=== PATIENT | female | born 1970 | race American Indian/Alaskan Native ===

== ENCOUNTER 2019-02-08 14:02 | Emergency (ER) | payer OTHER, MEDICARE ==
[2019-02-08 15:01] VITALS: BP 150/93
[2019-02-08] MEDS ORDERED: traMADol 50 MG TAB PO ONE (16:17)
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
== END 2019-02-08 18:23 | disposition home or self-care (01) ==
LOC: ED 14:02
DX: S16.1XXA Strain of muscle, fascia and tendon at neck level, initial encounter (principal); S39.012A Strain of muscle, fascia and tendon of lower back, initial encounter; F31.9 Bipolar disorder, unspecified; J45.909 Unspecified asthma, uncomplicated; F17.200 Nicotine dependence, unspecified, uncomplicated; F12.10 Cannabis abuse, uncomplicated; Z88.6 Allergy status to analgesic agent; V49.59XA Passenger injured in collision with other motor vehicles in traffic accident, initial encounter; Y93.89 Activity, other specified; Y92.410 Unspecified street and highway as the place of occurrence of the external cause; Y99.8 Other external cause status
CPT/HCPCS: 72040; 72100

== ENCOUNTER 2019-03-14 08:45 | Emergency (ER) | payer OTHER, MEDICARE ==
[2019-03-14 08:49] VITALS: BP 137/97
== END 2019-03-14 09:00 | disposition left against medical advice (07) ==
LOC: ED 08:45
DX: M54.2 Cervicalgia (principal); Z53.21 Procedure and treatment not carried out due to patient leaving prior to being seen by health care provider

== ENCOUNTER 2020-01-09 13:13 | Emergency (ER) | payer MEDICARE ==
[2020-01-09 13:32] VITALS: BP 154/103
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
== END 2020-01-09 14:16 | disposition home or self-care (01) ==
LOC: ED 13:13
DX: H10.31 Unspecified acute conjunctivitis, right eye (principal); A49.9 Bacterial infection, unspecified; F31.9 Bipolar disorder, unspecified; J45.909 Unspecified asthma, uncomplicated; Z79.899 Other long term (current) drug therapy; Z79.2 Long term (current) use of antibiotics; Z98.890 Other specified postprocedural states; Z88.6 Allergy status to analgesic agent
CPT/HCPCS: 99282

== ENCOUNTER 2020-08-31 19:03 | Emergency (ER) | payer MEDICARE ==
[2020-08-31] MEDS ORDERED: HYDROcodone/ACETAMINOPHEN 5-325 MG TAB PO ONE (19:40)
[2020-08-31 20:29] VITALS: BP 129/90
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
== END 2020-08-31 21:27 | disposition home or self-care (01) ==
LOC: ED 19:03
DX: S62.615A Displaced fracture of proximal phalanx of left ring finger, initial encounter for closed fracture (principal); S39.012A Strain of muscle, fascia and tendon of lower back, initial encounter; S29.012A Strain of muscle and tendon of back wall of thorax, initial encounter; S63.615A Unspecified sprain of left ring finger, initial encounter; I10 Essential (primary) hypertension; F31.9 Bipolar disorder, unspecified; J45.909 Unspecified asthma, uncomplicated; F17.200 Nicotine dependence, unspecified, uncomplicated; Z98.890 Other specified postprocedural states; Z79.899 Other long term (current) drug therapy; Z88.8 Allergy status to other drugs, medicaments and biological substances; V49.59XA Passenger injured in collision with other motor vehicles in traffic accident, initial encounter; Y92.410 Unspecified street and highway as the place of occurrence of the external cause; Y93.89 Activity, other specified; Y99.8 Other external cause status
CPT/HCPCS: 72070; 72100

== ENCOUNTER 2020-09-30 18:59 | Inpatient (IN) | payer MEDICARE ==
[2020-09-30] MEDS ORDERED: HEPARIN 10,000 UNITS/10 ML VIAL ONE ×2 (19:18→19:44)
[2020-09-30] MEDS ORDERED: ASPIRIN 325 MG TAB ONE (19:19)
[2020-09-30] MEDS ORDERED: CLOPIDOGREL 300 MG TAB ONE (19:20)
[2020-09-30] MEDS ORDERED: AMIODARONE 150 MG/3 ML INJ IV ONE ×2 (19:20→20:14)
[2020-09-30] MEDS ORDERED: CLOPIDOGREL 300 MG TAB PO ONE (19:21)
[2020-09-30] MEDS ORDERED: HEPARIN/ 0.45% NACL DRIP 25,000 UNIT/500 ML BAG ONE (19:21)
--- NOTE | 2020-09-30 19:30 | Emergency Department Report ---
ED Chest Pain HPI - General Stated Complaint: ARM PAIN Time Seen by Provider: 09/30/20 19:22 - History of Present Illness Initial Comments: 50-year-old female presents to ED with complaint of right arm pain and chest pain. Patient states symptoms began approximately 1 hour ago after coming home from [employer] practice. Patient reports associated diaphoresis and nausea. EMS presents with EKG concerning for STEMI. They also report pt had a run of [employer] while waiting for room assignment. MD Complaint: other -: hour(s) (1) Onset: during rest Pain Location: substernal, other (right arm) Quality: aching Consistency: constant Improves With: nothing Worsens With: nothing re: nausea, diaphoresis. denies: dyspnea - Related Data Previous Rx's Medication Instructions Recorded Last Taken Type Aspirin [Adult Aspirin] 81 mg PO DAILY #30 tablet. 04/16/20 Unknown Rx AtorvaSTATin [Lipitor] 40 mg PO QHS #30 tab 04/16/20 Unknown Rx Pantoprazole [Protonix TAB] 40 mg PO QDAC #30 tablet 04/16/20 Unknown Rx Spironolactone [Aldactone] 25 mg PO QDAY #30 tablet 04/16/20 Unknown Rx carvediloL [Coreg] 6.25 mg PO BID #60 tablet 04/16/20 Unknown Rx lisinopriL [Zestril TAB] 5 mg PO QDAY #30 tablet 04/16/20 Unknown Rx Cyclobenzaprine [Flexeril] 10 mg PO TID PRN #20 tablet 08/31/20 Unknown Rx HYDROcodone/APAP 5-325 [[place] 1 each PO Q6HR PRN #10 tablet 08/31/20 Unknown Rx 5/325] Ibuprofen [Motrin 400 MG tab] 400 mg PO TID 5 Days #15 tablet 08/31/20 Unknown Rx Allergies Allergy/AdvReac Type Severity Reaction Status Date / Time aspirin Allergy Swelling Verified 04/12/20 14:57 Heart Score - HEART Score History: Highly suspicious EKG: Non-specific Age: 45-65 Risk factors: 1-2 risk factors Troponin: > 3x normal limit HEART Score: 7 - EKG Read Time Time EKG Completed: 19:08 EKG Read Time: 19:09 ED Review of Systems ROS: Stated complaint: POSS STROKE Other details as noted in HPI Comment: All other systems reviewed and negative Constitutional: denies: fever Respiratory: denies: shortness of breath Cardiovascular: chest pain Musculoskeletal: other (reports right arm pain) ED Past Medical Hx - Past Medical History Hx Hypertension: Yes Hx Psychiatric Treatment: Yes (bipolar) Hx Asthma: Yes - Surgical History Additional Surgical History: - Social History Smoking Status: Current Every Day Smoker Substance Use Type: None - Medications Home Medications: Home Medications Medication Instructions Recorded Confirmed Last Taken Type Aspirin [Adult Aspirin] 81 mg PO DAILY #30 tablet.dr 04/16/20 Unknown Rx AtorvaSTATin [Lipitor] 40 mg PO QHS #30 tab 04/16/20 Unknown Rx Pantoprazole [Protonix TAB] 40 mg PO QDAC #30 tablet 04/16/20 Unknown Rx Spironolactone [Aldactone] 25 mg PO QDAY #30 tablet 04/16/20 Unknown Rx carvediloL [Coreg] 6.25 mg PO BID #60 tablet 04/16/20 Unknown Rx lisinopriL [Zestril TAB] 5 mg PO QDAY #30 tablet 04/16/20 Unknown Rx Cyclobenzaprine [Flexeril] 10 mg PO TID PRN #20 tablet 08/31/20 Unknown Rx HYDROcodone/APAP 5-325 [[place] 1 each PO Q6HR PRN #10 tablet 08/31/20 Unknown Rx 5/325] Ibuprofen [Motrin 400 MG tab] 400 mg PO TID 5 Days #15 tablet 08/31/20 Unknown Rx ED Physical Exam - General General appearance: alert, other (Appears uncomfortable) - Head Head exam: Present: atraumatic, normocephalic - Eye Eye exam: Present: normal appearance, EOMI - ENT ENT exam: Present: mucous membranes moist - Neck Neck exam: Present: normal inspection - Respiratory Respiratory exam: Present: normal lung sounds bilaterally. Absent: respiratory distress - Cardiovascular Cardiovascular Exam: Present: regular rate, normal rhythm - GI/Abdominal GI/Abdominal exam: Present: soft. Absent: distended, tenderness - Extremities Exam Extremities exam: Present: normal inspection - Neurological Exam Neurological exam: Present: alert, oriented X3, CN II-XII intact. Absent: motor sensory deficit - Psychiatric Psychiatric exam: Present: normal affect, normal mood - Skin Skin exam: Present: warm, dry, intact, normal color ED Course Vital Signs 09/30/20 09/30/20 09/30/20 19:02 19:25 19:32 Temperature 98 F Pulse Rate 100 H 100 H 96 H Pulse Rate [ Bilateral Throughout] Respiratory 20 20 Rate Respiratory Rate [Bilateral Throughout] Blood Pressure 134/102 Blood Pressure 138/103 [Left] O2 Sat by Pulse 100 100 Oximetry 09/30/20 09/30/20 09/30/20 20:54 21:15 21:20 Temperature 98.2 F 98.4 F Pulse Rate Pulse Rate [ Bilateral Throughout] Respiratory Rate Respiratory Rate [Bilateral Throughout] Blood Pressure 104/82 Blood Pressure [Left] O2 Sat by Pulse Oximetry 09/30/20 09/30/20 09/30/20 21:31 21:41 21:51 Temperature Pulse Rate 102 H 101 H 98 H Pulse Rate [ Bilateral Throughout] Respiratory 13 28 H 31 H Rate Respiratory Rate [Bilateral Throughout] Blood Pressure 105/79 105/79 115/92 Blood Pressure [Left] O2 Sat by Pulse 100 Oximetry 09/30/20 09/30/20 09/30/20 21:52 22:00 22:11 Temperature Pulse Rate 98 H 100 H Pulse Rate [ 101 H Bilateral Throughout] Respiratory 31 H 26 H Rate Respiratory 19 Rate [Bilateral Throughout] Blood Pressure 121/82 104/82 Blood Pressure [Left] O2 Sat by Pulse 100 100 Oximetry 09/30/20 22:21 Temperature Pulse Rate 101 H Pulse Rate [ Bilateral Throughout] Respiratory 27 H Rate Respiratory Rate [Bilateral Throughout] Blood Pressure 119/92 Blood Pressure [Left] O2 Sat by Pulse 98 Oximetry - Consultations Consultation #1: 09/30/20 19:[address] Patiño for review. Informed of pt's complaint of right arm pain and chest pain. Previous records reviewed w/ Dr Patiño. Previous EKG sent for review also. STEMI alert called. ED Medical Decision Making - Lab Data Result diagrams: 09/30/20 19:30 09/30/20 19:30 - EKG Data -: EKG Interpreted by Me EKG shows normal: sinus rhythm, axis, intervals, QRS complexes Rate: normal - EKG Data Interpretation: LVH, other (ST elevations present in lateral leads) - Medical Decision Making 50-year-old female presents to ED with right arm pain, chest pain, diaphoresis, and nausea. EKG concerning for STEMI. It was sent to accountancy professor and reviewed. STEMI alert was called. Patient reports allergy to aspirin, so aspirin was held. Patient was given Plavix and heparin. Patient had a run of V. tach also, so a bolus of amiodarone was administered. Patient taken to [facility] Department Chair by Dr. Patiño. Patient will be admitted to hospitalist, Dr. Powers. - Differential Diagnosis STEMI, PE, pneumonia Critical Care Time: Yes Critical care time in (mins) excluding proc time.: 35 Critical care attestation.: If time is entered above; I have spent that time in minutes in the direct care of this critically ill patient, excluding procedure time. Critical Care Time: 35 min ED Disposition Clinical Impression: STEMI (ST elevation myocardial infarction) Disposition: [id number] OP ADMIT IP TO THIS HOSP Is pt being admited?: Yes Condition: Stable
[2020-09-30] MEDS: HEPARIN 10,000 UNITS/10 ML VIAL IV ONE (19:34)
[2020-09-30] MEDS: AMIODARONE 150 MG in DEXTROSE 5% IN WATER 97 ML IV ONE ×2 (19:36→20:00)
[2020-09-30] MEDS ORDERED: VERAPAMIL 5 MG/2 ML INJ ONE (19:44)
[2020-09-30] MEDS ORDERED: HEPARIN/NS 5000 UNIT/500ML 1,000 ML IR ONE (19:44)
[2020-09-30] MEDS ORDERED: LIDOCAINE (2%) 20 MG/1 ML VIAL 20 ML MDV INFILTRATI ONE (19:45)
[2020-09-30] MEDS ORDERED: fentaNYL 100 MCG/2 ML INJ ONE (19:45)
[2020-09-30] MEDS ORDERED: MIDAZOLAM 5 MG/5 ML INJ MDV IV ONE (19:45)
[2020-09-30] MEDS ORDERED: NITROGLYCERIN SYRINGE 3 ML ONE (19:45)
[2020-09-30 19:46] LABS: Hematocrit 28.2 % (30.3-42.9); Hemoglobin 8.9 gm/dl (10.1-14.3); Mean Corpuscular HGB Conc 32 % (30-34); Mean Corpuscular Volume 72 fl (79-97); Platelet Count 356 K/mm3 (140-440); Red Blood Count 3.93 M/mm3 (3.65-5.03)
[2020-09-30 19:47] LABS: Red Cell Distribution Width 21.3 % (13.2-15.2)
[2020-09-30 19:51] LABS: INR 1.05 (0.87-1.13)
[2020-09-30] MEDS ORDERED: SODIUM CHLORIDE 0.9% 1000 ML 1,000 ML ONE (19:53)
[2020-09-30 19:55] LABS: Partial Thromboplastin Time 105.1 Sec. (24.2-36.6)
[2020-09-30 19:56] LABS: Creatine Kinase MB 12.8 ng/mL (0.0-4.0)
[2020-09-30 19:57] LABS: BUN/Creatinine Ratio 15; Blood Urea Nitrogen 15 mg/dL (7-17); Calcium 9.1 mg/dL (8.4-10.2); Hemolysis Index 49
[2020-09-30] MEDS: AMIODARONE 900 MG in DEXTROSE 5% IN WATER 482 ML IV SCH (20:00)
[2020-09-30 20:15] LABS: Chol/HDL Ratio 2.42 %; HDL Cholesterol 73 mg/dL (40-59); LDL Cholesterol,Direct 89 mg/dL (50-130)
[2020-09-30 20:20] LABS: Anisocytosis 1+; Hypochromasia 1+; Macrocytosis 1+; Schistocytes Rare; Total Cells Counted 100
[2020-09-30 20:21] LABS: Ovalocytes Few; Platelet Estimate Consistent w Auto; Tear Drop Cells Rare
[2020-09-30] MEDS ORDERED: ACETAMINOPHEN 325 MG TAB PO PRN (20:43)
--- NOTE | 2020-09-30 20:43 | History and Physical Report ---
History of Present Illness Chief complaint: My chest is hurting History of present illness: 50 YO Female with Asthma, Nicotine Dependence, ETOH Dependence, Bipolar Disorder presents to ED for evaluation. Patient reports "my chest is hurting". Patient states that she has experienced a sudden onset of chest pain that began over the past 4 hours. Patient states that pain is 6/10, constant, radiates to the right arm, associated with diaphoresis, associated with shortness of breath. EMS was notified and upon arrival the patient was found to be in distress. An EKG revealed EKG changes. A code stroke was called and the patient was subsequently transported to [facility] for further care and evaluation of the aforementioned symptoms. The patient was seen and evaluated in the emergency department. All lab and imaging studies reviewed. Patient found to have ST elevation AL. Patient taken urgently to the cardiac [facility]. Cardiology team consulted. Patient denies fever, chills, palpitation, productive cough, skin rash, recent ill contacts, or known exposure to COVID-19. Prior admission on 04/12/2020 reviewed. All medication listed at time of admission has been reconciled. Past History Past Medical History: other (See HPI) Past Surgical History: Social history: single, smoking Family history: diabetes, hypertension Medications and Allergies Allergies Allergy/AdvReac Type Severity Reaction Status Date / Time aspirin Allergy Swelling Verified 04/12/20 14:57 Home Medications Medication Instructions Recorded Confirmed Last Taken Type Aspirin [Adult Aspirin] 81 mg PO DAILY #30 tablet. 04/16/20 Unknown Rx AtorvaSTATin [Lipitor] 40 mg PO QHS #30 tab 04/16/20 Unknown Rx Pantoprazole [Protonix TAB] 40 mg PO QDAC #30 tablet 04/16/20 Unknown Rx Spironolactone [Aldactone] 25 mg PO QDAY #30 tablet 04/16/20 Unknown Rx carvediloL [Coreg] 6.25 mg PO BID #60 tablet 04/16/20 Unknown Rx lisinopriL [Zestril TAB] 5 mg PO QDAY #30 tablet 04/16/20 Unknown Rx Cyclobenzaprine [Flexeril] 10 mg PO TID PRN #20 tablet 08/31/20 Unknown Rx HYDROcodone/APAP 5-325 [[place] 1 each PO Q6HR PRN #10 tablet 08/31/20 Unknown Rx 5/325] Ibuprofen [Motrin 400 MG tab] 400 mg PO TID 5 Days #15 tablet 08/31/20 Unknown Rx Active Meds: Active Medications Heparin Sodium/Sodium Chloride (Heparin/ 0.45% Nacl-25,000 Unit/500 Ml) 25,000 unit in 500 mls @ 15 mls/hr IV TITRATE GANESH; Protocol Review of Systems Constitutional: no weight loss, no weight gain, no fever, no chills Ears, nose, mouth and throat: no ear pain, no ear discharge, no tinnitis, no decreased hearing, no nose pain, no nasal congestion Breasts: no change in shape, no swelling, no mass Cardiovascular: chest pain, shortness of breath, no orthopnea, no palpitations Respiratory: no cough, no excessive sputum Gastrointestinal: no abdominal pain, no nausea, no vomiting, no diarrhea Genitourinary Female: no pelvic pain, no flank pain, no dysuria, no urinary frequency, no urgency Rectal: no pain, no incontinence, no bleeding Musculoskeletal: no neck stiffness, no neck pain, no arm numbness/tingling, no low back pain Integumentary: no rash, no redness, no sores Neurological: no head injury, no paralysis, no weakness, no parathesias, no seizures, no syncope, no tremors Psychiatric: no anxiety, no change in sleep habits, no insomnia, no hypersomnia, no change in libido, no suicidal ideation, no disorientation Endocrine: no cold intolerance, no polyphagia, no excessive thirst, no polydipsia, no flushing Hematologic/Lymphatic: no easy bruising, no easy bleeding, no lymphadenopathy Allergic/Immunologic: no urticaria, no wheezing, no persistent infections, no anaphylaxis Exam - Constitutional Vitals: Temp Pulse Resp BP Pulse Ox 98 F 96 H 20 138/103 100 09/30/20 19:25 09/30/20 19:32 09/30/20 19:32 09/30/20 19:32 09/30/20 19:32 General appearance: Present: mild distress - EENT Eyes: Present: PERRL ENT: hearing intact, clear oral mucosa - Neck Neck: Present: supple, normal ROM - Respiratory Respiratory effort: normal Respiratory: bilateral: CTA - Cardiovascular Heart Sounds: Present: S1 & S2. Absent: rub, click - Extremities Extremities: pulses symmetrical, No edema Peripheral Pulses: within normal limits - Abdominal General gastrointestinal: Present: soft, non-tender, non-distended, normal bowel sounds Female genitourinary: Present: normal - Integumentary Integumentary: Present: clear, warm, dry - Musculoskeletal Musculoskeletal: gait normal, strength equal bilaterally - Psychiatric Psychiatric: appropriate mood/affect, intact judgment & insight - Neurologic Neurologic: CNII-XII intact, moves all extremities HEART Score - HEART Score Troponin: Troponin T 0.110 ng/mL (0.00-0.029) H* 09/30/20 19:30 Results - Labs CBC & Chem 7: 09/30/20 19:30 09/30/20 19:30 Labs: Abnormal lab results 09/30/20 09/30/20 09/30/20 Range/Units 19:30 19:30 19:30 Hgb 8.9 L (10.1-14.3) gm/dl Hct 28.2 L (30.3-42.9) % MCV 72 L (79-97) fl MCH 23 L (28-32) pg RDW 21.3 H (13.2-15.2) % Seg Neuts % (Manual) 73.0 H (40.0-70.0) % APTT 105.1 H* (24.2-36.6) Sec. Glucose 123 H (65-100) mg/dL Total Creatine Kinase 200 H (30-135) units/L CK-MB (CK-2) 12.8 H (0.0-4.0) ng/mL CK-MB (CK-2) Rel Index 6.4 H (0-4) Troponin T 0.110 H* (0.00-0.029) ng/mL Triglycerides 151 H (2-149) mg/dL HDL Cholesterol 73 H (40-59) mg/dL Assessment and Plan - Patient Problems (1) STEMI (ST elevation myocardial infarction) Current Visit: Yes Status: Acute Plan to address problem: EKG conducted and found to have EKG changes consistent with ST elevation AL. Cardiology team consulted. Patient taken urgently to [facility]. Patient admitted to IMCU postoperatively. Heparin drip, amiodarone drip. Further care as per cardiology team (2) Diastolic CHF Current Visit: Yes Status: Acute Qualifiers: Heart failure chronicity: acute Qualified Code(s): I50.31 - Acute diastolic (congestive) heart failure Plan to address problem: Strict I's and O, monitor urine output every shift, daily weight, afterload reduction, cardiology team consulted. (3) Nicotine dependence Current Visit: Yes Status: Acute Plan to address problem: Supportive care, smoking cessation counseling, behavior change counseling, +15 minutes. (4) Alcohol dependence Current Visit: Yes Status: Acute Plan to address problem: CIWA protocol: Thiamine, folic acid, multivitamin daily, supportive care. (5) Bipolar disorder Current Visit: Yes Status: Acute Plan to address problem: Mental health team consulted, (6) DVT prophylaxis Current Visit: No Status: Acute Plan to address problem: SCDs bilateral lower extremities while in bed, continue therapeutic anticoagulation
[2020-09-30] MEDS ORDERED: CYCLOBENZAPRINE 10 MG TAB PO PRN (20:45)
[2020-09-30] MEDS ORDERED: LORazepam 2 MG/ML VIAL IV PRN (20:54)
[2020-09-30] MEDS ORDERED: HEPARIN 10,000 UNITS/10 ML VIAL IV PRN (20:55)
[2020-09-30] MEDS: ALBUTEROL 2.5 MG/3 ML NEBU IH PRN (21:50)
[2020-09-30] MEDS ORDERED: THIAMINE 100 MG, FOLIC ACID 1 MG, MULTIPLE VITAMIN INJ, ADULT 10 ML in SODIUM CHLORIDE ... IV ONE (21:54)
[2020-09-30] MEDS ORDERED: MULTIVITAMINS ,THERAPEUTIC TAB PO ONE (21:55)
[2020-09-30] MEDS ORDERED: THIAMINE 100 MG TAB PO ONE (21:55)
[2020-09-30] MEDS: carvediloL 6.25 MG TAB PO SCH (23:20)
[2020-09-30] MEDS: oxyCODONE /ACETAMINOPHEN 5-325MG TAB PO PRN (23:21)
[2020-10-01 00:33] LABS: Hematocrit 30.4 % (30.3-42.9)
--- NOTE | 2020-10-01 00:36 | Cardiac Catherization Report ---
DATE OF PROCEDURE: 09/30/2020 CARDIAC CATHETERIZATION INDICATIONS FOR PROCEDURE: The patient is a 50-year-old -English female with a history of severe nonischemic dilated cardiomyopathy, polysubstance abuse, who presents with 1 hour of chest pain and anterior ST elevation. STEMI protocol was initiated. The patient was loaded with aspirin, Plavix, heparin. DESCRIPTION OF PROCEDURE: The patient was brought to cathode ray tube salvage processor in an urgent fashion, prepped and draped in sterile fashion. Apparently, there was a radial procedure performed in March. She has no active radial pulse at this point and thus we used a groin approach. A 6-Emirati sheath was placed in the right common femoral artery via modified Seldinger technique. Heparin given. Abnormal ACT confirmed. She has a horizontal aorta and we used a JL5 catheter to engage the left main without difficulty. Cineangiography performed in all projections. Next JR4 catheter used to engage the right coronary. Cineangiography performed in all projections. I avoided the left ventricle due to recent runs of ventricular tachycardia. She was given IV amiodarone in the emergency room. We will check an echocardiogram. She has a known severe dilated cardiomyopathy. Aortic pressure is 120/80. Her rhythm is sinus tachycardia, heart rate of 110. Angiographically normal right coronary. Her left main is without significant disease, bifurcates into left anterior descending and left circumflex. Left circumflex, moderate sized vessel, courses AV groove. No significant disease. LAD is a moderate sized vessel, courses anterior intergroove, wraps around the apex. There is a periapical cap thrombus. This is the culprit lesion with ROSEANNE 0 flow. We turned our attention to PCI. Abnormal ACT confirmed. EBU 4 guide used to engage the left main without difficulty. We used a [place] wire to cross the lesion without difficulty. We used a 2.0 balloon. This is a small distal LAD. Multiple balloon angioplasties were performed with some improved flow. [place] thrombectomy catheter was also used with some success, some improved flow. Final flow was ROSEANNE 1 to ROSEANNE 2 flow. The patient is now chest pain free. Her rhythm is now normal. We will continue amiodarone drip for now. I feel the artery is too small for a stent. We will continue IV heparin. We will need to watch her hemoglobin closely. The patient is clinically stable. I directly supervised administration of moderate sedation with fentanyl and Versed from 7:00 p.m. to 8:10 p.m. No immediate complications. CONCLUSIONS: 1. Acute atherothrombotic occlusion of the distal periapical LAD, successful POBA angioplasty and manual thrombectomy with final ROSEANNE 2 flow. 2. No other significant disease noted. 3. No left ventriculography performed due to recent ventricular tachycardia. PLAN: We will continue IV heparin, aspirin, Plavix, obviously need to watch hemoglobin. Obviously, the patient needs to hold off on polysubstance abuse. Results of procedure explained to the patient at length. Standard groin care, post sheath once ACT less than 170. The patient has been seen by ____ in March. We will turn the patient over to his practice in a.m. The patient is clinically stable at this point. TID: [id number] RECEIPT: [id number] REJI/SHARON/MAGALY
[2020-10-01 00:43] LABS: INR 1.14 (0.87-1.13)
[2020-10-01 00:56] LABS: Creatine Kinase MB 162.7 ng/mL (0.0-4.0)
[2020-10-01 02:45] LABS: Hematocrit 28.2 % (30.3-42.9); Hemoglobin 8.6 gm/dl (10.1-14.3); Mean Corpuscular HGB Conc 30 % (30-34); Mean Corpuscular Volume 71 fl (79-97); Platelet Count 311 K/mm3 (140-440); Red Blood Count 3.97 M/mm3 (3.65-5.03); Red Cell Distribution Width 20.5 % (13.2-15.2)
[2020-10-01 03:04] LABS: Alanine Aminotransferase 29 units/L (7-56); Albumin 3.6 g/dL (3.9-5); BUN/Creatinine Ratio 21; Blood Urea Nitrogen 17 mg/dL (7-17); Calcium 8.3 mg/dL (8.4-10.2); Hemolysis Index 0
--- NOTE | 2020-10-01 03:19 | XRay Report ---
CHEST 1 VIEW 10/01/2020 2:02 AM INDICATION / CLINICAL INFORMATION: post pci. COMPARISON: 04/12/20 FINDINGS: SUPPORT DEVICES: None. HEART / MEDIASTINUM: No significant abnormality. LUNGS / PLEURA: Mild bilateral interstitial prominence. No acute airspace disease. No pneumothorax. ADDITIONAL FINDINGS: No significant additional findings. IMPRESSION: 1. Mild prominence of interstitial lung markings. Signer Name: Alondra Arriaga MD Signed: 10/01/2020 3:14 AM Workstation Name: [id number]
[2020-10-01 03:23] LABS: Creatine Kinase MB 190.6 ng/mL (0.0-4.0)
[2020-10-01 03:37] LABS: Anisocytosis 1+; Total Cells Counted 100
[2020-10-01 03:38] LABS: Hypochromasia 2+; Ovalocytes Few; Platelet Estimate Consistent w Auto; Poikilocytosis 1+; Schistocytes Rare; Tear Drop Cells Rare
[2020-10-01] MEDS: oxyCODONE /ACETAMINOPHEN 5-325MG TAB PO PRN ×2 (06:02→12:41)
--- NOTE | 2020-10-01 06:39 | Consultation ---
DATE OF CONSULTATION: 09/30/2020 CARDIAC CONSULTATION REFERRING PHYSICIAN: Dr. Ervin in the ER. REASON FOR CONSULTATION: Advice and opinion regarding the patient with chest pain and ST elevation. HISTORY OF PRESENT ILLNESS: The patient is a 50-year-old -Dutch female with a history of a severe nonischemic dilated cardiomyopathy, polysubstance abuse including alcohol, tobacco, and cocaine. She also has known chronic anemia and has had a GI workup and has required transfusion. She presents with chest pain and right arm pain, anterior ST elevation, seen in the emergency room, had an episode of VT, required IV amiodarone and ACLS protocol. A 30 minutes of critical care time is spent here. STEMI protocol was initiated. The patient was given aspirin, Plavix, and heparin. The patient with 10/10 chest pain, diaphoretic and in some distress. No fevers, chills, nausea, or vomiting. Denies any COVID contact, needs to be ruled out for COVID. PAST MEDICAL HISTORY: As aforementioned. PHYSICAL EXAMINATION: VITAL SIGNS: Tele reveals sinus rhythm, heart rate of 110. She had some nonsustained VT. Blood pressure is 120/70. She is afebrile. O2 sats 99% on room air. GENERAL: This is a middle-aged -Dutch female in some moderate distress. HEENT: Sclerae are anicteric. PERRL. NECK: Supple. No masses. No JVD. CHEST: Clear to auscultation bilaterally. Good air movement CARDIOVASCULAR: Regular S1, S2. ABDOMEN: Soft, nontender, nondistended. Normoactive bowel sounds in upper quadrants. No mass or bruits. EXTREMITIES: No cyanosis, clubbing, or edema. Good peripheral pulses. SKIN: Intact. No rashes. LABORATORY DATA: WBC is 7.8, hemoglobin 8.9, hematocrit 28, platelets 356. Sodium 143, potassium 4.2, creatinine is 1.0, glucose 123. First troponin is 1.1. Total CK is 200. LDL is 89, HDL is 73. UDS is not complete. EKG reveals anterior ST elevation with reciprocal changes laterally. ASSESSMENT AND PLAN: In summary, the patient is a 50-year-old -Dutch female with a history of severe nonischemic dilated cardiomyopathy, polysubstance abuse, who presents with 1 hour of chest pain, anterior ST elevation in the presence of recent polysubstance abuse. STEMI protocol was initiated. Aspirin, Plavix, and heparin given. Further plans contingent on cardiac catheterization results. TID: [id number] RECEIPT: [id number] SBM/[id number]
[2020-10-01] MEDS: HEPARIN/ 0.45% NACL DRIP 25,000 UNIT/500 ML BAG IV SCH (07:33)
[2020-10-01] MEDS: LISINOPRIL 5 MG TAB PO SCH (09:41)
[2020-10-01] MEDS: carvediloL 6.25 MG TAB PO SCH (09:45)
[2020-10-01] MEDS: PANTOPRAZOLE 40 MG TAB PO SCH (09:45)
[2020-10-01] MEDS: SPIRONOLACTONE 25 MG TAB PO SCH (09:46)
[2020-10-01] MEDS: FOLIC ACID 1 MG TAB PO SCH (09:46)
[2020-10-01] MEDS ORDERED: ASPIRIN EC 325 MG TAB PO SCH (10:00)
[2020-10-01] MEDS ORDERED: CLOPIDOGREL 75 MG TAB PO SCH (10:00)
--- NOTE | 2020-10-01 10:27 | Consultation ---
History of Present Illness - Reason for Consult Consult date: 10/01/20 Reason for consult: hx of bipolar - History of Present Psychiatric Illness Per ED Note: 50-year-old female presents to ED with complaint of right arm pain and chest pain. Patient states symptoms began approximately 1 hour ago after coming home from [facility]. Patient reports associated diaphoresis and nausea. EMS presents with EKG concerning for STEMI. They also report pt had a run of vtach while waiting for room assignment. Randall Briones is a 50y/o male patient who was seen today. The patient is a/o x 3. She says she has a history of bipolar and hasn't been on any meds in about two years. She denies SI/HI or any hallucinations of any kind. Although she says she has attempted suicide in the past. She says she has been having a lot of mood swings due to her bipolar. The patient says she was on risperidone, trazodone and klonopin. She says they kept her stable. She could not recall why she stopped taking them. She denies any illicit drug use. Diagnoses: Bipolar Suicide attempts or Self-harm behavior: Yes Prior psychiatric hospitalizations: Yes Substance Abuse history: Denies Previous psychiatric medications tried: off for about two years Outpatient treatment: Denies PAST MEDICAL HISTORY: None reported Family Psychiatric History: None reported or documented SOCIAL HISTORY Marital Status: Single Living Arrangements: Employment Status: Employed Access to guns/weapons: Denies Education: high school History of Abuse: none reported Legal History: none reported REVIEW OF SYSTEMS Constitutional: Negative for weight loss ENT: Negative for stridor Respiratory: Negative for cough or hemoptysis All other systems reviewed and are negative MENTAL STATUS EXAMINATION General Appearance and Behavior: Age appropriate, good hygiene, wearing appropriate clothes, calm, cooperative, good eye contact Cooperation: Participating, guarded Psychomotor Behavior: normal Mood: okay Affect and affective range: congruent with stated mood Thought Process: goal oriented Thought Content: None Speech: Normal volume, Regular rate and rhythm, Suicidal Ideation: Denies Homicidal Ideation: Denies Hallucinations: Denies Delusions: None elicited Impulse Control: Normal Insight and Judgment: Normal insight and judgment Memory: Normal Attention: Limited Orientation: Alert, oriented Assessment and Plan (1) Hx of Bipolar Treatment Plan Will restart previous meds the patient states worked for her. She is to reestablish outpatient psychiatry upon discharge Risperidone 0.25mg po BID Trazodone 50mg po qhs Medical: Per primary Sitter: Defer to primary Disposition: Do not recommend acute psychiatric inpatient treatment. The city assessor to give the patient all necessary resources Will sign off. Case staffed with Dr. Austin. Medications and Allergies Allergies Allergy/AdvReac Type Severity Reaction Status Date / Time aspirin Allergy Swelling Verified 04/12/20 14:57 Home Medications Medication Instructions Recorded Confirmed Last Taken Type Aspirin [Adult Aspirin] 81 mg PO DAILY #30 tablet.dr 04/16/20 Unknown Rx AtorvaSTATin [Lipitor] 40 mg PO QHS #30 tab 04/16/20 Unknown Rx Pantoprazole [Protonix TAB] 40 mg PO QDAC #30 tablet 04/16/20 Unknown Rx Spironolactone [Aldactone] 25 mg PO QDAY #30 tablet 04/16/20 Unknown Rx carvediloL [Coreg] 6.25 mg PO BID #60 tablet 04/16/20 Unknown Rx lisinopriL [Zestril TAB] 5 mg PO QDAY #30 tablet 04/16/20 Unknown Rx Cyclobenzaprine [Flexeril] 10 mg PO TID PRN #20 tablet 08/31/20 Unknown Rx HYDROcodone/APAP 5-325 [[place] 1 each PO Q6HR PRN #10 tablet 08/31/20 Unknown Rx 5/325] Ibuprofen [Motrin 400 MG tab] 400 mg PO TID 5 Days #15 tablet 08/31/20 Unknown Rx Active Meds: Active Medications Acetaminophen (Acetaminophen 325 Mg Tab) 650 mg PO Q6H PRN PRN Reason: Pain MILD(1-3)/Fever >100.5/[place] Albuterol (Albuterol 2.5 Mg/3 Ml Nebu) 2.5 mg IH Q3HRT PRN PRN Reason: Shortness Of Breath Last Admin: 09/30/20 21:50 Dose: 2.5 mg Documented by: Aspirin (Aspirin Ec 325 Mg Tab) 325 mg PO QDAY [facility] Last Admin: 10/01/20 09:50 Dose: Not Given Documented by: Atorvastatin Calcium (Atorvastatin 40 Mg Tab) 40 mg PO QHS [facility] Last Admin: 09/30/20 23:20 Dose: 40 mg Documented by: Carvedilol (Carvedilol 6.25 Mg Tab) 6.25 mg PO BID [facility] Last Admin: 10/01/20 09:45 Dose: 6.25 mg Documented by: Clopidogrel Bisulfate (Clopidogrel 75 Mg Tab) 75 mg PO QDAY [facility] Last Admin: 10/01/20 09:45 Dose: 75 mg Documented by: Cyclobenzaprine HCl (Cyclobenzaprine 10 Mg Tab) 10 mg PO TID PRN PRN Reason: Muscle Spasm Folic Acid (Folic Acid 1 Mg Tab) 1 mg PO QDAY [facility] Last Admin: 10/01/20 09:46 Dose: 1 mg Documented by: Heparin Sodium (Porcine) (Heparin 10,000 Units/10 Ml Vial) 2,100 unit 40 unit/kg (2100 unit) IV Q6H PRN PRN Reason: Anti-Xa Assay < 0.1 units/ml Hydromorphone HCl (Hydromorphone 1 Mg/1 Ml Inj) 0.5 mg IV Q12H PRN PRN Reason: Pain , Severe (7-10) Heparin Sodium/Sodium Chloride (Heparin/ 0.45% Nacl-25,000 Unit/500 Ml) 25,000 unit in 500 mls @ 15 mls/hr IV TITRATE GANESH; Protocol Last Titration: 10/01/20 07:36 Dose: 0 units/hr, 0 mls/hr Documented by: Amiodarone HCl 900 mg/ (Dextrose) 500 mls @ 33.333 mls/hr IV DIRECT GANESH; Protocol Last Admin: 09/30/20 20:00 Dose: 0 mls Documented by: Lisinopril (Lisinopril 5 Mg Tab) 5 mg PO QDAY [facility] Last Admin: 10/01/20 09:41 Dose: 5 mg Documented by: Lorazepam (Lorazepam 2 Mg/Ml Vial) 2 mg IV Q1HR PRN PRN Reason: CIWA-Ar 8-15 Oxycodone/Acetaminophen (Oxycodone /Acetaminophen 5-325mg Tab) 1 tab PO Q12H PRN PRN Reason: Pain, Moderate (4-6) Last Admin: 10/01/20 06:02 Dose: 1 tab Documented by: Pantoprazole Sodium (Pantoprazole 40 Mg Tab) 40 mg PO QDAC [facility] Last Admin: 10/01/20 09:45 Dose: 40 mg Documented by: Sodium Chloride (Sodium Chloride 0.9% 10 Ml Flush Syringe) 10 ml IV BID [facility] Last Admin: 10/01/20 09:47 Dose: 10 ml Documented by: Sodium Chloride (Sodium Chloride 0.9% 10 Ml Flush Syringe) 10 ml IV PRN PRN PRN Reason: LINE FLUSH Spironolactone (Spironolactone 25 Mg Tab) 25 mg PO QDAY [facility] Last Admin: 10/01/20 09:46 Dose: 25 mg Documented by: Mental Status Exam - Vital signs Last Vital Signs Temp 97.7 F 10/01/20 07:00 Pulse 77 10/01/20 10:00 Resp 25 H 10/01/20 10:00 BP 112/83 10/01/20 10:00 Pulse Ox 100 10/01/20 10:00 Results Result Diagrams: 10/01/20 02:15 10/01/20 02:15 Abnormal lab results 09/30/20 09/30/20 09/30/20 Range/Units 19:30 19:30 19:30 Hgb 8.9 L (10.1-14.3) gm/dl Hct 28.2 L (30.3-42.9) % MCV 72 L (79-97) fl MCH 23 L (28-32) pg RDW 21.3 H (13.2-15.2) % Seg Neuts % (Manual) 73.0 H (40.0-70.0) % Lymphocytes % (Manual) (13.4-35.0) % Lymphocytes # (Manual) (1.2-5.4) K/mm3 PT (12.2-14.9) Sec. INR (0.87-1.13) APTT 105.1 H* (24.2-36.6) Sec. Heparin Anti-Xa Level (0.3-0.7) U.I./ml Carbon Dioxide (22-30) mmol/L Glucose 123 H (65-100) mg/dL Calcium (8.4-10.2) mg/dL AST (5-40) units/L Total Creatine Kinase 200 H (30-135) units/L CK-MB (CK-2) 12.8 H (0.0-4.0) ng/mL CK-MB (CK-2) Rel Index 6.4 H (0-4) Troponin T 0.110 H* (0.00-0.029) ng/mL Albumin (3.9-5) g/dL Triglycerides 151 H (2-149) mg/dL HDL Cholesterol 73 H (40-59) mg/dL 10/01/20 10/01/20 10/01/20 Range/Units 00:12 00:12 00:12 Hgb 9.0 L (10.1-14.3) gm/dl Hct (30.3-42.9) % MCV (79-97) fl MCH (28-32) pg RDW (13.2-15.2) % Seg Neuts % (Manual) (40.0-70.0) % Lymphocytes % (Manual) (13.4-35.0) % Lymphocytes # (Manual) (1.2-5.4) K/mm3 PT 15.1 H (12.2-14.9) Sec. INR 1.14 H (0.87-1.13) APTT 189.0 H* (24.2-36.6) Sec. Heparin Anti-Xa Level (0.3-0.7) U.I./ml Carbon Dioxide (22-30) mmol/L Glucose (65-100) mg/dL Calcium (8.4-10.2) mg/dL AST (5-40) units/L Total Creatine Kinase 1351 H (30-135) units/L CK-MB (CK-2) 162.7 H (0.0-4.0) ng/mL CK-MB (CK-2) Rel Index 12.0 H (0-4) Troponin T 3.100 H* D (0.00-0.029) ng/mL Albumin (3.9-5) g/dL Triglycerides (2-149) mg/dL HDL Cholesterol (40-59) mg/dL 10/01/20 10/01/20 10/01/20 Range/Units 02:15 02:15 02:15 Hgb 8.6 L (10.1-14.3) gm/dl Hct 28.2 L (30.3-42.9) % MCV 71 L (79-97) fl MCH 22 L (28-32) pg RDW 20.5 H (13.2-15.2) % Seg Neuts % (Manual) 85.0 H (40.0-70.0) % Lymphocytes % (Manual) 12.0 L (13.4-35.0) % Lymphocytes # (Manual) 1.0 L (1.2-5.4) K/mm3 PT (12.2-14.9) Sec. INR (0.87-1.13) APTT (24.2-36.6) Sec. Heparin Anti-Xa Level (0.3-0.7) U.I./ml Carbon Dioxide 21 L (22-30) mmol/L Glucose 115 H (65-100) mg/dL Calcium 8.3 L (8.4-10.2) mg/dL AST 185 H (5-40) units/L Total Creatine Kinase 1510 H (30-135) units/L CK-MB (CK-2) 190.6 H (0.0-4.0) ng/mL CK-MB (CK-2) Rel Index 12.6 H (0-4) Troponin T 3.120 H* (0.00-0.029) ng/mL Albumin 3.6 L (3.9-5) g/dL Triglycerides (2-149) mg/dL HDL Cholesterol (40-59) mg/dL 10/01/20 Range/Units 02:15 Hgb (10.1-14.3) gm/dl Hct (30.3-42.9) % MCV (79-97) fl MCH (28-32) pg RDW (13.2-15.2) % Seg Neuts % (Manual) (40.0-70.0) % Lymphocytes % (Manual) (13.4-35.0) % Lymphocytes # (Manual) (1.2-5.4) K/mm3 PT (12.2-14.9) Sec. INR (0.87-1.13) APTT (24.2-36.6) Sec. Heparin Anti-Xa Level 1.35 H (0.3-0.7) U.I./ml Carbon Dioxide (22-30) mmol/L Glucose (65-100) mg/dL Calcium (8.4-10.2) mg/dL AST (5-40) units/L Total Creatine Kinase (30-135) units/L CK-MB (CK-2) (0.0-4.0) ng/mL CK-MB (CK-2) Rel Index (0-4) Troponin T (0.00-0.029) ng/mL Albumin (3.9-5) g/dL Triglycerides (2-149) mg/dL HDL Cholesterol (40-59) mg/dL All other labs normal.
--- NOTE | 2020-10-01 10:48 | Progress Note ---
Assessment and Plan Acute anterior NH s/p POBA and manual thrombectomy. ASA allergy Transient VT -on IV amiodarone Hx of NICMP 03/2020 LHC: normal coronaries, EF 25-30%. Chronic Anemia Poly-substance abuse Subjective Date of service: 10/01/20 Interval history: Patient denies chest pain. No hematoma of right groin cath site. Objective Vital Signs Temp Pulse Pulse Pulse Resp Resp BP 10/01/20 10:00 77 25 H 112/83 10/01/20 09:46 79 104/79 10/01/20 09:45 77 23 109/68 10/01/20 09:41 79 104/79 10/01/20 09:30 78 13 104/76 10/01/20 09:15 79 21 104/81 10/01/20 09:00 77 21 122/83 10/01/20 08:45 86 18 127/84 10/01/20 08:42 10/01/20 08:31 78 22 122/87 10/01/20 08:15 80 22 112/81 10/01/20 08:01 80 20 112/81 10/01/20 08:00 80 80 20 10/01/20 07:45 81 16 123/93 10/01/20 07:30 80 26 H 128/100 10/01/20 07:15 81 25 H 121/93 10/01/20 07:00 97.7 F 79 23 120/94 10/01/20 06:45 78 24 123/92 10/01/20 06:30 80 22 117/93 10/01/20 06:15 79 23 120/93 10/01/20 06:02 20 10/01/20 06:00 81 27 H 114/89 10/01/20 05:45 81 23 120/94 10/01/20 05:30 82 20 111/86 10/01/20 05:15 81 22 119/88 10/01/20 05:00 83 21 115/88 10/01/20 04:45 82 22 114/87 10/01/20 04:30 82 22 114/86 10/01/20 04:15 83 15 114/88 10/01/20 04:00 97.8 F 85 90 23 117/87 10/01/20 03:45 85 24 114/85 08/05/21 03:30 82 17 105/84 08/05/21 03:15 85 22 116/85 10/01/20 03:01 85 25 H 111/87 10/01/20 02:45 87 22 109/80 10/01/20 02:30 86 23 109/78 10/01/20 02:15 86 23 116/82 10/01/20 02:00 88 23 109/82 10/01/20 01:45 86 17 96/74 10/01/20 01:30 84 21 113/88 10/01/20 01:15 86 24 107/83 10/01/20 01:00 82 24 101/71 10/01/20 00:45 88 23 109/81 10/01/20 00:30 89 23 115/89 10/01/20 00:15 91 H 24 118/93 10/01/20 00:00 98.1 F 90 25 H 120/92 09/30/20 23:45 94 H 28 H 118/89 09/30/20 23:31 97 H 25 H 111/84 09/30/20 23:20 98 H 112/81 09/30/20 23:15 99 H 21 112/81 09/30/20 23:00 99 H 30 H 118/87 09/30/20 22:55 98 H 27 H 110/81 09/30/20 22:51 100 H 28 H 110/81 09/30/20 22:41 99 H 27 H 122/93 09/30/20 22:30 100 H 26 H 122/93 09/30/20 22:21 101 H 27 H 119/92 09/30/20 22:11 100 H 26 H 104/82 09/30/20 22:00 98 H 31 H 121/82 09/30/20 21:52 101 H 19 09/30/20 21:51 98 H 31 H 115/92 09/30/20 21:47 100 H 09/30/20 21:41 101 H 28 H 105/79 09/30/20 21:31 102 H 13 105/79 09/30/20 21:20 104/82 09/30/20 21:15 98.4 F 09/30/20 21:07 100 H 26 H 09/30/20 20:54 98.2 F 09/30/20 19:32 96 H 20 09/30/20 19:25 98 F 100 H 20 134/102 09/30/20 19:02 100 H BP Pulse Ox 10/01/20 10:00 100 10/01/20 09:46 10/01/20 09:45 10/01/20 09:41 10/01/20 09:30 100 10/01/20 09:15 100 10/01/20 09:00 100 10/01/20 08:45 100 10/01/20 08:42 98 10/01/20 08:31 100 10/01/20 08:15 10/01/20 08:01 94 10/01/20 08:00 94 10/01/20 07:45 100 10/01/20 07:30 98 10/01/20 07:15 98 10/01/20 07:00 97 10/01/20 06:45 94 10/01/20 06:30 94 10/01/20 06:15 99 10/01/20 06:02 10/01/20 06:00 100 10/01/20 05:45 98 10/01/20 05:30 98 10/01/20 05:15 99 10/01/20 05:00 10/01/20 04:45 99 10/01/20 04:30 99 10/01/20 04:15 93 10/01/20 04:00 94 10/01/20 03:45 95 10/01/20 03:30 100 10/01/20 03:15 99 10/01/20 03:01 99 10/01/20 02:45 100 10/01/20 02:30 100 10/01/20 02:15 10/01/20 02:00 99 10/01/20 01:45 100 10/01/20 01:30 99 10/01/20 01:15 98 10/01/20 01:00 97 10/01/20 00:45 96 10/01/20 00:30 100 10/01/20 00:15 97 10/01/20 00:00 92 09/30/20 23:45 90 09/30/20 23:31 09/30/20 23:20 09/30/20 23:15 98 09/30/20 23:00 99 09/30/20 22:55 99 09/30/20 22:51 98 09/30/20 22:41 98 09/30/20 22:30 99 09/30/20 22:21 98 09/30/20 22:11 100 09/30/20 22:00 100 09/30/20 21:52 09/30/20 21:51 100 09/30/20 21:47 09/30/20 21:41 09/30/20 21:31 09/30/20 21:20 09/30/20 21:15 09/30/20 21:07 100 09/30/20 20:54 09/30/20 19:32 138/103 100 09/30/20 19:25 100 09/30/20 19:02 - Physical Examination General: No Apparent Distress HEENT: Positive: PERRL Cardiac: Positive: Reg Rate and Rhythm Lungs: Positive: Decreased Breath Sounds Neuro: Positive: Grossly Intact Incision: Cardiac Cath Site (right groin) Extremities: Absent: edema - Labs and Meds Cardiac Enzymes 09/30/20 10/01/20 10/01/20 Range/Units 19:30 00:12 02:15 AST (5-40) units/L CK-MB (CK-2) 12.8 H 162.7 H 190.6 H (0.0-4.0) ng/mL 10/01/20 Range/Units 02:15 AST 185 H (5-40) units/L CK-MB (CK-2) (0.0-4.0) ng/mL Coagulation 09/30/20 10/01/20 Range/Units 19:30 00:12 PT 14.2 15.1 H (12.2-14.9) Sec. INR 1.05 1.14 H (0.87-1.13) APTT 105.1 H* 189.0 H* (24.2-36.6) Sec. Lipids 09/30/20 Range/Units 19:30 Triglycerides 151 H (2-149) mg/dL Cholesterol 177 (50-199) mg/dL HDL Cholesterol 73 H (40-59) mg/dL Cholesterol/HDL Ratio 2.42 % CBC 09/30/20 10/01/20 10/01/20 Range/Units 19:30 00:12 02:15 WBC 7.8 8.1 (4.5-11.0) K/mm3 RBC 3.93 3.97 (3.65-5.03) M/mm3 Hgb 8.9 L 9.0 L 8.6 L (10.1-14.3) gm/dl Hct 28.2 L 30.4 28.2 L (30.3-42.9) % Plt Count 356 311 (140-440) K/mm3 Comprehensive Metabolic Panel 09/30/20 10/01/20 Range/Units 19:30 02:15 Sodium 143 138 (137-145) mmol/L Potassium 4.2 4.1 (3.6-5.0) mmol/L Chloride 106.2 106.2 (98-107) mmol/L Carbon Dioxide 25 21 L (22-30) mmol/L BUN 15 17 (7-17) mg/dL Creatinine 1.0 0.8 (0.6-1.2) mg/dL Glucose 123 H 115 H (65-100) mg/dL Calcium 9.1 8.3 L (8.4-10.2) mg/dL AST 185 H (5-40) units/L ALT 29 (7-56) units/L Alkaline Phosphatase 98 (35-129) units/L Total Protein 6.4 (6.3-8.2) g/dL Albumin 3.6 L (3.9-5) g/dL
[2020-10-01] MEDS: AMIODARONE 900 MG in DEXTROSE 5% IN WATER 482 ML IV SCH (11:00)
--- NOTE | 2020-10-01 11:12 | Electrocardiograph Report ---
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
--- NOTE | 2020-10-01 11:13 | Electrocardiograph Report ---
[facility] Test Date: 2020-09-30 Test Time: 22:54:46 Pat Name: FELIPA STOUT Department: Room: A257 1 Gender: F Student Dean: : 1970 Requested By: LOREN KWOK Order Number: [id number] Reading MD: Hayley Palomo Measurements Intervals [place] Rate: 98 P: 46 NE: 130 QRS: -42 QRSD: 95 T: QT: 372 QTc: 477 Interpretive Statements Sinus rhythm Acute anterolateral wall ST elevation myocardial infarction in evolution Compared to ECG 09/30/2020 19:02:18 ST segment abnormalities are partially resolved Electronically Signed On 10-01-2020 11:13:09 EDT by Hayley Palomo
--- NOTE | 2020-10-01 11:17 | Electrocardiograph Report ---
[facility] Test Date: 2020-10-01 Test Time: 07:47:59 Pat Name: FELIPA STOUT Department: Room: A257 1 Gender: F Manager Progressive Care: SRAVAN : 1970 Requested By: LOREN KWOK Order Number: [id number] Reading MD: Hayley Palomo Measurements Intervals [place] Rate: 81 P: 97 NM: 130 QRS: -46 QRSD: 98 T: 59 QT: 476 QTc: 552 Interpretive Statements Sinus rhythm Anterolateral KS in evolution Compared to ECG 09/30/2020 22:54:46 No significant change Electronically Signed On 10-01-2020 11:17:49 EDT by Hayley Palomo
[2020-10-01] MEDS: risperiDONE 0.25 MG TAB PO SCH ×2 (12:41→21:27)
[2020-10-01] MEDS: METOPROLOL TARTRATE 50 MG TAB PO SCH ×2 (16:27→21:27)
[2020-10-01] MEDS: HYDROmorphone 1 MG/1 ML INJ IV PRN ×2 (16:30→21:25)
--- NOTE | 2020-10-01 17:46 | Event Note ---
Date: 10/01/20 Echocardiogram shows a severe dilated cardiomyopathy, ejection fraction 25%. Most significantly, there is a large mural thrombus in the distal septal wall and apex, with a broad base and mobile peduncle. The LV thrombus is the likely source of the patient's LAD thrombosis. We will continue full dose heparin, and begin warfarin therapy for long-term oral anticoagulation. When warfarin is therapeutic, we will discontinue Plavix and heparin. Patient has a recent history of anemia and suspected GI bleed 5 months ago, therefore warfarin therapy will have to be managed judiciously.
--- NOTE | 2020-10-01 18:02 | History and Physical Report ---
History of Present Illness Date of examination: 10/01/20 Date of admission: 09/30/20 20:43 History of present illness: 50 YO Female with Asthma, Nicotine Dependence, ETOH Dependence, Bipolar Disorder presents to ED for evaluation. Patient reports "my chest is hurting". Patient states that she has experienced a sudden onset of chest pain that began over the past 4 hours. Patient states that pain is 6/10, constant, radiates to the right arm, associated with diaphoresis, associated with shortness of breath. EMS was notified and upon arrival the patient was found to be in distress. An EKG revealed EKG changes. A code stroke was called and the patient was subsequently transported to [facility] for further care and evaluation of the aforementioned symptoms. The patient was seen and evaluated in the emergency department. All lab and imaging studies reviewed. Patient found to have ST elevation IN. Patient taken urgently to the cardiac [facility]. Cardiology team consulted. Patient denies fever, chills, palpitation, productive cough, skin rash, recent ill contacts, or known exposure to COVID-19. Prior admission on 04/12/2020 reviewed. All medication listed at time of admission has been reconciled. Past History Past Medical History: other (See HPI) Past Surgical History: Social history: single, smoking Family history: diabetes, hypertension Medications and Allergies Allergies Allergy/AdvReac Type Severity Reaction Status Date / Time aspirin Allergy Swelling Verified 04/12/20 14:57 Home Medications Medication Instructions Recorded Confirmed Last Taken Type Aspirin [Adult Aspirin] 81 mg PO DAILY #30 tablet. 04/16/20 Unknown Rx AtorvaSTATin [Lipitor] 40 mg PO QHS #30 tab 04/16/20 Unknown Rx Pantoprazole [Protonix TAB] 40 mg PO QDAC #30 tablet 04/16/20 Unknown Rx Spironolactone [Aldactone] 25 mg PO QDAY #30 tablet 04/16/20 Unknown Rx carvediloL [Coreg] 6.25 mg PO BID #60 tablet 04/16/20 Unknown Rx lisinopriL [Zestril TAB] 5 mg PO QDAY #30 tablet 04/16/20 Unknown Rx Cyclobenzaprine [Flexeril] 10 mg PO TID PRN #20 tablet 08/31/20 Unknown Rx HYDROcodone/APAP 5-325 [Etlan 1 each PO Q6HR PRN #10 tablet 08/31/20 Unknown Rx 5/325] Ibuprofen [Motrin 400 MG tab] 400 mg PO TID 5 Days #15 tablet 08/31/20 Unknown Rx Active Meds: Active Medications Acetaminophen (Acetaminophen 325 Mg Tab) 650 mg PO Q6H PRN PRN Reason: Pain MILD(1-3)/Fever >100.5/[place] Albuterol (Albuterol 2.5 Mg/3 Ml Nebu) 2.5 mg IH Q3HRT PRN PRN Reason: Shortness Of Breath Last Admin: 09/30/20 21:50 Dose: 2.5 mg Documented by: Atorvastatin Calcium (Atorvastatin 40 Mg Tab) 40 mg PO QHS [facility] Last Admin: 09/30/20 23:20 Dose: 40 mg Documented by: Clopidogrel Bisulfate (Clopidogrel 75 Mg Tab) 75 mg PO BID [facility] Cyclobenzaprine HCl (Cyclobenzaprine 10 Mg Tab) 10 mg PO TID PRN PRN Reason: Muscle Spasm Folic Acid (Folic Acid 1 Mg Tab) 1 mg PO QDAY [facility] Last Admin: 10/01/20 09:46 Dose: 1 mg Documented by: Heparin Sodium (Porcine) (Heparin 10,000 Units/10 Ml Vial) 2,100 unit 40 unit/kg (2100 unit) IV Q6H PRN PRN Reason: Anti-Xa Assay < 0.1 units/ml Hydromorphone HCl (Hydromorphone 1 Mg/1 Ml Inj) 0.5 mg IV Q12H PRN PRN Reason: Pain , Severe (7-10) Last Admin: 10/01/20 16:30 Dose: 0.5 mg Documented by: Heparin Sodium/Sodium Chloride (Heparin/ 0.45% Nacl-25,000 Unit/500 Ml) 25,000 unit in 500 mls @ 15 mls/hr IV TITRATE [facility]; Protocol Last Titration: 10/01/20 09:30 Dose: 900 units/hr, 18 mls/hr Documented by: Isosorbide Mononitrate (Isosorbide Mononitrate Er 30 Mg Tab) 30 mg PO QDAY [facility] Last Admin: 10/01/20 16:26 Dose: 30 mg Documented by: Lisinopril (Lisinopril 5 Mg Tab) 5 mg PO QDAY [facility] Last Admin: 10/01/20 09:41 Dose: 5 mg Documented by: Lorazepam (Lorazepam 2 Mg/Ml Vial) 2 mg IV Q1HR PRN PRN Reason: CIWA-Ar 8-15 Metoprolol Tartrate (Metoprolol Tartrate 50 Mg Tab) 50 mg PO BID [facility] Last Admin: 10/01/20 16:27 Dose: 50 mg Documented by: Oxycodone/Acetaminophen (Oxycodone /Acetaminophen 5-325mg Tab) 1 tab PO Q12H PRN PRN Reason: Pain, Moderate (4-6) Last Admin: 10/01/20 12:41 Dose: 1 tab Documented by: Pantoprazole Sodium (Pantoprazole 40 Mg Tab) 40 mg PO QDAC [facility] Last Admin: 10/01/20 09:45 Dose: 40 mg Documented by: Risperidone (Risperidone 0.25 Mg Tab) 0.25 mg PO BID [facility] Last Admin: 10/01/20 12:41 Dose: 0.25 mg Documented by: Sodium Chloride (Sodium Chloride 0.9% 10 Ml Flush Syringe) 10 ml IV BID [facility] Last Admin: 10/01/20 09:47 Dose: 10 ml Documented by: Sodium Chloride (Sodium Chloride 0.9% 10 Ml Flush Syringe) 10 ml IV PRN PRN PRN Reason: LINE FLUSH Spironolactone (Spironolactone 25 Mg Tab) 25 mg PO QDAY [facility] Last Admin: 10/01/20 09:46 Dose: 25 mg Documented by: Trazodone HCl (Trazodone 50 Mg Tab) 50 mg PO QHS [facility] Warfarin Sodium (Warfarin 5 Mg Tab) 5 mg PO DAILY@1700 [facility]; Protocol Exam - Constitutional Vitals: Temp Pulse Resp BP Pulse Ox 97.9 F 79 16 111/79 97 10/01/20 12:00 10/01/20 16:15 10/01/20 16:15 10/01/20 16:15 10/01/20 16:15 HEART Score - HEART Score EKG: Non-specific Age: 45-65 Risk factors: 1-2 risk factors Troponin: Troponin T 3.120 ng/mL (0.00-0.029) H* 10/01/20 02:15 Troponin: > 3x normal limit Results - Labs CBC & Chem 7: 10/01/20 02:15 10/01/20 02:15 Labs: Laboratory Last Values WBC 8.1 K/mm3 (4.5-11.0) 10/01/20 02:15 RBC 3.97 M/mm3 (3.65-5.03) 10/01/20 02:15 Hgb 8.6 gm/dl (10.1-14.3) L 10/01/20 02:15 Hct 28.2 % (30.3-42.9) L 10/01/20 02:15 MCV 71 fl (79-97) L 10/01/20 02:15 MCH 22 pg (28-32) L 10/01/20 02:15 MCHC 30 % (30-34) 10/01/20 02:15 RDW 20.5 % (13.2-15.2) H 10/01/20 02:15 Plt Count 311 K/mm3 (140-440) 10/01/20 02:15 Add Manual Diff Complete 10/01/20 02:15 Total Counted 100 10/01/20 02:15 Seg Neuts % (Manual) 85.0 % (40.0-70.0) H 10/01/20 02:15 Lymphocytes % (Manual) 12.0 % (13.4-35.0) L 10/01/20 02:15 Monocytes % (Manual) 3.0 % (0.0-7.3) 10/01/20 02:15 Eosinophils % (Manual) 3.0 % (0.0-4.3) 09/30/20 19:30 Nucleated RBC % Not Reportable 10/01/20 02:15 Seg Neutrophils # Man 6.9 K/mm3 (1.8-7.7) 10/01/20 02:15 Band Neutrophils # 0.0 K/mm3 10/01/20 02:15 Lymphocytes # (Manual) 1.0 K/mm3 (1.2-5.4) L 10/01/20 02:15 Abs React Lymphs (Man) 0.0 K/mm3 10/01/20 02:15 Monocytes # (Manual) 0.2 K/mm3 (0.0-0.8) 10/01/20 02:15 Eosinophils # (Manual) 0.0 K/mm3 (0.0-0.4) 10/01/20 02:15 Basophils # (Manual) 0.0 K/mm3 (0.0-0.1) 10/01/20 02:15 Metamyelocytes # 0.0 K/mm3 10/01/20 02:15 Myelocytes # 0.0 K/mm3 10/01/20 02:15 Promyelocytes # 0.0 K/mm3 10/01/20 02:15 Blast Cells # 0.0 K/mm3 10/01/20 02:15 WBC Morphology Not Reportable 10/01/20 02:15 Hypersegmented Neuts Not Reportable 10/01/20 02:15 Hyposegmented Neuts Not Reportable 10/01/20 02:15 Hypogranular Neuts Not Reportable 10/01/20 02:15 Smudge Cells Not Reportable 10/01/20 02:15 Toxic Granulation Not Reportable 10/01/20 02:15 Toxic Vacuolation Not Reportable 10/01/20 02:15 Dohle Bodies Not Reportable 10/01/20 02:15 Pelger-Huet Anomaly Not Reportable 10/01/20 02:15 Luz Maria Rods Not Reportable 10/01/20 02:15 Platelet Estimate Consistent w auto 10/01/20 02:15 Clumped Platelets Not Reportable 10/01/20 02:15 Plt Clumps, EDTA Not Reportable 10/01/20 02:15 Large Platelets Not Reportable 10/01/20 02:15 Giant Platelets Not Reportable 10/01/20 02:15 Platelet Satelliting Not Reportable 10/01/20 02:15 Plt Morphology Comment Not Reportable 10/01/20 02:15 RBC Morphology Not Reportable 10/01/20 02:15 Dimorphic RBCs Not Reportable 10/01/20 02:15 Polychromasia Not Reportable 10/01/20 02:15 Hypochromasia 2+ 10/01/20 02:15 Poikilocytosis 1+ 10/01/20 02:15 Anisocytosis 1+ 10/01/20 02:15 Microcytosis Not Reportable 10/01/20 02:15 Macrocytosis Not Reportable 10/01/20 02:15 Spherocytes Not Reportable 10/01/20 02:15 Pappenheimer Bodies Not Reportable 10/01/20 02:15 Sickle Cells Not Reportable 10/01/20 02:15 Target Cells Not Reportable 10/01/20 02:15 Tear Drop Cells Rare 10/01/20 02:15 Ovalocytes Few 10/01/20 02:15 Helmet Cells Not Reportable 10/01/20 02:15 [place] Bodies Not Reportable 10/01/20 02:15 [place] Rings Not Reportable 10/01/20 02:15 Marilee Cells Not Reportable 10/01/20 02:15 Bite Cells Not Reportable 10/01/20 02:15 Crenated Cell Not Reportable 10/01/20 02:15 Elliptocytes Few 10/01/20 02:15 Acanthocytes (Spur) Not Reportable 10/01/20 02:15 Rouleaux Not Reportable 10/01/20 02:15 Hemoglobin C Crystals Not Reportable 10/01/20 02:15 Schistocytes Rare 10/01/20 02:15 Malaria parasites Not Reportable 10/01/20 02:15 Mamadou Bodies Not Reportable 10/01/20 02:15 Hem Pathologist Commnt No 10/01/20 02:15 PT 15.1 Sec. (12.2-14.9) H 10/01/20 00:12 INR 1.14 (0.87-1.13) H 10/01/20 00:12 APTT 189.0 Sec. (24.2-36.6) H* 10/01/20 00:12 Heparin Anti-Xa Level 0.60 U.I./ml (0.3-0.7) 10/01/20 16:24 Sodium 138 mmol/L (137-145) 10/01/20 02:15 Potassium 4.1 mmol/L (3.6-5.0) 10/01/20 02:15 Chloride 106.2 mmol/L (98-107) 10/01/20 02:15 Carbon Dioxide 21 mmol/L (22-30) L 10/01/20 02:15 Anion Gap 15 mmol/L 10/01/20 02:15 BUN 17 mg/dL (7-17) 10/01/20 02:15 Creatinine 0.8 mg/dL (0.6-1.2) 10/01/20 02:15 Estimated GFR > 60 ml/min 10/01/20 02:15 BUN/Creatinine Ratio 21 % 10/01/20 02:15 Glucose 115 mg/dL (65-100) H 10/01/20 02:15 Calcium 8.3 mg/dL (8.4-10.2) L 10/01/20 02:15 Total Bilirubin 0.20 mg/dL (0.1-1.2) 10/01/20 02:15 AST 185 units/L (5-40) H 10/01/20 02:15 ALT 29 units/L (7-56) 10/01/20 02:15 Alkaline Phosphatase 98 units/L (35-129) 10/01/20 02:15 Total Creatine Kinase 1510 units/L (30-135) H 10/01/20 02:15 CK-MB (CK-2) 190.6 ng/mL (0.0-4.0) H 10/01/20 02:15 CK-MB (CK-2) Rel Index 12.6 (0-4) H 10/01/20 02:15 Troponin T 3.120 ng/mL (0.00-0.029) H* 10/01/20 02:15 Total Protein 6.4 g/dL (6.3-8.2) 10/01/20 02:15 Albumin 3.6 g/dL (3.9-5) L 10/01/20 02:15 Albumin/Globulin Ratio 1.3 % 10/01/20 02:15 Triglycerides 151 mg/dL (2-149) H 09/30/20 19:30 Cholesterol 177 mg/dL (50-199) 09/30/20 19:30 LDL Cholesterol Direct 89 mg/dL (50-130) 09/30/20 19:30 HDL Cholesterol 73 mg/dL (40-59) H 09/30/20 19:30 Cholesterol/HDL Ratio 2.42 % 09/30/20 19:30 Coronavirus (PCR) Negative (Negative) 10/01/20 08:09 Blood Type O POSITIVE 09/30/20 19:30 Antibody Screen Negative 09/30/20 19:30 Bethea/IV: Voiding Method Bedpan Assessment and Plan Assessment and plan: Assessment and Plan - Patient Problems (1) STEMI (ST elevation myocardial infarction) Current Visit: Yes Status: Acute Plan to address problem: EKG conducted and found to have EKG changes consistent with ST elevation IN. Cardiology team consulted. Patient taken urgently to [facility]. Patient admitted to IMCU postoperatively. Heparin drip, amiodarone drip. Further care as per cardiology team (2) Diastolic CHF Current Visit: Yes Status: Acute Qualifiers: Heart failure chronicity: acute Qualified Code(s): I50.31 - Acute diastolic (congestive) heart failure Plan to address problem: Strict I's and O, monitor urine output every shift, daily weight, afterload reduction, cardiology team consulted. (3) Nicotine dependence Current Visit: Yes Status: Acute Plan to address problem: Supportive care, smoking cessation counseling, behavior change counseling, +15 minutes. (4) Alcohol dependence Current Visit: Yes Status: Acute Plan to address problem: CIWA protocol: Thiamine, folic acid, multivitamin daily, supportive care. (5) Bipolar disorder Current Visit: Yes Status: Acute Plan to address problem: Mental health team consulted, (6) DVT prophylaxis Current Visit: No Status: Acute Plan to address problem: SCDs bilateral lower extremities while in bed, continue therapeutic anticoagulation VTE prophylaxis?: Chemical Plan of care discussed with patient/family: Yes
[2020-10-01] MEDS: CLOPIDOGREL 75 MG TAB PO SCH (21:27)
[2020-10-01] MEDS: traZODone 50 MG TAB PO SCH (21:33)
[2020-10-01] MEDS ORDERED: SODIUM CHLORIDE 0.9% 250ML 250 ML IV ONE (23:49)
[2020-10-02] MEDS: HYDROmorphone 1 MG/1 ML INJ IV PRN ×2 (04:28→17:46)
[2020-10-02 05:44] LABS: Hematocrit 24.9 % (30.3-42.9); Hemoglobin 7.5 gm/dl (10.1-14.3)
[2020-10-02 05:45] LABS: INR 0.97 (0.87-1.13)
[2020-10-02] MEDS: PANTOPRAZOLE 40 MG TAB PO SCH (07:08)
[2020-10-02] MEDS: HEPARIN/ 0.45% NACL DRIP 25,000 UNIT/500 ML BAG IV SCH (07:08)
--- NOTE | 2020-10-02 08:08 | Progress Note ---
Assessment and Plan Assessment and Plan - Patient Problems (1) STEMI (ST elevation myocardial infarction) Current Visit: Yes Status: Acute Plan to address problem: 50-year-old woman who presented during the night with chest pain and EKG consistent with an acute anterolateral wall ST elevation myocardial infarction. She was emergently taken to the cardiac catheterization lab where her angiogram showed a distal thrombotic occlusion of the LAD just after the apex. Her right and left coronary arteries were otherwise angiographically normal. She underwent export thrombectomy and some distal plain-old balloon angioplasty. She is currently in the ICU, looks and feels well, no further chest pain. She is in sinus rhythm and remains hemodynamically stable. 5 months ago, she was admitted to this hospital with a non-ST elevation my ocardial infarction. Her ECG at that time was deep inferolateral T wave ischemic changes. Cardiac catheterization then showed angiographically normal coronary arteries including widely patent LAD with no lesions and no thrombus. LV function assessment showed a left ventricular ejection fraction 25 to 30%. The working diagnosis at the time was a possible Takotsubo stress related non-ST elevation AR. She did not maintain optimal outpatient follow-up, and is unclear if she had a follow-up echocardiographic reassessment of left ventricular systolic function. Prior to the current event which appears consistent with transient thrombotic occlusion of the LAD, she denies any use of cocaine but does admit to chronic marijuana use. Recommendations: Patient is aspirin allergic, we will treat with Plavix 75 mg twice daily. Continue intravenous heparin for 48 hours post AR. Echocardiogram for left ventricular function assessment. Add beta-iain, long-acting nitrates, and GALI inhibitor. As outpatient, she will also benefit from a hematologic assessment for a prothrombotic disorder. (2) Diastolic CHF Current Visit: Yes Status: Acute Qualifiers: Heart failure chronicity: acute Qualified Code(s): I50.31 - Acute diastolic (congestive) heart failure Plan to address problem: Echocardiogram shows a severe dilated cardiomyopathy, ejection fraction 25%. Most significantly, there is a large mural thrombus in the distal septal wall and apex, with a broad base and mobile peduncle. The LV thrombus is the likely source of the patient's LAD thrombosis. We will continue full dose heparin, and begin warfarin therapy for long-term oral anticoagulation. When warfarin is therapeutic, we will discontinue Plavix and heparin. Patient has a recent history of anemia and suspected GI bleed 5 months ago, therefore warfarin therapy will have to be managed judiciously. (3) Nicotine dependence Current Visit: Yes Status: Acute Plan to address problem: Supportive care, smoking cessation counseling, behavior change counseling, +15 minutes. (4) Alcohol dependence Current Visit: Yes Status: Acute Plan to address problem: CIWA protocol: Thiamine, folic acid, multivitamin daily, supportive care. (5) Bipolar disorder Current Visit: Yes Status: Acute Plan to address problem: Mental health team consulted, (6) DVT prophylaxis Current Visit: No Status: Acute Plan to address problem: SCDs bilateral lower extremities while in bed, continue therapeutic anticoagulation Subjective Date of service: 10/01/20 Principal diagnosis: STEMI Interval history: 50 YO Female with Asthma, Nicotine Dependence, ETOH Dependence, Bipolar Disorder presents to ED for evaluation. Patient reports "my chest is hurting". Patient states that she has experienced a sudden onset of chest pain that began over the past 4 hours. Patient states that pain is 6/10, constant, radiates to the right arm, associated with diaphoresis, associated with shortness of breath. EMS was notified and upon arrival the patient was found to be in distress. An EKG revealed EKG changes. A code stroke was called and the patient was subsequently transported to [facility] for further care and evaluation of the aforementioned symptoms. The patient was seen and evaluated in the emergency department. All lab and imaging studies reviewed. Patient found to have ST elevation AR. Patient taken urgently to the cardiac [facility]. Cardiology team consulted. Patient denies fever, chills, palpitation, productive cough, skin rash, recent ill contacts, or known exposure to COVID-19. Prior admission on 04/12/2020 reviewed. All medication listed at time of admission has been reconciled. Objective - Constitutional Vitals: Vital Signs - 12hr 10/01/20 10/01/20 10/01/20 20:15 20:31 20:45 Temperature Pulse Rate 80 79 78 Pulse Rate [ From Monitor] Respiratory 16 28 H 24 Rate Blood Pressure 95/69 98/66 104/74 O2 Sat by Pulse 96 Oximetry 10/01/20 10/01/20 10/01/20 21:00 21:15 21:27 Temperature Pulse Rate 75 76 74 Pulse Rate [ From Monitor] Respiratory 27 H 24 Rate Blood Pressure 99/67 94/63 94/63 O2 Sat by Pulse 100 100 Oximetry 10/01/20 10/01/20 10/01/20 21:30 21:45 22:00 Temperature Pulse Rate 72 74 73 Pulse Rate [ From Monitor] Respiratory 22 14 22 Rate Blood Pressure 88/60 83/54 82/60 O2 Sat by Pulse 100 100 100 Oximetry 10/01/20 10/01/20 10/01/20 22:15 22:30 22:45 Temperature Pulse Rate 72 75 71 Pulse Rate [ From Monitor] Respiratory 28 H 15 21 Rate Blood Pressure 82/56 88/53 77/50 O2 Sat by Pulse 100 100 100 Oximetry 10/01/20 10/01/20 10/01/20 23:00 23:15 23:30 Temperature Pulse Rate 69 74 73 Pulse Rate [ From Monitor] Respiratory 18 19 25 H Rate Blood Pressure 84/54 82/51 84/55 O2 Sat by Pulse 100 100 100 Oximetry 10/01/20 10/01/20 10/02/20 23:42 23:45 00:00 Temperature 98.5 F Pulse Rate 56 L 70 Pulse Rate [ 70 From Monitor] Respiratory 17 21 Rate Blood Pressure 96/66 92/68 O2 Sat by Pulse 90 96 Oximetry 10/02/20 10/02/20 10/02/20 00:15 00:30 00:45 Temperature Pulse Rate 72 75 71 Pulse Rate [ From Monitor] Respiratory 19 14 17 Rate Blood Pressure 97/68 103/76 103/76 O2 Sat by Pulse Oximetry 10/02/20 10/02/20 10/02/20 01:00 01:15 01:30 Temperature Pulse Rate 70 72 73 Pulse Rate [ From Monitor] Respiratory 20 20 19 Rate Blood Pressure 86/58 89/55 86/57 O2 Sat by Pulse 100 100 Oximetry 10/02/20 10/02/20 10/02/20 01:45 02:00 02:15 Temperature Pulse Rate 74 75 76 Pulse Rate [ From Monitor] Respiratory 22 21 21 Rate Blood Pressure 85/62 81/59 100/71 O2 Sat by Pulse 99 100 Oximetry 10/02/20 10/02/20 10/02/20 02:30 02:45 03:00 Temperature Pulse Rate 81 82 79 Pulse Rate [ From Monitor] Respiratory 14 19 22 Rate Blood Pressure 105/76 95/65 94/64 O2 Sat by Pulse 100 97 Oximetry 10/02/20 10/02/20 10/02/20 03:15 03:19 03:30 Temperature 98.8 F Pulse Rate 78 81 Pulse Rate [ From Monitor] Respiratory 14 17 Rate Blood Pressure 88/59 87/59 O2 Sat by Pulse 100 100 Oximetry 10/02/20 10/02/20 10/02/20 03:45 04:00 04:01 Temperature Pulse Rate 79 80 86 Pulse Rate [ 86 From Monitor] Respiratory 19 28 H 28 H Rate Blood Pressure 91/56 91/56 O2 Sat by Pulse 100 98 Oximetry 10/02/20 10/02/20 10/02/20 04:15 04:30 04:45 Temperature Pulse Rate 77 84 78 Pulse Rate [ From Monitor] Respiratory 15 14 27 H Rate Blood Pressure 93/64 92/66 90/63 O2 Sat by Pulse 100 100 99 Oximetry 10/02/20 10/02/20 10/02/20 05:00 05:15 05:31 Temperature Pulse Rate 79 76 86 Pulse Rate [ From Monitor] Respiratory 24 12 21 Rate Blood Pressure 87/63 87/63 96/66 O2 Sat by Pulse 97 97 Oximetry 10/02/20 10/02/20 10/02/20 05:45 06:00 06:15 Temperature Pulse Rate 78 75 87 Pulse Rate [ From Monitor] Respiratory 19 18 16 Rate Blood Pressure 95/63 103/59 103/59 O2 Sat by Pulse 100 100 Oximetry 10/02/20 10/02/20 10/02/20 06:31 06:45 07:00 Temperature Pulse Rate 82 77 81 Pulse Rate [ From Monitor] Respiratory 25 H 15 17 Rate Blood Pressure 91/63 95/64 91/56 O2 Sat by Pulse 100 100 100 Oximetry 10/02/20 10/02/20 10/02/20 07:15 07:31 07:40 Temperature 98.9 F Pulse Rate 93 H 86 Pulse Rate [ From Monitor] Respiratory 18 20 Rate Blood Pressure 116/75 108/72 O2 Sat by Pulse 100 Oximetry 10/02/20 10/02/20 10/02/20 07:42 07:45 08:00 Temperature Pulse Rate 81 86 Pulse Rate [ From Monitor] Respiratory 14 17 Rate Blood Pressure 94/44 90/60 O2 Sat by Pulse 100 100 100 Oximetry General appearance: Present: no acute distress, well-nourished - EENT Eyes: PERRL, EOM intact ENT: hearing intact, clear oral mucosa Ears: bilateral: normal - Neck Neck: supple, normal ROM - Respiratory Respiratory effort: normal Respiratory: bilateral: CTA - Breasts Breasts: normal - Cardiovascular Heart rate: 78 Rhythm: regular Heart Sounds: Present: S1 & S2. Absent: gallop, rub Extremities: pulses intact, No edema, normal color, Full ROM - Gastrointestinal General gastrointestinal: Present: soft, non-tender, non-distended, normal bowel sounds - Genitourinary Female genitourinary: normal - Integumentary Integumentary: clear, warm, dry - Musculoskeletal Musculoskeletal: 1, strength equal bilaterally - Neurologic Neurologic: moves all extremities - Psychiatric Psychiatric: memory intact, appropriate mood/affect, intact judgment & insight - Labs CBC & Chem 7: 10/02/20 03:52 10/01/20 02:15 Labs: Abnormal lab results 10/02/20 Range/Units 03:52 Hgb 7.5 L (10.1-14.3) gm/dl Hct 24.9 L (30.3-42.9) % HEART Score - HEART Score EKG: Non-specific Age: 45-65 Risk factors: 1-2 risk factors Troponin: Troponin T 3.120 ng/mL (0.00-0.029) H* 10/01/20 02:15 Troponin: > 3x normal limit
--- NOTE | 2020-10-02 08:15 | Progress Note ---
Assessment and Plan Assessment and plan: COVID-19 negative --Acute anterior wall STEMI (ST elevation myocardial infarction) Current Visit: Yes Status: Acute Cardiology evaluated s/p emergent cardiac catheterization . angiogram showed a distal thrombotic occlusion of the LAD just after the apex. Right and left coronary arteries were otherwise angiographically normal. s/p export thrombectomy and some distal plain-old balloon angioplasty. Today patient feels slightly better, hemodynamically stable --LV thrombus on echocardiogram ; Current Visit: Yes Status: Acute Continue heparin drip, Coumadin Monitor INR, therapeutic goal 2-3 Supportive care --Acute systolic congestive heart failure ; EF 25% Current Visit: Yes Status: Acute Continue antifailure medications, heparin drip due to mural thrombus -- Nicotine dependence Current Visit: Yes Status: Acute Smoking cessation counseling, nicotine patch as needed --Alcohol dependence Current Visit: Yes Status: Acute CIWA protocol: Thiamine, folic acid, multivitamin daily, supportive care. Alcohol rehabilitation upon discharge --History of bipolar disorder Current Visit: Yes Status: Acute Continue current psych medications Follow psych evaluation and recommendations --DVT prophylaxis Current Visit: No Status: Acute Patient is on heparin drip and Coumadin for LV thrombus Monitor INR, when therapeutic goal is reached between 2 and 3, heparin will be discontinued We will closely monitor the patient and adjust management as needed Road Mixer Operator recommendations noted and appreciated History Interval history: I seen and examined the patient at the bedside Patient's chart and medications reviewed Patient feels slightly better, is on heparin drip Vital signs noted Patient denies any chest pain or shortness of breath Hospitalist Physical - Constitutional Vitals: Temp Pulse Resp BP Pulse Ox 98.9 F 86 17 90/60 100 10/02/20 07:40 10/02/20 08:00 10/02/20 08:00 10/02/20 08:00 10/02/20 08:00 General appearance: Present: no acute distress, well-nourished - EENT Eyes: Present: PERRL, EOM intact - Neck Neck: Present: supple, normal ROM - Respiratory Respiratory effort: normal Respiratory: bilateral: diminished, negative: rales, rhonchi, wheezing - Cardiovascular Rhythm: regular Heart Sounds: Present: S1 & S2 - Extremities Extremities: no ischemia, pulses intact - Abdominal General gastrointestinal: soft, non-tender, non-distended, normal bowel sounds - Integumentary Integumentary: Present: clear, warm - Psychiatric Psychiatric: appropriate mood/affect, cooperative - Neurologic Neurologic: CNII-XII intact, moves all extremities HEART Score - HEART Score EKG: Non-specific Age: 45-65 Risk factors: 1-2 risk factors Troponin: Troponin T 3.120 ng/mL (0.00-0.029) H* 10/01/20 02:15 Troponin: > 3x normal limit Results - Labs CBC & Chem 7: 10/04/20 05:11 10/03/20 05:01 Labs: Laboratory Last Values WBC 8.1 K/mm3 (4.5-11.0) 10/01/20 02:15 RBC 3.97 M/mm3 (3.65-5.03) 10/01/20 02:15 Hgb 7.5 gm/dl (10.1-14.3) L 10/02/20 03:52 Hct 24.9 % (30.3-42.9) L 10/02/20 03:52 MCV 71 fl (79-97) L 10/01/20 02:15 MCH 22 pg (28-32) L 10/01/20 02:15 MCHC 30 % (30-34) 10/01/20 02:15 RDW 20.5 % (13.2-15.2) H 10/01/20 02:15 Plt Count 311 K/mm3 (140-440) 10/01/20 02:15 Add Manual Diff Complete 10/01/20 02:15 Total Counted 100 10/01/20 02:15 Seg Neuts % (Manual) 85.0 % (40.0-70.0) H 10/01/20 02:15 Lymphocytes % (Manual) 12.0 % (13.4-35.0) L 10/01/20 02:15 Monocytes % (Manual) 3.0 % (0.0-7.3) 10/01/20 02:15 Eosinophils % (Manual) 3.0 % (0.0-4.3) 09/30/20 19:30 Nucleated RBC % Not Reportable 10/01/20 02:15 Seg Neutrophils # Man 6.9 K/mm3 (1.8-7.7) 10/01/20 02:15 Band Neutrophils # 0.0 K/mm3 10/01/20 02:15 Lymphocytes # (Manual) 1.0 K/mm3 (1.2-5.4) L 10/01/20 02:15 Abs React Lymphs (Man) 0.0 K/mm3 10/01/20 02:15 Monocytes # (Manual) 0.2 K/mm3 (0.0-0.8) 10/01/20 02:15 Eosinophils # (Manual) 0.0 K/mm3 (0.0-0.4) 10/01/20 02:15 Basophils # (Manual) 0.0 K/mm3 (0.0-0.1) 10/01/20 02:15 Metamyelocytes # 0.0 K/mm3 10/01/20 02:15 Myelocytes # 0.0 K/mm3 10/01/20 02:15 Promyelocytes # 0.0 K/mm3 10/01/20 02:15 Blast Cells # 0.0 K/mm3 10/01/20 02:15 WBC Morphology Not Reportable 10/01/20 02:15 Hypersegmented Neuts Not Reportable 10/01/20 02:15 Hyposegmented Neuts Not Reportable 10/01/20 02:15 Hypogranular Neuts Not Reportable 10/01/20 02:15 Smudge Cells Not Reportable 10/01/20 02:15 Toxic Granulation Not Reportable 10/01/20 02:15 Toxic Vacuolation Not Reportable 10/01/20 02:15 Dohle Bodies Not Reportable 10/01/20 02:15 Pelger-Huet Anomaly Not Reportable 10/01/20 02:15 Luz Maria Rods Not Reportable 10/01/20 02:15 Platelet Estimate Consistent w auto 10/01/20 02:15 Clumped Platelets Not Reportable 10/01/20 02:15 Plt Clumps, EDTA Not Reportable 10/01/20 02:15 Large Platelets Not Reportable 10/01/20 02:15 Giant Platelets Not Reportable 10/01/20 02:15 Platelet Satelliting Not Reportable 10/01/20 02:15 Plt Morphology Comment Not Reportable 10/01/20 02:15 RBC Morphology Not Reportable 10/01/20 02:15 Dimorphic RBCs Not Reportable 10/01/20 02:15 Polychromasia Not Reportable 10/01/20 02:15 Hypochromasia 2+ 10/01/20 02:15 Poikilocytosis 1+ 10/01/20 02:15 Anisocytosis 1+ 10/01/20 02:15 Microcytosis Not Reportable 10/01/20 02:15 Macrocytosis Not Reportable 10/01/20 02:15 Spherocytes Not Reportable 10/01/20 02:15 Pappenheimer Bodies Not Reportable 10/01/20 02:15 Sickle Cells Not Reportable 10/01/20 02:15 Target Cells Not Reportable 10/01/20 02:15 Tear Drop Cells Rare 10/01/20 02:15 Ovalocytes Few 10/01/20 02:15 Helmet Cells Not Reportable 10/01/20 02:15 [place] Bodies Not Reportable 10/01/20 02:15 [place] Rings Not Reportable 10/01/20 02:15 [place] Cells Not Reportable 10/01/20 02:15 Bite Cells Not Reportable 10/01/20 02:15 Crenated Cell Not Reportable 10/01/20 02:15 Elliptocytes Few 10/01/20 02:15 Acanthocytes (Spur) Not Reportable 10/01/20 02:15 Rouleaux Not Reportable 10/01/20 02:15 Hemoglobin C Crystals Not Reportable 10/01/20 02:15 Schistocytes Rare 10/01/20 02:15 Malaria parasites Not Reportable 10/01/20 02:15 [place] Bodies Not Reportable 10/01/20 02:15 Hem Pathologist Commnt No 10/01/20 02:15 PT 13.4 Sec. (12.2-14.9) 10/02/20 03:52 INR 0.97 (0.87-1.13) 10/02/20 03:52 APTT 189.0 Sec. (24.2-36.6) H* 10/01/20 00:12 Heparin Anti-Xa Level 0.60 U.I./ml (0.3-0.7) 10/01/20 16:24 Sodium 138 mmol/L (137-145) 10/01/20 02:15 Potassium 4.1 mmol/L (3.6-5.0) 10/01/20 02:15 Chloride 106.2 mmol/L (98-107) 10/01/20 02:15 Carbon Dioxide 21 mmol/L (22-30) L 10/01/20 02:15 Anion Gap 15 mmol/L 10/01/20 02:15 BUN 17 mg/dL (7-17) 10/01/20 02:15 Creatinine 0.8 mg/dL (0.6-1.2) 10/01/20 02:15 Estimated GFR > 60 ml/min 10/01/20 02:15 BUN/Creatinine Ratio 21 % 10/01/20 02:15 Glucose 115 mg/dL (65-100) H 10/01/20 02:15 Calcium 8.3 mg/dL (8.4-10.2) L 10/01/20 02:15 Total Bilirubin 0.20 mg/dL (0.1-1.2) 10/01/20 02:15 AST 185 units/L (5-40) H 10/01/20 02:15 ALT 29 units/L (7-56) 10/01/20 02:15 Alkaline Phosphatase 98 units/L (35-129) 10/01/20 02:15 Total Creatine Kinase 1510 units/L (30-135) H 10/01/20 02:15 CK-MB (CK-2) 190.6 ng/mL (0.0-4.0) H 10/01/20 02:15 CK-MB (CK-2) Rel Index 12.6 (0-4) H 10/01/20 02:15 Troponin T 3.120 ng/mL (0.00-0.029) H* 10/01/20 02:15 Total Protein 6.4 g/dL (6.3-8.2) 10/01/20 02:15 Albumin 3.6 g/dL (3.9-5) L 10/01/20 02:15 Albumin/Globulin Ratio 1.3 % 10/01/20 02:15 Triglycerides 151 mg/dL (2-149) H 09/30/20 19:30 Cholesterol 177 mg/dL (50-199) 09/30/20 19:30 LDL Cholesterol Direct 89 mg/dL (50-130) 09/30/20 19:30 HDL Cholesterol 73 mg/dL (40-59) H 09/30/20 19:30 Cholesterol/HDL Ratio 2.42 % 09/30/20 19:30 Coronavirus (PCR) Negative (Negative) 10/01/20 08:09 Blood Type O POSITIVE 09/30/20 19:30 Antibody Screen Negative 09/30/20 19:30 Bethea/IV: Voiding Method Bedpan Active Medications - Current Medications Current Medications: Generic Name Dose Route Start Last Admin Trade Name Freq PRN Reason Stop Dose Admin Acetaminophen 650 mg 09/30/20 20:43 Acetaminophen 325 Mg Tab PO Q6H PRN Pain MILD(1-3)/Fever >100.5/[place] Albuterol 2.5 mg 09/30/20 20:43 09/30/20 21:50 Albuterol 2.5 Mg/3 Ml Nebu IH 2.5 mg Q3HRT PRN Administration Shortness Of Breath Atorvastatin Calcium 40 mg 09/30/20 22:00 10/01/20 21:27 Atorvastatin 40 Mg Tab PO 40 mg QHS GANESH Administration Clopidogrel Bisulfate 75 mg 10/01/20 22:00 10/01/20 21:27 Clopidogrel 75 Mg Tab PO 75 mg BID GANESH Administration Cyclobenzaprine HCl 10 mg 09/30/20 20:45 10/02/20 04:29 Cyclobenzaprine 10 Mg Tab PO 10 mg TID PRN Administration Muscle Spasm Folic Acid 1 mg 10/01/20 10:00 10/01/20 09:46 Folic Acid 1 Mg Tab PO 1 mg QDAY GANESH Administration Heparin Sodium (Porcine) 2,100 unit 09/30/20 20:55 Heparin 10,000 Units/10 Ml Vial 40 unit/kg (2100 unit) IV Q6H PRN Anti-Xa Assay < 0.1 units/ml Hydromorphone HCl 0.5 mg 09/30/20 20:43 10/02/20 04:28 Hydromorphone 1 Mg/1 Ml Inj IV 0.5 mg Q12H PRN Administration Pain , Severe (7-10) Heparin Sodium/Sodium Chloride 25,000 unit in 500 mls @ 15 mls/hr 09/30/20 20:00 10/02/20 07:08 Heparin/ 0.45% Nacl-25,000 Unit/500 Ml IV 900 units/hr TITRATE GANESH 18 mls/hr Administration Protocol 750 UNITS/HR Isosorbide Mononitrate 30 mg 10/01/20 15:00 10/01/20 16:26 Isosorbide Mononitrate Er 30 Mg Tab PO 30 mg QDAY GANESH Administration Lisinopril 5 mg 10/01/20 10:00 10/01/20 09:41 Lisinopril 5 Mg Tab PO 5 mg QDAY GANESH Administration Lorazepam 2 mg 09/30/20 20:54 Lorazepam 2 Mg/Ml Vial IV Q1HR PRN CIWA-Ar 8-15 Metoprolol Tartrate 50 mg 10/01/20 15:00 10/01/20 21:27 Metoprolol Tartrate 50 Mg Tab PO 50 mg BID GANESH Administration Oxycodone/Acetaminophen 1 tab 09/30/20 20:43 10/01/20 12:41 Oxycodone /Acetaminophen 5-325mg Tab PO 1 tab Q12H PRN Administration Pain, Moderate (4-6) Pantoprazole Sodium 40 mg 10/01/20 07:30 10/02/20 07:08 Pantoprazole 40 Mg Tab PO 40 mg QDAC GANESH Administration Risperidone 0.25 mg 10/01/20 11:00 10/01/20 21:27 Risperidone 0.25 Mg Tab PO 0.25 mg BID GANESH Administration Sodium Chloride 10 ml 09/30/20 22:00 10/01/20 21:29 Sodium Chloride 0.9% 10 Ml Flush Syringe IV 10 ml BID GANESH Administration Sodium Chloride 10 ml 09/30/20 20:43 Sodium Chloride 0.9% 10 Ml Flush Syringe IV PRN PRN LINE FLUSH Spironolactone 25 mg 10/01/20 10:00 10/01/20 09:46 Spironolactone 25 Mg Tab PO 25 mg QDAY GANESH Administration Trazodone HCl 50 mg 10/01/20 22:00 10/01/20 21:33 Trazodone 50 Mg Tab PO 50 mg QHS GANESH Administration Warfarin Sodium 5 mg 10/01/20 18:30 Warfarin 5 Mg Tab PO DAILY@1700 [facility] Protocol
--- NOTE | 2020-10-02 09:26 | Progress Note ---
Assessment and Plan Acute anterior CT s/p POBA and manual thrombectomy of a distal thrombotic occlusion of the LAD just after the apex. ASA allergy Transient VT -on IV amiodarone Hx of NICMP 03/2020 LHC: normal coronaries, EF 25-30%. Chronic Anemia Poly-substance abuse Echocardiogram shows a severe dilated cardiomyopathy, ejection fraction 25%. Most significantly, there is a large mural thrombus in the distal septal wall and apex, with a broad base and mobile peduncle. The LV thrombus is the likely source of the patient's LAD thrombosis. Recommendations: We will continue IV heparin and begin warfarin therapy for long-term oral anticoagulation. When warfarin is therapeutic, we will discontinue Plavix and heparin. Patient has a recent history of anemia and suspected GI bleed 5 months ago, therefore warfarin therapy will have to be managed judiciously. Subjective Date of service: 10/02/20 Principal diagnosis: STEMI Interval history: Patient denies chest pain. Blood pressure is borderline low. Patient did not receive her 1st dose of Warfarin as order on 10/01 for unclear reasons. HCT today is 24.9. Objective Vital Signs Temp Pulse Pulse Resp BP Pulse Ox 10/02/20 08:00 86 86 17 90/60 100 10/02/20 07:45 81 14 94/44 100 10/02/20 07:42 100 10/02/20 07:40 98.9 F 10/02/20 07:31 86 20 108/72 100 10/02/20 07:15 93 H 18 116/75 10/02/20 07:00 81 17 91/56 100 10/02/20 06:45 77 15 95/64 100 10/02/20 06:31 82 25 H 91/63 100 10/02/20 06:15 87 16 103/59 100 10/02/20 06:00 75 18 103/59 100 10/02/20 05:45 78 19 95/63 10/02/20 05:31 86 21 96/66 10/02/20 05:15 76 12 87/63 97 10/02/20 05:00 79 24 87/63 97 10/02/20 04:45 78 27 H 90/63 99 10/02/20 04:30 84 14 92/66 100 10/02/20 04:15 77 15 93/64 100 10/02/20 04:01 86 28 H 91/56 10/02/20 04:00 80 86 28 H 98 10/02/20 03:45 79 19 91/56 100 10/02/20 03:30 81 17 87/59 100 10/02/20 03:19 98.8 F 10/02/20 03:15 78 14 88/59 100 10/02/20 03:00 79 22 94/64 97 10/02/20 02:45 82 19 95/65 100 10/02/20 02:30 81 14 105/76 10/02/20 02:15 76 21 100/71 10/02/20 02:00 75 21 81/59 100 10/02/20 01:45 74 22 85/62 99 10/02/20 01:30 73 19 86/57 100 10/02/20 01:15 72 20 89/55 10/02/20 01:00 70 20 86/58 100 10/02/20 00:45 71 17 103/76 10/02/20 00:30 75 14 103/76 10/02/20 00:15 72 19 97/68 10/02/20 00:00 70 70 21 92/68 96 10/01/20 23:45 56 L 17 96/66 90 10/01/20 23:42 98.5 F 10/01/20 23:30 73 25 H 84/55 100 10/01/20 23:15 74 19 82/51 100 10/01/20 23:00 69 18 84/54 100 10/01/20 22:45 71 21 77/50 100 10/01/20 22:30 75 15 88/53 100 10/01/20 22:15 72 28 H 82/56 100 10/01/20 22:00 73 22 82/60 100 10/01/20 21:45 74 14 83/54 100 10/01/20 21:30 72 22 88/60 100 10/01/20 21:27 74 94/63 10/01/20 21:15 76 24 94/63 100 10/01/20 21:00 75 27 H 99/67 100 10/01/20 20:45 78 24 104/74 10/01/20 20:31 79 28 H 98/66 96 10/01/20 20:15 80 16 95/69 10/01/20 20:00 78 78 22 78/60 100 10/01/20 19:49 98.2 F 10/01/20 19:45 78 23 86/67 10/01/20 19:31 82 23 105/68 10/01/20 19:15 78 26 H 96/69 10/01/20 19:00 76 17 106/70 10/01/20 18:45 78 21 100/71 100 10/01/20 18:30 72 22 101/72 100 10/01/20 18:15 75 22 106/66 100 10/01/20 16:15 79 16 111/79 97 10/01/20 16:01 82 19 122/92 10/01/20 16:00 84 84 19 96 10/01/20 15:45 83 18 112/87 73 L 10/01/20 15:30 78 12 117/87 100 10/01/20 15:15 78 17 110/86 100 10/01/20 15:00 78 19 113/85 99 10/01/20 14:45 77 19 115/86 10/01/20 14:30 75 19 115/84 100 10/01/20 14:15 77 23 116/84 100 10/01/20 14:00 75 24 120/92 99 10/01/20 13:45 82 30 H 149/109 93 10/01/20 13:30 74 18 129/93 100 10/01/20 13:15 74 21 126/93 100 10/01/20 13:01 73 22 120/92 10/01/20 12:45 71 16 97/73 10/01/20 12:30 74 17 98/69 10/01/20 12:15 74 22 101/79 10/01/20 12:00 97.9 F 76 19 97/76 10/01/20 11:45 76 11 L 110/82 92 10/01/20 11:30 79 13 110/82 10/01/20 11:15 78 19 124/95 10/01/20 11:00 78 24 124/95 100 10/01/20 10:45 75 23 115/91 98 10/01/20 10:30 75 23 114/86 98 10/01/20 10:15 76 25 H 107/82 100 10/01/20 10:00 77 25 H 112/83 100 10/01/20 09:46 79 104/79 10/01/20 09:45 77 23 109/68 10/01/20 09:41 79 104/79 10/01/20 09:30 78 13 104/76 100 - Physical Examination General: No Apparent Distress HEENT: Positive: PERRL Neck: Positive: trachea midline Cardiac: Positive: Reg Rate and Rhythm Lungs: Positive: Decreased Breath Sounds Neuro: Positive: Grossly Intact Incision: Cardiac Cath Site (right groin) Extremities: Absent: edema - Labs and Meds Coagulation 10/02/20 Range/Units 03:52 PT 13.4 (12.2-14.9) Sec. INR 0.97 (0.87-1.13) CBC 10/02/20 Range/Units 03:52 Hgb 7.5 L (10.1-14.3) gm/dl Hct 24.9 L (30.3-42.9) %
[2020-10-02] MEDS: FOLIC ACID 1 MG TAB PO SCH (09:31)
[2020-10-02] MEDS: CLOPIDOGREL 75 MG TAB PO SCH (09:32)
[2020-10-02] MEDS: SPIRONOLACTONE 25 MG TAB PO SCH ×2 (09:32→10:00)
[2020-10-02] MEDS: LISINOPRIL 5 MG TAB PO SCH ×2 (09:32→10:10)
[2020-10-02] MEDS: METOPROLOL TARTRATE 50 MG TAB PO SCH ×3 (09:32→21:27)
[2020-10-02] MEDS: risperiDONE 0.25 MG TAB PO SCH ×2 (09:33→21:27)
[2020-10-02] MEDS: AMIODARONE 200 MG TAB PO SCH ×2 (11:23→21:27)
--- NOTE | 2020-10-02 14:11 | Progress Note ---
Subjective - Reason for Consult Consult date: 10/02/20 Reason for consult: Bipolar - Chief Complaint Chief complaint: The patient was seen resting in bed, she reports doing well. She reports having anxiety due to her pain. She states sleep as fair and appetite as good. The patient denies any current suicidal thoughts and denies hallucinations. REVIEW OF SYSTEMS Constitutional: Negative for weight loss ENT: Negative for stridor Respiratory: Negative for cough or hemoptysis All other systems reviewed and are negative MENTAL STATUS EXAMINATION General Appearance and Behavior: Age appropriate, good hygiene, wearing appropriate clothes, calm, cooperative, good eye contact Cooperation: Participating, guarded Psychomotor Behavior: normal Mood: "okay" Affect and affective range: congruent with stated mood Thought Process: goal oriented Thought Content: Not suicidal Speech: Normal volume, Regular rate and rhythm, Suicidal Ideation: Denies Homicidal Ideation: Denies Hallucinations: Denies Delusions: None elicited Impulse Control: Normal Insight and Judgment: Normal insight and judgment Memory: Normal Attention: Limited Orientation: Alert, oriented Assessment and Plan (1) Hx of Bipolar Treatment Plan Will restart previous meds the patient states worked for her. She is to reestablish outpatient psychiatry upon discharge Continue medications Risperidone 0.25mg po BID Trazodone 50mg po qhs Medical: Per primary Sitter: Defer to primary Disposition: Do not recommend acute psychiatric inpatient treatment. The lockstitch coat joiner to give the patient all necessary resources Will sign off. Case staffed with Dr. Austin. Mental Status Exam - Vital signs Last Vital Signs Temp 98.4 F 10/02/20 11:00 Pulse 87 10/02/20 12:45 Resp 21 10/02/20 12:45 BP 96/63 10/02/20 12:45 Pulse Ox 100 10/02/20 12:45
[2020-10-02] MEDS: WARFARIN 5 MG TAB PO SCH (17:09)
[2020-10-02] MEDS: traZODone 50 MG TAB PO SCH (21:27)
[2020-10-02] MEDS: oxyCODONE /ACETAMINOPHEN 5-325MG TAB PO PRN (21:30)
[2020-10-03 06:33] LABS: Basophils % (Auto) 0.8 % (0.0-1.8); Eosinophils # (Auto) 0.1 K/mm3 (0.0-0.4); Eosinophils % (Auto) 1.6 % (0.0-4.3); Hematocrit 25.1 % (30.3-42.9); Hemoglobin 7.5 gm/dl (10.1-14.3); Lymphocytes # (Auto) 1.7 K/mm3 (1.2-5.4); Lymphocytes % (Auto) 27.7 % (13.4-35.0); Mean Corpuscular HGB Conc 30 % (30-34); Mean Corpuscular Volume 72 fl (79-97); Monocytes # (Auto) 0.4 K/mm3 (0.0-0.8); Monocytes % (Auto) 6.2 % (0.0-7.3); Platelet Count 295 K/mm3 (140-440); Red Blood Count 3.49 M/mm3 (3.65-5.03)
[2020-10-03 06:39] LABS: Alanine Aminotransferase 192 units/L (7-56); Blood Urea Nitrogen 13 mg/dL (7-17); Calcium 7.8 mg/dL (8.4-10.2); Hemolysis Index 0
[2020-10-03 06:42] LABS: INR 0.95 (0.87-1.13); Red Cell Distribution Width 20.8 % (13.2-15.2)
[2020-10-03 06:45] LABS: BUN/Creatinine Ratio 19
[2020-10-03] MEDS: PANTOPRAZOLE 40 MG TAB PO SCH (07:33)
[2020-10-03] MEDS: HYDROmorphone 1 MG/1 ML INJ IV PRN (07:52)
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
[2020-10-03] MEDS: SPIRONOLACTONE 25 MG TAB PO SCH (09:56)
[2020-10-03] MEDS: FOLIC ACID 1 MG TAB PO SCH (09:56)
[2020-10-03] MEDS: LISINOPRIL 5 MG TAB PO SCH (09:57)
[2020-10-03] MEDS: CLOPIDOGREL 75 MG TAB PO SCH (09:57)
[2020-10-03] MEDS: AMIODARONE 200 MG TAB PO SCH ×2 (09:58→23:57)
[2020-10-03] MEDS: risperiDONE 0.25 MG TAB PO SCH ×2 (09:58→23:58)
[2020-10-03] MEDS: METOPROLOL TARTRATE 50 MG TAB PO SCH ×2 (09:59→23:57)
[2020-10-03] MEDS: HEPARIN/ 0.45% NACL DRIP 25,000 UNIT/500 ML BAG IV SCH ×2 (15:04→17:24)
--- NOTE | 2020-10-03 15:11 | Progress Note ---
Assessment and Plan - Patient Problems (1) STEMI (ST elevation myocardial infarction) Current Visit: Yes Status: Acute Plan to address problem: Patient suffered an acute ST elevation myocardial infarction, caused by LAD thrombus. Status post balloon angioplasty of the distal LAD occlusion, currently on intravenous heparin and oral Plavix. (2) Dilated cardiomyopathy Current Visit: Yes Status: Acute Plan to address problem: Patient has a severe dilated nonischemic cardiomyopathy, will be placed on optimal guideline directed medical therapy. (3) Left ventricular apical thrombus Current Visit: Yes Status: Acute Plan to address problem: Intravenous heparin will be transition to oral Coumadin for long-term oral anticoagulation. I would recommend GI consultation to assist in management of the patient's anemia which may complicate her tolerance of the necessary chronic oral anticoagulation. Subjective Date of service: 10/03/20 Principal diagnosis: STEMI Interval history: Patient is comfortable, no acute distress, remains on intravenous heparin. Hematocrit ranges between 25 and 28. Objective Vital Signs Temp Pulse Pulse Resp BP Pulse Ox 10/03/20 14:42 79 10/03/20 12:01 76 19 118/75 100 10/03/20 12:00 78 76 19 100 10/03/20 11:48 98.2 F 10/03/20 11:45 79 20 134/97 100 10/03/20 11:30 84 17 134/97 100 10/03/20 11:15 86 19 134/95 100 10/03/20 11:00 83 18 133/88 100 10/03/20 10:45 78 23 128/90 100 10/03/20 10:31 77 26 H 113/85 100 10/03/20 10:15 82 26 H 127/92 100 10/03/20 10:00 87 14 124/91 100 10/03/20 09:59 86 137/100 10/03/20 09:58 85 137/100 10/03/20 09:57 86 137/100 10/03/20 09:56 85 137/100 10/03/20 09:45 82 28 H 137/100 100 10/03/20 09:31 88 28 H 158/124 94 10/03/20 09:15 78 18 116/79 100 10/03/20 09:01 82 25 H 116/79 97 10/03/20 08:45 82 23 144/102 98 10/03/20 08:31 83 24 138/106 100 10/03/20 08:15 89 25 H 136/101 99 10/03/20 08:01 88 22 133/98 99 10/03/20 08:00 98.5 F 89 88 22 99 10/03/20 07:45 82 19 121/88 100 10/03/20 07:37 100 10/03/20 07:30 81 20 121/88 100 10/03/20 07:25 98.7 F 10/03/20 07:15 84 20 130/93 100 10/03/20 07:00 89 28 H 132/107 100 10/03/20 06:45 76 22 117/90 100 10/03/20 06:30 76 18 117/90 100 10/03/20 06:15 78 20 125/90 100 10/03/20 06:00 76 20 108/80 100 10/03/20 05:45 77 17 123/90 100 10/03/20 05:31 73 21 109/82 100 10/03/20 05:15 77 20 117/86 100 10/03/20 05:00 72 16 132/98 100 10/03/20 04:45 72 24 120/86 100 10/03/20 04:30 70 23 116/88 98 10/03/20 04:15 75 19 108/80 100 10/03/20 04:01 75 20 108/80 100 10/03/20 04:00 75 20 100 10/03/20 03:45 64 18 128/101 100 10/03/20 03:30 66 17 123/94 90 10/03/20 03:15 66 20 130/74 10/03/20 03:00 64 23 120/81 99 10/03/20 02:51 98.4 F 10/03/20 02:45 65 19 121/86 100 10/03/20 02:30 65 20 124/90 100 10/03/20 02:15 70 18 120/88 100 10/03/20 02:00 73 20 128/86 100 10/03/20 01:45 74 17 145/94 07 01:30 77 17 145/94 99 10/03/20 01:15 78 15 139/104 100 10/03/20 01:00 78 22 143/105 100 10/03/20 00:45 77 21 127/85 100 10/03/20 00:30 80 18 130/92 100 10/03/20 00:15 81 18 131/94 100 10/03/20 00:00 77 77 20 131/93 100 10/02/20 23:45 73 21 115/82 99 10/02/20 23:44 98.9 F 10/02/20 23:30 77 26 H 115/87 99 10/02/20 23:15 84 21 114/81 97 10/02/20 23:00 86 19 121/89 98 10/02/20 22:45 85 20 157/137 10/02/20 22:31 96 H 22 157/137 75 L 10/02/20 22:15 91 H 21 109/77 100 10/02/20 22:00 96 H 20 116/80 100 10/02/20 21:45 93 H 21 109/74 100 10/02/20 21:33 100 H 23 112/79 100 10/02/20 21:30 98 H 24 112/79 97 10/02/20 21:27 95 H 109/70 10/02/20 21:15 95 H 28 H 109/70 100 10/02/20 21:11 100 10/02/20 21:00 94 H 17 109/70 100 10/02/20 20:45 92 H 24 108/73 100 10/02/20 20:30 93 H 26 H 106/70 100 10/02/20 20:15 102 H 29 H 115/81 100 10/02/20 20:03 101 H 101 H 24 100 10/02/20 20:00 99 H 25 H 117/87 100 10/02/20 19:45 101 H 24 117/87 100 10/02/20 19:30 98.4 F 98 H 14 106/79 100 10/02/20 19:15 95 H 19 105/72 100 10/02/20 19:00 97 H 14 108/76 100 10/02/20 18:45 92 H 25 H 112/76 10/02/20 18:30 94 H 22 111/75 10/02/20 18:15 95 H 24 113/77 100 10/02/20 18:00 96 H 22 116/77 100 10/02/20 17:45 97 H 27 H 119/72 100 10/02/20 17:30 96 H 26 H 113/82 10/02/20 17:26 99.1 F 10/02/20 17:15 100 H 24 119/79 100 10/02/20 17:00 106 H 33 H 111/84 10/02/20 16:45 95 H 25 H 114/72 100 10/02/20 16:30 97 H 24 117/74 100 10/02/20 16:15 96 H 109/71 100 10/02/20 16:00 95 H 95 H 20 111/75 100 10/02/20 15:45 96 H 20 109/76 100 10/02/20 15:30 99 H 26 H 102/71 100 10/02/20 15:15 91 H 22 100/67 100 - Physical Examination General: No Apparent Distress HEENT: Positive: PERRL Neck: Positive: trachea midline Cardiac: Positive: Reg Rate and Rhythm Lungs: Positive: Decreased Breath Sounds Neuro: Positive: Grossly Intact Skin: Positive: Clear Incision: Cardiac Cath Site (right groin) Extremities: Absent: edema - Labs and Meds Cardiac Enzymes 10/03/20 Range/Units 05:01 AST 273 H (5-40) units/L Coagulation 10/03/20 Range/Units 05:01 PT 13.2 (12.2-14.9) Sec. INR 0.95 (0.87-1.13) CBC 10/03/20 Range/Units 05:01 WBC 6.2 (4.5-11.0) K/mm3 RBC 3.49 L (3.65-5.03) M/mm3 Hgb 7.5 L (10.1-14.3) gm/dl Hct 25.1 L (30.3-42.9) % Plt Count 295 (140-440) K/mm3 Lymph # (Auto) 1.7 (1.2-5.4) K/mm3 [place] # (Auto) 0.4 (0.0-0.8) K/mm3 Eos # (Auto) 0.1 (0.0-0.4) K/mm3 Baso # (Auto) 0.0 (0.0-0.1) K/mm3 Comprehensive Metabolic Panel 10/03/20 Range/Units 05:01 Sodium 139 (137-145) mmol/L Potassium 3.8 (3.6-5.0) mmol/L Chloride 108.1 H (98-107) mmol/L Carbon Dioxide 22 (22-30) mmol/L BUN 13 (7-17) mg/dL Creatinine 0.7 (0.6-1.2) mg/dL Glucose 107 H (65-100) mg/dL Calcium 7.8 L (8.4-10.2) mg/dL AST 273 H (5-40) units/L ALT 192 H (7-56) units/L Alkaline Phosphatase 134 H (35-129) units/L Total Protein 5.7 L (6.3-8.2) g/dL Albumin 3.0 L (3.9-5) g/dL
[2020-10-03] MEDS: HEPARIN 10,000 UNITS/10 ML VIAL IV ONE (23:50)
[2020-10-03] MEDS: WARFARIN 5 MG TAB PO SCH ×2 (23:51→23:57)
[2020-10-03] MEDS: traZODone 50 MG TAB PO SCH (23:58)
[2020-10-04] MEDS: oxyCODONE /ACETAMINOPHEN 5-325MG TAB PO PRN ×2 (00:03→20:55)
[2020-10-04 06:50] LABS: INR 1.02 (0.87-1.13)
[2020-10-04 07:15] LABS: Hematocrit 24.4 % (30.3-42.9); Hemoglobin 7.4 gm/dl (10.1-14.3)
[2020-10-04] MEDS: PANTOPRAZOLE 40 MG TAB PO SCH (10:25)
[2020-10-04] MEDS: FOLIC ACID 1 MG TAB PO SCH (10:25)
[2020-10-04] MEDS: AMIODARONE 200 MG TAB PO SCH (10:25)
[2020-10-04] MEDS: SPIRONOLACTONE 25 MG TAB PO SCH (10:25)
[2020-10-04] MEDS: CLOPIDOGREL 75 MG TAB PO SCH (10:25)
[2020-10-04] MEDS: METOPROLOL TARTRATE 50 MG TAB PO SCH ×2 (10:25→21:00)
[2020-10-04] MEDS: risperiDONE 0.25 MG TAB PO SCH ×2 (10:25→21:01)
[2020-10-04] MEDS: LISINOPRIL 5 MG TAB PO SCH (10:26)
--- NOTE | 2020-10-04 12:33 | Progress Note ---
Assessment and Plan Assessment and plan: COVID-19 negative --Acute anterior wall STEMI (ST elevation myocardial infarction) Current Visit: Yes Status: Acute Cardiology evaluated s/p emergent cardiac catheterization . angiogram showed a distal thrombotic occlusion of the LAD just after the apex. Right and left coronary arteries were otherwise angiographically normal. s/p export thrombectomy and some distal plain-old balloon angioplasty. Today patient feels slightly better, hemodynamically stable --LV thrombus on echocardiogram ; Current Visit: Yes Status: Acute Continue heparin drip, Coumadin Monitor INR, therapeutic goal 2-3 Supportive care --Acute systolic congestive heart failure ; EF 25% Current Visit: Yes Status: Acute Continue antifailure medications, heparin drip due to mural thrombus -- Nicotine dependence Current Visit: Yes Status: Acute Smoking cessation counseling, nicotine patch as needed --Alcohol dependence Current Visit: Yes Status: Acute CIWA protocol: Thiamine, folic acid, multivitamin daily, supportive care. Alcohol rehabilitation upon discharge --History of bipolar disorder Current Visit: Yes Status: Acute Continue current psych medications Follow psych evaluation and recommendations --DVT prophylaxis Current Visit: No Status: Acute Patient is on heparin drip and Coumadin for LV thrombus Monitor INR, when therapeutic goal is reached between 2 and 3, heparin will be discontinued We will closely monitor the patient and adjust management as needed [employer] recommendations noted and appreciated Brief history and hospital course 50 YO Female with Asthma, Nicotine Dependence, ETOH Dependence, Bipolar Disorder was admitted through emergency room with chest pain Initial evaluation is consistent with ST elevation NH, patient had emergency cardiac catheterization, revealed distal thrombotic occlusion of LAD just after the apex,s/p thrombectomy, and balloon angioplasty. LV thrombus on echocardiogram, started on heparin drip and Coumadin, with target INR between 2 and 3, to DC heparin drip when INR reaches its target level,, patient is on multiple cardiac medications Patient also has bipolar disorder, on psych medications 10/04/2020; patient on heparin and Coumadin INR remains subtherapeutic, patient continues to have intermittent shortness of breath On all appropriate cardiac medications, cardiology recommendations noted and appreciated Patient will be discharged when she reaches therapeutic INR, and when medically stable And when cleared by cardiology History Interval history: I have seen and examined the patient at the bedside this morning Patient's chart and medications reviewed Patient feels slightly better, however is anxious about taking multiple medications I explained her condition, the need for the medications, and patient's slow improvement Patient denies any chest pain, however complains of mild shortness of breath intermittently On nasal cannula oxygen Vital signs noted Hospitalist Physical - Constitutional Vitals: Temp Pulse Resp BP Pulse Ox 98.0 F 93 H 18 134/94 96 10/04/20 03:56 10/04/20 07:54 10/04/20 03:56 10/04/20 07:54 10/04/20 09:03 General appearance: Present: no acute distress, well-nourished, other (Anxious) - EENT Eyes: Present: PERRL, EOM intact - Neck Neck: Present: supple, normal ROM - Respiratory Respiratory effort: normal Respiratory: bilateral: diminished, rales, negative: rhonchi, wheezing - Cardiovascular Rhythm: regular Heart Sounds: Present: S1 & S2 - Extremities Extremities: no ischemia Extremity abnormal: edema - Abdominal General gastrointestinal: soft, non-tender, non-distended, normal bowel sounds - Integumentary Integumentary: Present: clear, warm - Psychiatric Psychiatric: appropriate mood/affect, cooperative - Neurologic Neurologic: CNII-XII intact, moves all extremities HEART Score - HEART Score EKG: Non-specific Age: 45-65 Risk factors: 1-2 risk factors Troponin: Troponin T 3.120 ng/mL (0.00-0.029) H* 10/01/20 02:15 Troponin: > 3x normal limit Results - Labs CBC & Chem 7: 10/04/20 05:11 10/03/20 05:01 Labs: Laboratory Last Values WBC 6.2 K/mm3 (4.5-11.0) 10/03/20 05:01 RBC 3.49 M/mm3 (3.65-5.03) L 10/03/20 05:01 Hgb 7.4 gm/dl (10.1-14.3) L 10/04/20 05:11 Hct 24.4 % (30.3-42.9) L 10/04/20 05:11 MCV 72 fl (79-97) L 10/03/20 05:01 MCH 22 pg (28-32) L 10/03/20 05:01 MCHC 30 % (30-34) 10/03/20 05:01 RDW 20.8 % (13.2-15.2) H 10/03/20 05:01 Plt Count 295 K/mm3 (140-440) 10/03/20 05:01 Lymph % (Auto) 27.7 % (13.4-35.0) 10/03/20 05:01 [place] % (Auto) 6.2 % (0.0-7.3) 10/03/20 05:01 Eos % (Auto) 1.6 % (0.0-4.3) 10/03/20 05:01 Baso % (Auto) 0.8 % (0.0-1.8) 10/03/20 05:01 Lymph # (Auto) 1.7 K/mm3 (1.2-5.4) 10/03/20 05:01 [place] # (Auto) 0.4 K/mm3 (0.0-0.8) 10/03/20 05:01 Eos # (Auto) 0.1 K/mm3 (0.0-0.4) 10/03/20 05:01 Baso # (Auto) 0.0 K/mm3 (0.0-0.1) 10/03/20 05:01 Add Manual Diff Complete 10/01/20 02:15 Total Counted 100 10/01/20 02:15 Seg Neutrophils % 63.7 % (40.0-70.0) 10/03/20 05:01 Seg Neuts % (Manual) 85.0 % (40.0-70.0) H 10/01/20 02:15 Lymphocytes % (Manual) 12.0 % (13.4-35.0) L 10/01/20 02:15 Monocytes % (Manual) 3.0 % (0.0-7.3) 10/01/20 02:15 Eosinophils % (Manual) 3.0 % (0.0-4.3) 09/30/20 19:30 Nucleated RBC % Not Reportable 10/01/20 02:15 Seg Neutrophils # 4.0 K/mm3 (1.8-7.7) 10/03/20 05:01 Seg Neutrophils # Man 6.9 K/mm3 (1.8-7.7) 10/01/20 02:15 Band Neutrophils # 0.0 K/mm3 10/01/20 02:15 Lymphocytes # (Manual) 1.0 K/mm3 (1.2-5.4) L 10/01/20 02:15 Abs React Lymphs (Man) 0.0 K/mm3 10/01/20 02:15 Monocytes # (Manual) 0.2 K/mm3 (0.0-0.8) 10/01/20 02:15 Eosinophils # (Manual) 0.0 K/mm3 (0.0-0.4) 10/01/20 02:15 Basophils # (Manual) 0.0 K/mm3 (0.0-0.1) 10/01/20 02:15 Metamyelocytes # 0.0 K/mm3 10/01/20 02:15 Myelocytes # 0.0 K/mm3 10/01/20 02:15 Promyelocytes # 0.0 K/mm3 10/01/20 02:15 Blast Cells # 0.0 K/mm3 10/01/20 02:15 WBC Morphology Not Reportable 10/01/20 02:15 Hypersegmented Neuts Not Reportable 10/01/20 02:15 Hyposegmented Neuts Not Reportable 10/01/20 02:15 Hypogranular Neuts Not Reportable 10/01/20 02:15 Smudge Cells Not Reportable 10/01/20 02:15 Toxic Granulation Not Reportable 10/01/20 02:15 Toxic Vacuolation Not Reportable 10/01/20 02:15 Dohle Bodies Not Reportable 10/01/20 02:15 Pelger-Huet Anomaly Not Reportable 10/01/20 02:15 Luz Maria Rods Not Reportable 10/01/20 02:15 Platelet Estimate Consistent w auto 10/01/20 02:15 Clumped Platelets Not Reportable 10/01/20 02:15 Plt Clumps, EDTA Not Reportable 10/01/20 02:15 Large Platelets Not Reportable 10/01/20 02:15 Giant Platelets Not Reportable 10/01/20 02:15 Platelet Satelliting Not Reportable 10/01/20 02:15 Plt Morphology Comment Not Reportable 10/01/20 02:15 RBC Morphology Not Reportable 10/01/20 02:15 Dimorphic RBCs Not Reportable 10/01/20 02:15 Polychromasia Not Reportable 10/01/20 02:15 Hypochromasia 2+ 10/01/20 02:15 Poikilocytosis 1+ 10/01/20 02:15 Anisocytosis 1+ 10/01/20 02:15 Microcytosis Not Reportable 10/01/20 02:15 Macrocytosis Not Reportable 10/01/20 02:15 Spherocytes Not Reportable 10/01/20 02:15 Pappenheimer Bodies Not Reportable 10/01/20 02:15 Sickle Cells Not Reportable 10/01/20 02:15 Target Cells Not Reportable 10/01/20 02:15 Tear Drop Cells Rare 10/01/20 02:15 Ovalocytes Few 10/01/20 02:15 Helmet Cells Not Reportable 10/01/20 02:15 [place] Bodies Not Reportable 10/01/20 02:15 [place] Rings Not Reportable 10/01/20 02:15 Marilee Cells Not Reportable 10/01/20 02:15 Bite Cells Not Reportable 10/01/20 02:15 Crenated Cell Not Reportable 10/01/20 02:15 Elliptocytes Few 10/01/20 02:15 Acanthocytes (Spur) Not Reportable 10/01/20 02:15 Rouleaux Not Reportable 10/01/20 02:15 Hemoglobin C Crystals Not Reportable 10/01/20 02:15 Schistocytes Rare 10/01/20 02:15 Malaria parasites Not Reportable 10/01/20 02:15 Mamadou Bodies Not Reportable 10/01/20 02:15 Hem Pathologist Commnt No 10/01/20 02:15 PT 13.9 Sec. (12.2-14.9) 10/04/20 05:11 INR 1.02 (0.87-1.13) 10/04/20 05:11 APTT 189.0 Sec. (24.2-36.6) H* 10/01/20 00:12 Heparin Anti-Xa Level 0.64 U.I./ml (0.3-0.7) 10/03/20 16:22 Sodium 139 mmol/L (137-145) 10/03/20 05:01 Potassium 3.8 mmol/L (3.6-5.0) 10/03/20 05:01 Chloride 108.1 mmol/L (98-107) H 10/03/20 05:01 Carbon Dioxide 22 mmol/L (22-30) 10/03/20 05:01 Anion Gap 13 mmol/L 10/03/20 05:01 BUN 13 mg/dL (7-17) 10/03/20 05:01 Creatinine 0.7 mg/dL (0.6-1.2) 10/03/20 05:01 Estimated GFR > 60 ml/min 10/03/20 05:01 BUN/Creatinine Ratio 19 % 10/03/20 05:01 Glucose 107 mg/dL (65-100) H 10/03/20 05:01 Calcium 7.8 mg/dL (8.4-10.2) L 10/03/20 05:01 Magnesium 1.70 mg/dL (1.7-2.3) 10/03/20 05:01 Total Bilirubin 0.20 mg/dL (0.1-1.2) 10/03/20 05:01 AST 273 units/L (5-40) H 10/03/20 05:01 ALT 192 units/L (7-56) H 10/03/20 05:01 Alkaline Phosphatase 134 units/L (35-129) H 10/03/20 05:01 Total Creatine Kinase 1510 units/L (30-135) H 10/01/20 02:15 CK-MB (CK-2) 190.6 ng/mL (0.0-4.0) H 10/01/20 02:15 CK-MB (CK-2) Rel Index 12.6 (0-4) H 10/01/20 02:15 Troponin T 3.120 ng/mL (0.00-0.029) H* 10/01/20 02:15 Total Protein 5.7 g/dL (6.3-8.2) L 10/03/20 05:01 Albumin 3.0 g/dL (3.9-5) L 10/03/20 05:01 Albumin/Globulin Ratio 1.1 % 10/03/20 05:01 Triglycerides 151 mg/dL (2-149) H 09/30/20 19:30 Cholesterol 177 mg/dL (50-199) 09/30/20 19:30 LDL Cholesterol Direct 89 mg/dL (50-130) 09/30/20 19:30 HDL Cholesterol 73 mg/dL (40-59) H 09/30/20 19:30 Cholesterol/HDL Ratio 2.42 % 09/30/20 19:30 Coronavirus (PCR) Negative (Negative) 10/01/20 08:09 Blood Type O POSITIVE 09/30/20 19:30 Antibody Screen Negative 09/30/20 19:30 Bethea/IV: Voiding Method Bedpan Active Medications - Current Medications Current Medications: Generic Name Dose Route Start Last Admin Trade Name Freq PRN Reason Stop Dose Admin Acetaminophen 650 mg 09/30/20 20:43 Acetaminophen 325 Mg Tab PO Q6H PRN Pain MILD(1-3)/Fever >100.5/[place] Albuterol 2.5 mg 09/30/20 20:43 09/30/20 21:50 Albuterol 2.5 Mg/3 Ml Nebu IH 2.5 mg Q3HRT PRN Administration Shortness Of Breath Amiodarone HCl 200 mg 10/02/20 11:00 10/04/20 10:25 Amiodarone 200 Mg Tab PO 200 mg BID GANESH Administration Atorvastatin Calcium 40 mg 09/30/20 22:00 10/03/20 23:57 Atorvastatin 40 Mg Tab PO 40 mg QHS GANESH Administration Clopidogrel Bisulfate 75 mg 10/03/20 10:00 10/04/20 10:25 Clopidogrel 75 Mg Tab PO 75 mg QDAY GANESH Administration Cyclobenzaprine HCl 10 mg 09/30/20 20:45 10/02/20 04:29 Cyclobenzaprine 10 Mg Tab PO 10 mg TID PRN Administration Muscle Spasm Folic Acid 1 mg 10/01/20 10:00 10/04/20 10:25 Folic Acid 1 Mg Tab PO 1 mg QDAY GANESH Administration Heparin Sodium (Porcine) 2,100 unit 09/30/20 20:55 Heparin 10,000 Units/10 Ml Vial 40 unit/kg (2100 unit) IV Q6H PRN Anti-Xa Assay < 0.1 units/ml Hydromorphone HCl 0.5 mg 09/30/20 20:43 10/03/20 07:52 Hydromorphone 1 Mg/1 Ml Inj IV 0.5 mg Q12H PRN Administration Pain , Severe (7-10) Heparin Sodium/Sodium Chloride 25,000 unit in 500 mls @ 15 mls/hr 09/30/20 20:00 10/03/20 17:24 Heparin/ 0.45% Nacl-25,000 Unit/500 Ml IV 900 units/hr TITRATE GANESH 18 mls/hr Administration Protocol 750 UNITS/HR Isosorbide Mononitrate 30 mg 10/01/20 15:00 10/04/20 10:25 Isosorbide Mononitrate Er 30 Mg Tab PO 30 mg QDAY GANESH Administration Lisinopril 2.5 mg 10/03/20 10:00 10/04/20 10:26 Lisinopril 5 Mg Tab PO 2.5 mg QDAY GANESH Administration Lorazepam 2 mg 09/30/20 20:54 Lorazepam 2 Mg/Ml Vial IV Q1HR PRN CIWA-Ar 8-15 Metoprolol Tartrate 50 mg 10/01/20 15:00 10/04/20 10:25 Metoprolol Tartrate 50 Mg Tab PO 50 mg BID GANESH Administration Oxycodone/Acetaminophen 1 tab 09/30/20 20:43 10/04/20 00:03 Oxycodone /Acetaminophen 5-325mg Tab PO 1 tab Q12H PRN Administration Pain, Moderate (4-6) Pantoprazole Sodium 40 mg 10/01/20 07:30 10/04/20 10:25 Pantoprazole 40 Mg Tab PO 40 mg QDAC GANESH Administration Risperidone 0.25 mg 10/01/20 11:00 10/04/20 10:25 Risperidone 0.25 Mg Tab PO 0.25 mg BID GANESH Administration Sodium Chloride 10 ml 09/30/20 22:00 10/04/20 10:25 Sodium Chloride 0.9% 10 Ml Flush Syringe IV 10 ml BID GANESH Administration Sodium Chloride 10 ml 09/30/20 20:43 Sodium Chloride 0.9% 10 Ml Flush Syringe IV PRN PRN LINE FLUSH Spironolactone 25 mg 10/01/20 10:00 10/04/20 10:25 Spironolactone 25 Mg Tab PO 25 mg QDAY GANESH Administration Trazodone HCl 50 mg 10/01/20 22:00 10/03/20 23:58 Trazodone 50 Mg Tab PO 50 mg QHS GANESH Administration Warfarin Sodium 5 mg 10/01/20 18:30 10/03/20 23:57 Warfarin 5 Mg Tab PO 5 mg DAILY@1700 GANESH Administration Protocol Nutrition/Malnutrition Assess - Dietary Evaluation Nutrition/Malnutrition Findings: Nutrition Notes Start: 10/02/20 11:05 Freq: Status: Active Protocol: Document 10/03/20 12:30 CW (Rec: 10/03/20 12:33 CW [id number]) Nutrition Notes Need for Assessment generated from: MD Order Initial or Follow up Brief Note Other Pertinent Diagnosis STEMI, alcohol dependence Current Diet Cardiac Subjective/Other Information MD consult for malnutrition. Pt already being followed by this RD team. Pt evaluated for malnutrion. Pt does not meet criteria for malnutrition. Note: Per [place], low albumin in acute setting does NOT indicate nutritional status d/ t multiple factors affecting albumin other than nutrition. Will continue to montior as planned. Nutrition Intervention Follow-Up By: 10/06/20 Additional Comments FU for intakes and ONS tolerance
--- NOTE | 2020-10-04 13:59 | Progress Note ---
Assessment and Plan - Patient Problems (1) STEMI (ST elevation myocardial infarction) Current Visit: Yes Status: Acute Plan to address problem: Continue guideline directed medical therapy including aspirin and Plavix. (2) Dilated cardiomyopathy Current Visit: Yes Status: Acute Plan to address problem: We will continue lisinopril and metoprolol. We will discontinue amiodarone and isosorbide, due to the patient's complaints of fatigue, dyspnea and diaphoresis following medication administration. (3) Left ventricular apical thrombus Current Visit: Yes Status: Acute Plan to address problem: Continue warfarin, target INR 2.0-3.0. Subjective Date of service: 10/04/20 Principal diagnosis: STEMI Interval history: Patient reports intolerance of some of her new medications. She reports dyspnea and diaphoresis following administration of her a.m. drugs. Objective Vital Signs Temp Pulse Resp BP Pulse Ox 10/04/20 12:41 107/81 10/04/20 09:03 96 10/04/20 07:54 93 H 134/94 100 10/04/20 03:56 98.0 F 78 18 116/86 100 10/04/20 00:55 20 100 10/04/20 00:20 98.0 F 78 18 123/91 100 10/03/20 21:02 99 10/03/20 14:42 79 10/03/20 14:31 115/83 10/03/20 14:29 115/83 - Physical Examination General: No Apparent Distress HEENT: Positive: PERRL Neck: Positive: trachea midline Cardiac: Positive: Reg Rate and Rhythm Lungs: Positive: Decreased Breath Sounds Neuro: Positive: Grossly Intact Abdomen: Positive: Soft Skin: Positive: Clear Incision: Cardiac Cath Site (right groin) Extremities: Absent: edema - Labs and Meds Coagulation 10/04/20 Range/Units 05:11 PT 13.9 (12.2-14.9) Sec. INR 1.02 (0.87-1.13) CBC 10/04/20 Range/Units 05:11 Hgb 7.4 L (10.1-14.3) gm/dl Hct 24.4 L (30.3-42.9) %
[2020-10-04] MEDS: WARFARIN 5 MG TAB PO SCH (17:25)
[2020-10-04] MEDS: HEPARIN/ 0.45% NACL DRIP 25,000 UNIT/500 ML BAG IV SCH (20:57)
[2020-10-04] MEDS: traZODone 50 MG TAB PO SCH (21:00)
[2020-10-05 05:22] LABS: INR 1.14 (0.87-1.13)
[2020-10-05] MEDS: PANTOPRAZOLE 40 MG TAB PO SCH (07:53)
[2020-10-05] MEDS: CLOPIDOGREL 75 MG TAB PO SCH (09:01)
[2020-10-05] MEDS: FOLIC ACID 1 MG TAB PO SCH (09:01)
[2020-10-05] MEDS: oxyCODONE /ACETAMINOPHEN 5-325MG TAB PO PRN (09:01)
[2020-10-05] MEDS: risperiDONE 0.25 MG TAB PO SCH ×2 (09:02→21:36)
[2020-10-05] MEDS: METOPROLOL TARTRATE 50 MG TAB PO SCH ×3 (09:02→22:00)
[2020-10-05] MEDS: SPIRONOLACTONE 25 MG TAB PO SCH (09:02)
[2020-10-05] MEDS: LISINOPRIL 5 MG TAB PO SCH (09:03)
--- NOTE | 2020-10-05 10:34 | Progress Note ---
Assessment and Plan Assessment and plan: COVID-19 negative Patient was not tolerating amiodarone and isosorbide[had fatigue and generalized weakness] These meds were discontinued by cardiology, patient feels better --Acute anterior wall STEMI (ST elevation myocardial infarction) Current Visit: Yes Status: Acute Cardiology evaluated s/p emergent cardiac catheterization . angiogram showed a distal thrombotic occlusion of the LAD just after the apex. Right and left coronary arteries were otherwise angiographically normal. s/p export thrombectomy and some distal plain-old balloon angioplasty. Today patient feels slightly better, hemodynamically stable --LV thrombus on echocardiogram ; Current Visit: Yes Status: Acute Continue heparin drip, Coumadin Monitor INR, therapeutic goal 2-3,Supportive care --Acute systolic congestive heart failure ; EF 25% Current Visit: Yes Status: Acute Continue antifailure medications, heparin drip due to mural thrombus Noted output monitoring, fluid restriction -- Nicotine dependence Current Visit: Yes Status: Acute Smoking cessation counseling, nicotine patch as needed --Alcohol dependence Current Visit: Yes Status: Acute CIME protocol: Thiamine, folic acid, multivitamin daily, supportive care. Alcohol rehabilitation upon discharge --History of bipolar disorder Current Visit: Yes Status: Acute Continue current psych medications Follow psych evaluation and recommendations --DVT prophylaxis Current Visit: No Status: Acute Patient is on heparin drip and Coumadin for LV thrombus Monitor INR, when therapeutic goal is reached between 2 and 3, heparin will be discontinued We will closely monitor the patient and adjust management as needed Coding Specialist Home Health recommendations noted and appreciated Brief history and hospital course 50 YO Female with Asthma, Nicotine Dependence, ETOH Dependence, Bipolar Disorder was admitted through emergency room with chest pain Initial evaluation is consistent with ST elevation AL, patient had emergency cardiac catheterization, revealed distal thrombotic occlusion of LAD just after the apex,s/p thrombectomy, and balloon angioplasty. LV thrombus on echocardiogram, started on heparin drip and Coumadin, with target INR between 2 and 3, to DC heparin drip when INR reaches its target level,, patient is on multiple cardiac medications Patient also has bipolar disorder, on psych medications 10/04/2020; patient on heparin and Coumadin INR remains subtherapeutic, patient continues to have intermittent shortness of breath On all appropriate cardiac medications, cardiology recommendations noted and appreciated Patient will be discharged when she reaches therapeutic INR, and when medically stable And when cleared by cardiology 10/05/2020; on heparin drip and Coumadin, subtherapeutic INR 1.14 Therapeutic goal 2-3, cardiology recommendations noted and appreciated Amiodarone and isosorbide was discontinued by cardiology as patient was not tolerating History Interval history: I have seen and examined the patient at the bedside this morning Patient's chart and medications reviewed Patient feels better today No new complaints INR is subtherapeutic Vital signs noted Hospitalist Physical - Constitutional Vitals: Temp Pulse Resp BP Pulse Ox 98.2 F 88 17 142/99 98 10/05/20 08:34 10/05/20 08:34 10/05/20 09:01 10/05/20 08:34 10/05/20 08:46 General appearance: Present: no acute distress, well-nourished - EENT Eyes: Present: PERRL, EOM intact - Neck Neck: Present: supple, normal ROM - Respiratory Respiratory effort: normal Respiratory: bilateral: diminished, negative: rales, rhonchi, wheezing - Cardiovascular Rhythm: regular Heart Sounds: Present: S1 & S2 - Extremities Extremities: no ischemia, No edema - Abdominal General gastrointestinal: soft, non-tender, non-distended, normal bowel sounds - Integumentary Integumentary: Present: clear, warm - Psychiatric Psychiatric: appropriate mood/affect, cooperative - Neurologic Neurologic: CNII-XII intact, moves all extremities HEART Score - HEART Score EKG: Non-specific Age: 45-65 Risk factors: 1-2 risk factors Troponin: Troponin T 3.120 ng/mL (0.00-0.029) H* 10/01/20 02:15 Troponin: > 3x normal limit Results - Labs CBC & Chem 7: 10/04/20 05:11 10/03/20 05:01 Labs: Laboratory Last Values WBC 6.2 K/mm3 (4.5-11.0) 10/03/20 05:01 RBC 3.49 M/mm3 (3.65-5.03) L 10/03/20 05:01 Hgb 7.4 gm/dl (10.1-14.3) L 10/04/20 05:11 Hct 24.4 % (30.3-42.9) L 10/04/20 05:11 MCV 72 fl (79-97) L 10/03/20 05:01 MCH 22 pg (28-32) L 10/03/20 05:01 MCHC 30 % (30-34) 10/03/20 05:01 RDW 20.8 % (13.2-15.2) H 10/03/20 05:01 Plt Count 295 K/mm3 (140-440) 10/03/20 05:01 Lymph % (Auto) 27.7 % (13.4-35.0) 10/03/20 05:01 Fajardo % (Auto) 6.2 % (0.0-7.3) 10/03/20 05:01 Eos % (Auto) 1.6 % (0.0-4.3) 10/03/20 05:01 Baso % (Auto) 0.8 % (0.0-1.8) 10/03/20 05:01 Lymph # (Auto) 1.7 K/mm3 (1.2-5.4) 10/03/20 05:01 Fajardo # (Auto) 0.4 K/mm3 (0.0-0.8) 10/03/20 05:01 Eos # (Auto) 0.1 K/mm3 (0.0-0.4) 10/03/20 05:01 Baso # (Auto) 0.0 K/mm3 (0.0-0.1) 10/03/20 05:01 Add Manual Diff Complete 10/01/20 02:15 Total Counted 100 10/01/20 02:15 Seg Neutrophils % 63.7 % (40.0-70.0) 10/03/20 05:01 Seg Neuts % (Manual) 85.0 % (40.0-70.0) H 10/01/20 02:15 Lymphocytes % (Manual) 12.0 % (13.4-35.0) L 10/01/20 02:15 Monocytes % (Manual) 3.0 % (0.0-7.3) 10/01/20 02:15 Eosinophils % (Manual) 3.0 % (0.0-4.3) 09/30/20 19:30 Nucleated RBC % Not Reportable 10/01/20 02:15 Seg Neutrophils # 4.0 K/mm3 (1.8-7.7) 10/03/20 05:01 Seg Neutrophils # Man 6.9 K/mm3 (1.8-7.7) 10/01/20 02:15 Band Neutrophils # 0.0 K/mm3 10/01/20 02:15 Lymphocytes # (Manual) 1.0 K/mm3 (1.2-5.4) L 10/01/20 02:15 Abs React Lymphs (Man) 0.0 K/mm3 10/01/20 02:15 Monocytes # (Manual) 0.2 K/mm3 (0.0-0.8) 10/01/20 02:15 Eosinophils # (Manual) 0.0 K/mm3 (0.0-0.4) 10/01/20 02:15 Basophils # (Manual) 0.0 K/mm3 (0.0-0.1) 10/01/20 02:15 Metamyelocytes # 0.0 K/mm3 10/01/20 02:15 Myelocytes # 0.0 K/mm3 10/01/20 02:15 Promyelocytes # 0.0 K/mm3 10/01/20 02:15 Blast Cells # 0.0 K/mm3 10/01/20 02:15 WBC Morphology Not Reportable 10/01/20 02:15 Hypersegmented Neuts Not Reportable 10/01/20 02:15 Hyposegmented Neuts Not Reportable 10/01/20 02:15 Hypogranular Neuts Not Reportable 10/01/20 02:15 Smudge Cells Not Reportable 10/01/20 02:15 Toxic Granulation Not Reportable 10/01/20 02:15 Toxic Vacuolation Not Reportable 10/01/20 02:15 Dohle Bodies Not Reportable 10/01/20 02:15 Pelger-Huet Anomaly Not Reportable 10/01/20 02:15 Luz Maria Rods Not Reportable 10/01/20 02:15 Platelet Estimate Consistent w auto 10/01/20 02:15 Clumped Platelets Not Reportable 10/01/20 02:15 Plt Clumps, EDTA Not Reportable 10/01/20 02:15 Large Platelets Not Reportable 10/01/20 02:15 Giant Platelets Not Reportable 10/01/20 02:15 Platelet Satelliting Not Reportable 10/01/20 02:15 Plt Morphology Comment Not Reportable 10/01/20 02:15 RBC Morphology Not Reportable 10/01/20 02:15 Dimorphic RBCs Not Reportable 10/01/20 02:15 Polychromasia Not Reportable 10/01/20 02:15 Hypochromasia 2+ 10/01/20 02:15 Poikilocytosis 1+ 10/01/20 02:15 Anisocytosis 1+ 10/01/20 02:15 Microcytosis Not Reportable 10/01/20 02:15 Macrocytosis Not Reportable 10/01/20 02:15 Spherocytes Not Reportable 10/01/20 02:15 Pappenheimer Bodies Not Reportable 10/01/20 02:15 Sickle Cells Not Reportable 10/01/20 02:15 Target Cells Not Reportable 10/01/20 02:15 Tear Drop Cells Rare 10/01/20 02:15 Ovalocytes Few 10/01/20 02:15 Helmet Cells Not Reportable 10/01/20 02:15 [place] Bodies Not Reportable 10/01/20 02:15 Robinson Rings Not Reportable 10/01/20 02:15 Marilee Cells Not Reportable 10/01/20 02:15 Bite Cells Not Reportable 10/01/20 02:15 Crenated Cell Not Reportable 10/01/20 02:15 Elliptocytes Few 10/01/20 02:15 Acanthocytes (Spur) Not Reportable 10/01/20 02:15 Rouleaux Not Reportable 10/01/20 02:15 Hemoglobin C Crystals Not Reportable 10/01/20 02:15 Schistocytes Rare 10/01/20 02:15 Malaria parasites Not Reportable 10/01/20 02:15 Mamadou Bodies Not Reportable 10/01/20 02:15 Hem Pathologist Commnt No 10/01/20 02:15 PT 15.1 Sec. (12.2-14.9) H 10/05/20 04:02 INR 1.14 (0.87-1.13) H 10/05/20 04:02 APTT 189.0 Sec. (24.2-36.6) H* 10/01/20 00:12 Heparin Anti-Xa Level 0.50 U.I./ml (0.3-0.7) 10/04/20 16:56 Sodium 139 mmol/L (137-145) 10/03/20 05:01 Potassium 3.8 mmol/L (3.6-5.0) 10/03/20 05:01 Chloride 108.1 mmol/L (98-107) H 10/03/20 05:01 Carbon Dioxide 22 mmol/L (22-30) 10/03/20 05:01 Anion Gap 13 mmol/L 10/03/20 05:01 BUN 13 mg/dL (7-17) 10/03/20 05:01 Creatinine 0.7 mg/dL (0.6-1.2) 10/03/20 05:01 Estimated GFR > 60 ml/min 10/03/20 05:01 BUN/Creatinine Ratio 19 % 10/03/20 05:01 Glucose 107 mg/dL (65-100) H 10/03/20 05:01 Calcium 7.8 mg/dL (8.4-10.2) L 10/03/20 05:01 Magnesium 1.70 mg/dL (1.7-2.3) 10/03/20 05:01 Total Bilirubin 0.20 mg/dL (0.1-1.2) 10/03/20 05:01 AST 273 units/L (5-40) H 10/03/20 05:01 ALT 192 units/L (7-56) H 10/03/20 05:01 Alkaline Phosphatase 134 units/L (35-129) H 10/03/20 05:01 Total Creatine Kinase 1510 units/L (30-135) H 10/01/20 02:15 CK-MB (CK-2) 190.6 ng/mL (0.0-4.0) H 10/01/20 02:15 CK-MB (CK-2) Rel Index 12.6 (0-4) H 10/01/20 02:15 Troponin T 3.120 ng/mL (0.00-0.029) H* 10/01/20 02:15 Total Protein 5.7 g/dL (6.3-8.2) L 10/03/20 05:01 Albumin 3.0 g/dL (3.9-5) L 10/03/20 05:01 Albumin/Globulin Ratio 1.1 % 10/03/20 05:01 Triglycerides 151 mg/dL (2-149) H 09/30/20 19:30 Cholesterol 177 mg/dL (50-199) 09/30/20 19:30 LDL Cholesterol Direct 89 mg/dL (50-130) 09/30/20 19:30 HDL Cholesterol 73 mg/dL (40-59) H 09/30/20 19:30 Cholesterol/HDL Ratio 2.42 % 09/30/20 19:30 Coronavirus (PCR) Negative (Negative) 10/01/20 08:09 Blood Type O POSITIVE 09/30/20 19:30 Antibody Screen Negative 09/30/20 19:30 Bethea/IV: Voiding Method Toilet Active Medications - Current Medications Current Medications: Generic Name Dose Route Start Last Admin Trade Name Freq PRN Reason Stop Dose Admin Acetaminophen 650 mg 09/30/20 20:43 Acetaminophen 325 Mg Tab PO Q6H PRN Pain MILD(1-3)/Fever >100.5/[place] Albuterol 2.5 mg 09/30/20 20:43 09/30/20 21:50 Albuterol 2.5 Mg/3 Ml Nebu IH 2.5 mg Q3HRT PRN Administration Shortness Of Breath Atorvastatin Calcium 40 mg 09/30/20 22:00 10/04/20 21:00 Atorvastatin 40 Mg Tab PO Not Given QHS GANESH Clopidogrel Bisulfate 75 mg 10/03/20 10:00 10/05/20 09:01 Clopidogrel 75 Mg Tab PO 75 mg QDAY GANESH Administration Cyclobenzaprine HCl 10 mg 09/30/20 20:45 10/02/20 04:29 Cyclobenzaprine 10 Mg Tab PO 10 mg TID PRN Administration Muscle Spasm Folic Acid 1 mg 10/01/20 10:00 10/05/20 09:01 Folic Acid 1 Mg Tab PO 1 mg QDAY GANESH Administration Heparin Sodium (Porcine) 2,100 unit 09/30/20 20:55 Heparin 10,000 Units/10 Ml Vial 40 unit/kg (2100 unit) IV Q6H PRN Anti-Xa Assay < 0.1 units/ml Hydromorphone HCl 0.5 mg 09/30/20 20:43 10/03/20 07:52 Hydromorphone 1 Mg/1 Ml Inj IV 0.5 mg Q12H PRN Administration Pain , Severe (7-10) Heparin Sodium/Sodium Chloride 25,000 unit in 500 mls @ 15 mls/hr 09/30/20 20:00 10/04/20 20:57 Heparin/ 0.45% Nacl-25,000 Unit/500 Ml IV 900 units/hr TITRATE GANESH 18 mls/hr Administration Protocol 750 UNITS/HR Lisinopril 2.5 mg 10/03/20 10:00 10/05/20 09:03 Lisinopril 5 Mg Tab PO Not Given QDAY GANESH Lorazepam 2 mg 09/30/20 20:54 Lorazepam 2 Mg/Ml Vial IV Q1HR PRN CIWA-Ar 8-15 Metoprolol Tartrate 50 mg 10/01/20 15:00 10/05/20 09:02 Metoprolol Tartrate 50 Mg Tab PO Not Given BID GANESH Oxycodone/Acetaminophen 1 tab 09/30/20 20:43 10/05/20 09:01 Oxycodone /Acetaminophen 5-325mg Tab PO 1 tab Q12H PRN Administration Pain, Moderate (4-6) Pantoprazole Sodium 40 mg 10/01/20 07:30 10/05/20 07:53 Pantoprazole 40 Mg Tab PO 40 mg QDAC GANESH Administration Risperidone 0.25 mg 10/01/20 11:00 10/05/20 09:02 Risperidone 0.25 Mg Tab PO Not Given BID GANESH Sodium Chloride 10 ml 09/30/20 22:00 10/05/20 09:03 Sodium Chloride 0.9% 10 Ml Flush Syringe IV 10 ml BID GANESH Administration Sodium Chloride 10 ml 09/30/20 20:43 Sodium Chloride 0.9% 10 Ml Flush Syringe IV PRN PRN LINE FLUSH Spironolactone 25 mg 10/01/20 10:00 10/05/20 09:02 Spironolactone 25 Mg Tab PO Not Given QDAY GANESH Trazodone HCl 50 mg 10/01/20 22:00 10/04/20 21:00 Trazodone 50 Mg Tab PO Not Given QHS GANESH Warfarin Sodium 7.5 mg 10/05/20 17:00 Warfarin 7.5 Mg Tab PO DAILY@1700 [facility] Protocol Nutrition/Malnutrition Assess - Dietary Evaluation Nutrition/Malnutrition Findings: Nutrition Notes Start: 10/02/20 11:05 Freq: Status: Active Protocol: Document 10/03/20 12:30 CW (Rec: 10/03/20 12:33 CW [id number]) Nutrition Notes Need for Assessment generated from: MD Order Initial or Follow up Brief Note Other Pertinent Diagnosis STEMI, alcohol dependence Current Diet Cardiac Subjective/Other Information MD consult for malnutrition. Pt already being followed by this RD team. Pt evaluated for malnutrion. Pt does not meet criteria for malnutrition. Note: Per aspen, low albumin in acute setting does NOT indicate nutritional status d/ t multiple factors affecting albumin other than nutrition. Will continue to montior as planned. Nutrition Intervention Follow-Up By: 10/06/20 Additional Comments FU for intakes and ONS tolerance
--- NOTE | 2020-10-05 13:14 | Progress Note ---
Assessment and Plan - Patient Problems (1) STEMI (ST elevation myocardial infarction) Current Visit: Yes Status: Acute Plan to address problem: Continue guideline directed medical therapy including aspirin and Plavix. (2) Dilated cardiomyopathy Current Visit: Yes Status: Acute Plan to address problem: We will continue lisinopril and metoprolol. We will discontinue amiodarone and isosorbide, due to the patient's complaints of fatigue, dyspnea and diaphoresis following medication administration. (3) Left ventricular apical thrombus Current Visit: Yes Status: Acute Plan to address problem: Continue warfarin, target INR 2.0-3.0. Subjective Date of service: 10/05/20 Principal diagnosis: STEMI Interval history: Patient is comfortable looks and feels better, no further medication intolerance after stoppage of isosorbide and amiodarone. INR is still subtherapeutic 1.14. Objective Vital Signs Temp Pulse Resp BP Pulse Ox 10/05/20 11:45 125/95 10/05/20 10:01 14 10/05/20 09:01 17 10/05/20 08:46 16 98 10/05/20 08:34 98.2 F 88 20 142/99 98 10/05/20 04:51 82 95 10/05/20 04:48 98.7 F 18 113/83 10/05/20 00:33 72 100 10/04/20 23:57 98.5 F 18 117/77 10/04/20 22:14 100 10/04/20 20:55 18 10/04/20 20:21 98.9 F 83 17 107/82 97 10/04/20 20:05 20 98 10/04/20 20:02 88 - Physical Examination General: No Apparent Distress HEENT: Positive: PERRL Neck: Positive: trachea midline Cardiac: Positive: Reg Rate and Rhythm Lungs: Positive: Decreased Breath Sounds Neuro: Positive: Grossly Intact Abdomen: Positive: Soft Skin: Positive: Clear Incision: Cardiac Cath Site (right groin) Extremities: Absent: edema - Labs and Meds Coagulation 10/05/20 Range/Units 04:02 PT 15.1 H (12.2-14.9) Sec. INR 1.14 H (0.87-1.13)
[2020-10-05] MEDS: WARFARIN 7.5 MG TAB PO SCH (16:26)
[2020-10-05] MEDS: HYDROmorphone 1 MG/1 ML INJ IV PRN (21:36)
[2020-10-05] MEDS: traZODone 50 MG TAB PO SCH (21:36)
[2020-10-06 05:37] LABS: Hematocrit 25.6 % (30.3-42.9); Hemoglobin 7.7 gm/dl (10.1-14.3)
[2020-10-06 05:49] LABS: INR 1.35 (0.87-1.13)
[2020-10-06 06:18] LABS: Albumin 3.2 g/dL (3.9-5); Blood Urea Nitrogen 10 mg/dL (7-17); Calcium 8.7 mg/dL (8.4-10.2); Hemolysis Index 0
[2020-10-06 06:26] LABS: BUN/Creatinine Ratio 20
[2020-10-06 06:32] LABS: Alanine Aminotransferase 727 units/L (7-56)
[2020-10-06] MEDS: FOLIC ACID 1 MG TAB PO SCH (09:23)
[2020-10-06] MEDS: CLOPIDOGREL 75 MG TAB PO SCH (09:24)
[2020-10-06] MEDS: PANTOPRAZOLE 40 MG TAB PO SCH (09:24)
[2020-10-06] MEDS: METOPROLOL TARTRATE 50 MG TAB PO SCH ×2 (09:25→21:03)
[2020-10-06] MEDS: SPIRONOLACTONE 25 MG TAB PO SCH (09:25)
[2020-10-06] MEDS: LISINOPRIL 5 MG TAB PO SCH (09:26)
[2020-10-06] MEDS: risperiDONE 0.25 MG TAB PO SCH ×2 (09:26→21:02)
[2020-10-06] MEDS: ALBUTEROL 2.5 MG/3 ML NEBU IH PRN (09:41)
--- NOTE | 2020-10-06 10:22 | Progress Note ---
Assessment and Plan Assessment and plan: --COVID-19 negative --Transaminitis; Probably secondary to congestion of the liver due to cardiomyopathy with ejection fraction of 25% However as LFTs are increasing, will check acute hepatitis panel, abdominal ultrasound And GI evaluation if needed --Acute anterior wall STEMI (ST elevation myocardial infarction) Current Visit: Yes Status: Acute Cardiology evaluated s/p emergent cardiac catheterization . angiogram showed a distal thrombotic occlusion of the LAD just after the apex. Right and left coronary arteries were otherwise angiographically normal. s/p export thrombectomy and some distal plain-old balloon angioplasty. Today patient feels slightly better, hemodynamically stable Patient was not tolerating amiodarone and isosorbide[had fatigue and generalized weakness] These meds were discontinued by cardiology, patient feels better --LV thrombus on echocardiogram ; Current Visit: Yes Status: Acute Continue heparin drip, Coumadin Subtherapeutic INR at 1.35, goal 2-3 --Acute systolic congestive heart failure ; EF 25% Current Visit: Yes Status: Acute Continue antifailure medications, heparin drip due to mural thrombus Noted output monitoring, fluid restriction -- Nicotine dependence Current Visit: Yes Status: Acute Smoking cessation counseling, nicotine patch as needed --Alcohol dependence Current Visit: Yes Status: Acute CINE protocol: Thiamine, folic acid, multivitamin daily, supportive care. Alcohol rehabilitation upon discharge --History of bipolar disorder Current Visit: Yes Status: Acute Continue current psych medications Follow psych evaluation and recommendations --DVT prophylaxis Current Visit: No Status: Acute Patient is on heparin drip and Coumadin for LV thrombus Monitor INR, when therapeutic goal is reached between 2 and 3, heparin will be discontinued We will closely monitor the patient and adjust management as needed Financial Secretary recommendations noted and appreciated Brief history and hospital course 50 YO Female with Asthma, Nicotine Dependence, ETOH Dependence, Bipolar Disorder was admitted through emergency room with chest pain Initial evaluation is consistent with ST elevation AL, patient had emergency cardiac catheterization, revealed distal thrombotic occlusion of LAD just after the apex,s/p thrombectomy, and balloon angioplasty. LV thrombus on echocardiogram, started on heparin drip and Coumadin, with target INR between 2 and 3, to DC heparin drip when INR reaches its target level,, patient is on multiple cardiac medications Patient also has bipolar disorder, on psych medications 10/04/2020; patient on heparin and Coumadin INR remains subtherapeutic, patient continues to have intermittent shortness of breath On all appropriate cardiac medications, cardiology recommendations noted and appreciated Patient will be discharged when she reaches therapeutic INR, and when medically stable And when cleared by cardiology 10/05/2020; on heparin drip and Coumadin, subtherapeutic INR 1.14 Therapeutic goal 2-3, cardiology recommendations noted and appreciated Amiodarone and isosorbide was discontinued by cardiology as patient was not tolerating 10/06/2020; patient's INR remains subtherapeutic at 1.3/goal 2-3 Also worsening LFTs, probably due to liver congestion due to his cardiomyopathy However we will check abdominal ultrasound, acute hepatitis panel, GI consult if needed History Interval history: Seen and examined the patient at the bedside Patient's chart and medications reviewed Patient feels slightly better INR is subtherapeutic Vital signs noted Hospitalist Physical - Constitutional Vitals: Temp Pulse Resp BP Pulse Ox 98.0 F 80 18 103/73 100 10/06/20 08:13 10/06/20 09:47 10/06/20 09:47 10/06/20 09:26 10/06/20 09:46 General appearance: Present: no acute distress, well-nourished - EENT Eyes: Present: PERRL, EOM intact - Neck Neck: Present: supple, normal ROM - Respiratory Respiratory effort: normal Respiratory: bilateral: diminished, rales, rhonchi, negative: wheezing - Cardiovascular Rhythm: regular Heart Sounds: Present: S1 & S2 - Extremities Extremities: no ischemia Extremity abnormal: edema - Abdominal General gastrointestinal: soft, non-tender, non-distended, normal bowel sounds - Integumentary Integumentary: Present: clear, warm - Psychiatric Psychiatric: appropriate mood/affect, cooperative - Neurologic Neurologic: moves all extremities HEART Score - HEART Score EKG: Non-specific Age: 45-65 Risk factors: 1-2 risk factors Troponin: Troponin T 3.120 ng/mL (0.00-0.029) H* 10/01/20 02:15 Troponin: > 3x normal limit Results - Labs CBC & Chem 7: 10/06/20 04:57 10/06/20 04:57 Labs: Laboratory Last Values WBC 6.2 K/mm3 (4.5-11.0) 10/03/20 05:01 RBC 3.49 M/mm3 (3.65-5.03) L 10/03/20 05:01 Hgb 7.7 gm/dl (10.1-14.3) L 10/06/20 04:57 Hct 25.6 % (30.3-42.9) L 10/06/20 04:57 MCV 72 fl (79-97) L 10/03/20 05:01 MCH 22 pg (28-32) L 10/03/20 05:01 MCHC 30 % (30-34) 10/03/20 05:01 RDW 20.8 % (13.2-15.2) H 10/03/20 05:01 Plt Count 295 K/mm3 (140-440) 10/03/20 05:01 Lymph % (Auto) 27.7 % (13.4-35.0) 10/03/20 05:01 [place] % (Auto) 6.2 % (0.0-7.3) 10/03/20 05:01 Eos % (Auto) 1.6 % (0.0-4.3) 10/03/20 05:01 Baso % (Auto) 0.8 % (0.0-1.8) 10/03/20 05:01 Lymph # (Auto) 1.7 K/mm3 (1.2-5.4) 10/03/20 05:01 [place] # (Auto) 0.4 K/mm3 (0.0-0.8) 10/03/20 05:01 Eos # (Auto) 0.1 K/mm3 (0.0-0.4) 10/03/20 05:01 Baso # (Auto) 0.0 K/mm3 (0.0-0.1) 10/03/20 05:01 Add Manual Diff Complete 10/01/20 02:15 Total Counted 100 10/01/20 02:15 Seg Neutrophils % 63.7 % (40.0-70.0) 10/03/20 05:01 Seg Neuts % (Manual) 85.0 % (40.0-70.0) H 10/01/20 02:15 Lymphocytes % (Manual) 12.0 % (13.4-35.0) L 10/01/20 02:15 Monocytes % (Manual) 3.0 % (0.0-7.3) 10/01/20 02:15 Eosinophils % (Manual) 3.0 % (0.0-4.3) 09/30/20 19:30 Nucleated RBC % Not Reportable 10/01/20 02:15 Seg Neutrophils # 4.0 K/mm3 (1.8-7.7) 10/03/20 05:01 Seg Neutrophils # Man 6.9 K/mm3 (1.8-7.7) 10/01/20 02:15 Band Neutrophils # 0.0 K/mm3 10/01/20 02:15 Lymphocytes # (Manual) 1.0 K/mm3 (1.2-5.4) L 10/01/20 02:15 Abs React Lymphs (Man) 0.0 K/mm3 10/01/20 02:15 Monocytes # (Manual) 0.2 K/mm3 (0.0-0.8) 10/01/20 02:15 Eosinophils # (Manual) 0.0 K/mm3 (0.0-0.4) 10/01/20 02:15 Basophils # (Manual) 0.0 K/mm3 (0.0-0.1) 10/01/20 02:15 Metamyelocytes # 0.0 K/mm3 10/01/20 02:15 Myelocytes # 0.0 K/mm3 10/01/20 02:15 Promyelocytes # 0.0 K/mm3 10/01/20 02:15 Blast Cells # 0.0 K/mm3 10/01/20 02:15 WBC Morphology Not Reportable 10/01/20 02:15 Hypersegmented Neuts Not Reportable 10/01/20 02:15 Hyposegmented Neuts Not Reportable 10/01/20 02:15 Hypogranular Neuts Not Reportable 10/01/20 02:15 Smudge Cells Not Reportable 10/01/20 02:15 Toxic Granulation Not Reportable 10/01/20 02:15 Toxic Vacuolation Not Reportable 10/01/20 02:15 Dohle Bodies Not Reportable 10/01/20 02:15 Pelger-Huet Anomaly Not Reportable 10/01/20 02:15 Luz Maria Rods Not Reportable 10/01/20 02:15 Platelet Estimate Consistent w auto 10/01/20 02:15 Clumped Platelets Not Reportable 10/01/20 02:15 Plt Clumps, EDTA Not Reportable 10/01/20 02:15 Large Platelets Not Reportable 10/01/20 02:15 Giant Platelets Not Reportable 10/01/20 02:15 Platelet Satelliting Not Reportable 10/01/20 02:15 Plt Morphology Comment Not Reportable 10/01/20 02:15 RBC Morphology Not Reportable 10/01/20 02:15 Dimorphic RBCs Not Reportable 10/01/20 02:15 Polychromasia Not Reportable 10/01/20 02:15 Hypochromasia 2+ 10/01/20 02:15 Poikilocytosis 1+ 10/01/20 02:15 Anisocytosis 1+ 10/01/20 02:15 Microcytosis Not Reportable 10/01/20 02:15 Macrocytosis Not Reportable 10/01/20 02:15 Spherocytes Not Reportable 10/01/20 02:15 Pappenheimer Bodies Not Reportable 10/01/20 02:15 Sickle Cells Not Reportable 10/01/20 02:15 Target Cells Not Reportable 10/01/20 02:15 Tear Drop Cells Rare 10/01/20 02:15 Ovalocytes Few 10/01/20 02:15 Helmet Cells Not Reportable 10/01/20 02:15 Martin-[place] Bodies Not Reportable 10/01/20 02:15 [place] Rings Not Reportable 10/01/20 02:15 Wallace Cells Not Reportable 10/01/20 02:15 Bite Cells Not Reportable 10/01/20 02:15 Crenated Cell Not Reportable 10/01/20 02:15 Elliptocytes Few 10/01/20 02:15 Acanthocytes (Spur) Not Reportable 10/01/20 02:15 Rouleaux Not Reportable 10/01/20 02:15 Hemoglobin C Crystals Not Reportable 10/01/20 02:15 Schistocytes Rare 10/01/20 02:15 Malaria parasites Not Reportable 10/01/20 02:15 Mamadou Bodies Not Reportable 10/01/20 02:15 Hem Pathologist Commnt No 10/01/20 02:15 PT 17.2 Sec. (12.2-14.9) H 10/06/20 04:57 INR 1.35 (0.87-1.13) H 10/06/20 04:57 APTT 189.0 Sec. (24.2-36.6) H* 10/01/20 00:12 Heparin Anti-Xa Level 0.61 U.I./ml (0.3-0.7) 10/05/20 17:12 Sodium 137 mmol/L (137-145) 10/06/20 04:57 Potassium 4.3 mmol/L (3.6-5.0) 10/06/20 04:57 Chloride 103.4 mmol/L (98-107) 10/06/20 04:57 Carbon Dioxide 25 mmol/L (22-30) 10/06/20 04:57 Anion Gap 13 mmol/L 10/06/20 04:57 BUN 10 mg/dL (7-17) 10/06/20 04:57 Creatinine 0.5 mg/dL (0.6-1.2) L 10/06/20 04:57 Estimated GFR > 60 ml/min 10/06/20 04:57 BUN/Creatinine Ratio 20 % 10/06/20 04:57 Glucose 113 mg/dL (65-100) H 10/06/20 04:57 Calcium 8.7 mg/dL (8.4-10.2) 10/06/20 04:57 Magnesium 1.80 mg/dL (1.7-2.3) 10/06/20 04:57 Total Bilirubin 0.30 mg/dL (0.1-1.2) 10/06/20 04:57 AST 450 units/L (5-40) H 10/06/20 04:57 ALT 727 units/L (7-56) H 10/06/20 04:57 Alkaline Phosphatase 149 units/L (35-129) H 10/06/20 04:57 Total Creatine Kinase 1510 units/L (30-135) H 10/01/20 02:15 CK-MB (CK-2) 190.6 ng/mL (0.0-4.0) H 10/01/20 02:15 CK-MB (CK-2) Rel Index 12.6 (0-4) H 10/01/20 02:15 Troponin T 3.120 ng/mL (0.00-0.029) H* 10/01/20 02:15 Total Protein 5.9 g/dL (6.3-8.2) L 10/06/20 04:57 Albumin 3.2 g/dL (3.9-5) L 10/06/20 04:57 Albumin/Globulin Ratio 1.2 % 10/06/20 04:57 Triglycerides 151 mg/dL (2-149) H 09/30/20 19:30 Cholesterol 177 mg/dL (50-199) 09/30/20 19:30 LDL Cholesterol Direct 89 mg/dL (50-130) 09/30/20 19:30 HDL Cholesterol 73 mg/dL (40-59) H 09/30/20 19:30 Cholesterol/HDL Ratio 2.42 % 09/30/20 19:30 Coronavirus (PCR) Negative (Negative) 10/01/20 08:09 Blood Type O POSITIVE 09/30/20 19:30 Antibody Screen Negative 09/30/20 19:30 Bethea/IV: Voiding Method Toilet Active Medications - Current Medications Current Medications: Generic Name Dose Route Start Last Admin Trade Name Freq PRN Reason Stop Dose Admin Acetaminophen 650 mg 09/30/20 20:43 Acetaminophen 325 Mg Tab PO Q6H PRN Pain MILD(1-3)/Fever >100.5/[place] Albuterol 2.5 mg 09/30/20 20:43 10/06/20 09:41 Albuterol 2.5 Mg/3 Ml Nebu IH 2.5 mg Q3HRT PRN Administration Shortness Of Breath Atorvastatin Calcium 40 mg 09/30/20 22:00 10/05/20 22:00 Atorvastatin 40 Mg Tab PO Not Given QHS GANESH Clopidogrel Bisulfate 75 mg 10/03/20 10:00 10/06/20 09:24 Clopidogrel 75 Mg Tab PO 75 mg QDAY GANESH Administration Cyclobenzaprine HCl 10 mg 09/30/20 20:45 10/02/20 04:29 Cyclobenzaprine 10 Mg Tab PO 10 mg TID PRN Administration Muscle Spasm Folic Acid 1 mg 10/01/20 10:00 10/06/20 09:23 Folic Acid 1 Mg Tab PO 1 mg QDAY GANESH Administration Heparin Sodium (Porcine) 2,100 unit 09/30/20 20:55 Heparin 10,000 Units/10 Ml Vial 40 unit/kg (2100 unit) IV Q6H PRN Anti-Xa Assay < 0.1 units/ml Hydromorphone HCl 0.5 mg 09/30/20 20:43 10/05/20 21:36 Hydromorphone 1 Mg/1 Ml Inj IV 0.5 mg Q12H PRN Administration Pain , Severe (7-10) Heparin Sodium/Sodium Chloride 25,000 unit in 500 mls @ 15 mls/hr 09/30/20 20:00 10/04/20 20:57 Heparin/ 0.45% Nacl-25,000 Unit/500 Ml IV 900 units/hr TITRATE GANESH 18 mls/hr Administration Protocol 750 UNITS/HR Lisinopril 2.5 mg 10/03/20 10:00 10/06/20 09:26 Lisinopril 5 Mg Tab PO Not Given QDAY GANESH Lorazepam 2 mg 09/30/20 20:54 Lorazepam 2 Mg/Ml Vial IV Q1HR PRN CIWA-Ar 8-15 Metoprolol Tartrate 50 mg 10/01/20 15:00 10/06/20 09:25 Metoprolol Tartrate 50 Mg Tab PO Not Given BID GANESH Oxycodone/Acetaminophen 1 tab 09/30/20 20:43 10/05/20 09:01 Oxycodone /Acetaminophen 5-325mg Tab PO 1 tab Q12H PRN Administration Pain, Moderate (4-6) Pantoprazole Sodium 40 mg 10/01/20 07:30 10/06/20 09:24 Pantoprazole 40 Mg Tab PO 40 mg QDAC GANESH Administration Risperidone 0.25 mg 10/01/20 11:00 10/06/20 09:26 Risperidone 0.25 Mg Tab PO Not Given BID GANESH Sodium Chloride 10 ml 09/30/20 22:00 10/06/20 09:26 Sodium Chloride 0.9% 10 Ml Flush Syringe IV 10 ml BID GANESH Administration Sodium Chloride 10 ml 09/30/20 20:43 Sodium Chloride 0.9% 10 Ml Flush Syringe IV PRN PRN LINE FLUSH Spironolactone 25 mg 10/01/20 10:00 10/06/20 09:25 Spironolactone 25 Mg Tab PO Not Given QDAY GANESH Trazodone HCl 50 mg 10/01/20 22:00 10/05/20 21:36 Trazodone 50 Mg Tab PO 50 mg QHS GANESH Administration Warfarin Sodium 7.5 mg 10/05/20 17:00 10/05/20 16:26 Warfarin 7.5 Mg Tab PO 7.5 mg DAILY@1700 [facility] Administration Protocol Nutrition/Malnutrition Assess - Dietary Evaluation Nutrition/Malnutrition Findings: Nutrition Notes Start: 10/02/20 11:05 Freq: Status: Active Protocol: Document 10/03/20 12:30 CW (Rec: 10/03/20 12:33 CW [id number]) Nutrition Notes Need for Assessment generated from: MD Order Initial or Follow up Brief Note Other Pertinent Diagnosis STEMI, alcohol dependence Current Diet Cardiac Subjective/Other Information MD consult for malnutrition. Pt already being followed by this RD team. Pt evaluated for malnutrion. Pt does not meet criteria for malnutrition. Note: Per aspen, low albumin in acute setting does NOT indicate nutritional status d/ t multiple factors affecting albumin other than nutrition. Will continue to montior as planned. Nutrition Intervention Follow-Up By: 10/06/20 Additional Comments FU for intakes and ONS tolerance
--- NOTE | 2020-10-06 11:46 | Progress Note ---
Assessment and Plan - Patient Problems (1) STEMI (ST elevation myocardial infarction) Current Visit: Yes Status: Acute Plan to address problem: Patient suffered an ST elevation anterior myocardial infarction due to thromboembolic event down the LAD. The source of embolism was likely the left ventricular cavity thrombus. When INR is 2.0 or greater, we will stop heparin, the patient will be managed with warfarin and Plavix. We will continue guideline directed medical therapy for underlying nonischemic cardiomyopathy. (2) Dilated cardiomyopathy Current Visit: Yes Status: Acute (3) Left ventricular apical thrombus Current Visit: Yes Status: Acute Subjective Date of service: 10/06/20 Principal diagnosis: STEMI Interval history: Patient is comfortable, no cardiac complaints. INR is still subtherapeutic, she was given 7.5 mg of warfarin yesterday. Hematocrit has remained stable at 25. Objective Vital Signs Temp Pulse Pulse Resp Resp BP Pulse Ox 10/06/20 09:47 80 18 10/06/20 09:46 100 10/06/20 09:26 80 103/73 10/06/20 09:25 80 103/73 10/06/20 08:20 18 98 10/06/20 08:13 98.0 F 80 20 103/73 91 10/06/20 03:53 97.8 F 67 16 101/73 100 10/05/20 23:06 98.0 F 43 L 16 127/89 97 10/05/20 22:00 16 98 10/05/20 20:35 96 10/05/20 20:00 89 10/05/20 19:34 98.2 F 94 H 18 125/94 100 10/05/20 16:33 98.1 F 91 H 20 129/96 92 10/05/20 11:45 125/95 - Physical Examination General: No Apparent Distress HEENT: Positive: PERRL Neck: Positive: trachea midline Cardiac: Positive: Reg Rate and Rhythm Lungs: Positive: Decreased Breath Sounds Neuro: Positive: Grossly Intact Abdomen: Positive: Soft Skin: Positive: Clear Incision: Cardiac Cath Site (right groin) Extremities: Absent: edema - Labs and Meds Cardiac Enzymes 10/06/20 Range/Units 04:57 AST 450 H (5-40) units/L Coagulation 10/06/20 Range/Units 04:57 PT 17.2 H (12.2-14.9) Sec. INR 1.35 H (0.87-1.13) CBC 10/06/20 Range/Units 04:57 Hgb 7.7 L (10.1-14.3) gm/dl Hct 25.6 L (30.3-42.9) % Comprehensive Metabolic Panel 10/06/20 Range/Units 04:57 Sodium 137 (137-145) mmol/L Potassium 4.3 (3.6-5.0) mmol/L Chloride 103.4 (98-107) mmol/L Carbon Dioxide 25 (22-30) mmol/L BUN 10 (7-17) mg/dL Creatinine 0.5 L (0.6-1.2) mg/dL Glucose 113 H (65-100) mg/dL Calcium 8.7 (8.4-10.2) mg/dL AST 450 H (5-40) units/L ALT 727 H (7-56) units/L Alkaline Phosphatase 149 H (35-129) units/L Total Protein 5.9 L (6.3-8.2) g/dL Albumin 3.2 L (3.9-5) g/dL
--- NOTE | 2020-10-06 12:57 | Gastroenterology Consultation ---
History of Present Illness - Reason for Consult Consult date: 10/06/20 elevated liver enzymes Requesting physician: JAZIEL SHAH - History of Present Illness This is a 50 yo female with pmh of CHF EF 20-25%, BUTCH, Bipolar, admitted for chest pain and found to have STEMI due to thromboembolic event. GI consulted for elevated LFTs. Noted to have AST 185 ALT 29 on admission and now trended up to AST 450 ALT 727 today. No prior h/o liver disease and no family hx of liver disease. She has occasional alcohol use and marijauna use. States she may had cocaine mixed marijauna prior to admission. Of note, she was seen in 03/2020 for BUTCH. EGD/colonoscopy showed gastritis and poor prep. Path from EGD showed H pylori. She did not follow up in clinic and unclear if she took antibiotics for H pylori. Medication list reviewed. Past History Past Medical History: other (See HPI) Past Surgical History: Social history: single, smoking Family history: diabetes, hypertension Medications and Allergies Allergies Allergy/AdvReac Type Severity Reaction Status Date / Time aspirin Allergy Swelling Verified 04/12/20 14:57 Home Medications Medication Instructions Recorded Confirmed Last Taken Type Aspirin [Adult Aspirin] 81 mg PO DAILY #30 tablet. 04/16/20 Unknown Rx AtorvaSTATin [Lipitor] 40 mg PO QHS #30 tab 04/16/20 Unknown Rx Pantoprazole [Protonix TAB] 40 mg PO QDAC #30 tablet 04/16/20 Unknown Rx Spironolactone [Aldactone] 25 mg PO QDAY #30 tablet 04/16/20 Unknown Rx carvediloL [Coreg] 6.25 mg PO BID #60 tablet 04/16/20 Unknown Rx lisinopriL [Zestril TAB] 5 mg PO QDAY #30 tablet 04/16/20 Unknown Rx Cyclobenzaprine [Flexeril] 10 mg PO TID PRN #20 tablet 08/31/20 Unknown Rx HYDROcodone/APAP 5-325 [[place] 1 each PO Q6HR PRN #10 tablet 08/31/20 Unknown Rx 5/325] Ibuprofen [Motrin 400 MG tab] 400 mg PO TID 5 Days #15 tablet 08/31/20 Unknown Rx Active Meds: Active Medications Acetaminophen (Acetaminophen 325 Mg Tab) 650 mg PO Q6H PRN PRN Reason: Pain MILD(1-3)/Fever >100.5/[place] Albuterol (Albuterol 2.5 Mg/3 Ml Nebu) 2.5 mg IH Q3HRT PRN PRN Reason: Shortness Of Breath Last Admin: 10/06/20 09:41 Dose: 2.5 mg Documented by: Atorvastatin Calcium (Atorvastatin 40 Mg Tab) 40 mg PO QHS [facility] Last Admin: 10/05/20 22:00 Dose: Not Given Documented by: Clopidogrel Bisulfate (Clopidogrel 75 Mg Tab) 75 mg PO QDAY [facility] Last Admin: 10/06/20 09:24 Dose: 75 mg Documented by: Cyclobenzaprine HCl (Cyclobenzaprine 10 Mg Tab) 10 mg PO TID PRN PRN Reason: Muscle Spasm Last Admin: 10/02/20 04:29 Dose: 10 mg Documented by: Folic Acid (Folic Acid 1 Mg Tab) 1 mg PO QDAY [facility] Last Admin: 10/06/20 09:23 Dose: 1 mg Documented by: Heparin Sodium (Porcine) (Heparin 10,000 Units/10 Ml Vial) 2,100 unit 40 unit/kg (2100 unit) IV Q6H PRN PRN Reason: Anti-Xa Assay < 0.1 units/ml Hydromorphone HCl (Hydromorphone 1 Mg/1 Ml Inj) 0.5 mg IV Q12H PRN PRN Reason: Pain , Severe (7-10) Last Admin: 10/05/20 21:36 Dose: 0.5 mg Documented by: Heparin Sodium/Sodium Chloride (Heparin/ 0.45% Nacl-25,000 Unit/500 Ml) 25,000 unit in 500 mls @ 15 mls/hr IV TITRATE [facility]; Protocol Last Admin: 10/04/20 20:57 Dose: 900 units/hr, 18 mls/hr Documented by: Lisinopril (Lisinopril 5 Mg Tab) 2.5 mg PO QDAY [facility] Last Admin: 10/06/20 09:26 Dose: Not Given Documented by: Lorazepam (Lorazepam 2 Mg/Ml Vial) 2 mg IV Q1HR PRN PRN Reason: CIWA-Ar 8-15 Metoprolol Tartrate (Metoprolol Tartrate 50 Mg Tab) 50 mg PO BID [facility] Last Admin: 10/06/20 09:25 Dose: Not Given Documented by: Oxycodone/Acetaminophen (Oxycodone /Acetaminophen 5-325mg Tab) 1 tab PO Q12H PRN PRN Reason: Pain, Moderate (4-6) Last Admin: 10/05/20 09:01 Dose: 1 tab Documented by: Pantoprazole Sodium (Pantoprazole 40 Mg Tab) 40 mg PO QDAC [facility] Last Admin: 10/06/20 09:24 Dose: 40 mg Documented by: Risperidone (Risperidone 0.25 Mg Tab) 0.25 mg PO BID [facility] Last Admin: 10/06/20 09:26 Dose: Not Given Documented by: Sodium Chloride (Sodium Chloride 0.9% 10 Ml Flush Syringe) 10 ml IV BID [facility] Last Admin: 10/06/20 09:26 Dose: 10 ml Documented by: Sodium Chloride (Sodium Chloride 0.9% 10 Ml Flush Syringe) 10 ml IV PRN PRN PRN Reason: LINE FLUSH Spironolactone (Spironolactone 25 Mg Tab) 25 mg PO QDAY [facility] Last Admin: 10/06/20 09:25 Dose: Not Given Documented by: Trazodone HCl (Trazodone 50 Mg Tab) 50 mg PO QHS [facility] Last Admin: 10/05/20 21:36 Dose: 50 mg Documented by: Warfarin Sodium (Warfarin 7.5 Mg Tab) 7.5 mg PO DAILY@1700 [facility]; Protocol Last Admin: 10/05/20 16:26 Dose: 7.5 mg Documented by: Review of Systems - Review of Systems All systems: negative Constitutional: no weight loss, no weight gain Eyes: no change in vision Ears, Nose, Throat: no decreased hearing Cardiovascular: chest pain Respiratory: cough Gastrointestinal: no abdominal pain, no nausea, no vomiting, no diarrhea, no constipation Neurological: weakness Endocrine: no cold intolerance Hematologic/Lymphatic: no easy bruising Allergic/Immunologic: no wheezing Exam - Constitutional Vital Signs: Temp Pulse Resp BP Pulse Ox 98.3 F 86 18 129/95 100 10/06/20 11:33 10/06/20 11:33 10/06/20 11:33 10/06/20 11:33 10/06/20 11:33 General appearance: no acute distress - EENT Eyes: EOM intact ENT: hearing intact - Respiratory Respiratory effort: normal - Cardiovascular Rhythm: regular Heart Sounds: Present: S1 & S2 - Gastrointestinal General gastrointestinal: Present: soft, non-tender, non-distended, normal bowel sounds - Integumentary Integumentary: Present: clear, warm - Neurologic Neurological: alert and oriented x3 - Labs CBC & Chem 7: 10/06/20 04:57 10/06/20 04:57 Lab Results: Laboratory Results - last 24 hr 10/05/20 10/06/20 10/06/20 17:12 04:57 04:57 Hgb 7.7 L Hct 25.6 L PT 17.2 H INR 1.35 H Heparin Anti-Xa Level 0.61 Sodium Potassium Chloride Carbon Dioxide Anion Gap BUN Creatinine Estimated GFR BUN/Creatinine Ratio Glucose Calcium Magnesium Total Bilirubin AST ALT Alkaline Phosphatase Total Protein Albumin Albumin/Globulin Ratio 10/06/20 04:57 Hgb Hct PT INR Heparin Anti-Xa Level Sodium 137 Potassium 4.3 Chloride 103.4 Carbon Dioxide 25 Anion Gap 13 BUN 10 Creatinine 0.5 L Estimated GFR > 60 BUN/Creatinine Ratio 20 Glucose 113 H Calcium 8.7 Magnesium 1.80 Total Bilirubin 0.30 AST 450 H ALT 727 H Alkaline Phosphatase 149 H Total Protein 5.9 L Albumin 3.2 L Albumin/Globulin Ratio 1.2 Assessment and Plan # Elevated liver enzymes - Noted to have AST 185 ALT 29 on admission and now trended up to AST 450 ALT 727 today. - ddx including ischemic vs hepatic congestion vs medication induced. - patient was on amiodarone, which was stopped with patient intolerance - Abdominal US pending. Rec - monitor LFTs - check INR - follow up abdominal US - avoid hepatic toxic agents # BUTCH - chronic anemia - EGD/colonoscopy in 03/2020 without source of bleeding. Path positive for H pylori. - unclear if treated for H pylori. - will need triple therapy as outpatient. would avoid new medication in the setting of newly elevated LFTs.
[2020-10-06 15:45] LABS: Hepatitis C Virus Antibody Non-Reactive (NonReactive)
[2020-10-06 15:53] LABS: Hepatitis B Surface Antigen Nonreactive (Negative)
[2020-10-06] MEDS: WARFARIN 7.5 MG TAB PO SCH (17:15)
--- NOTE | 2020-10-06 18:30 | Ultrasound Report ---
US abdomen complete INDICATION: Transaminitis/worsening LFTs COMPARISON: None. FINDINGS: Pancreas: Normal. Abdominal aorta: Normal. IVC: Normal. Liver: Normal. Gallbladder: No significant abnormality. Bile ducts: Normal. The common bile duct measures 3 mm. Kidneys: Normal. Spleen: Normal. There is no free fluid in the abdomen. Small quantity of right pleural fluid. IMPRESSION: No significant sonographic abnormality of the abdomen. Small right pleural effusion. Signer Name: Marcos Stafford MD Signed: 10/06/2020 6:26 PM Workstation Name: [id number]
[2020-10-06] MEDS: oxyCODONE /ACETAMINOPHEN 5-325MG TAB PO PRN (21:01)
[2020-10-06] MEDS: traZODone 50 MG TAB PO SCH (21:02)
[2020-10-07 05:13] LABS: INR 1.52 (0.87-1.13)
[2020-10-07] MEDS: PANTOPRAZOLE 40 MG TAB PO SCH (08:24)
[2020-10-07] MEDS: CLOPIDOGREL 75 MG TAB PO SCH (09:31)
[2020-10-07] MEDS: FOLIC ACID 1 MG TAB PO SCH (09:31)
[2020-10-07] MEDS: SPIRONOLACTONE 25 MG TAB PO SCH (09:32)
[2020-10-07] MEDS: risperiDONE 0.25 MG TAB PO SCH ×2 (09:33→22:05)
[2020-10-07] MEDS: LISINOPRIL 5 MG TAB PO SCH (09:35)
[2020-10-07] MEDS: METOPROLOL TARTRATE 50 MG TAB PO SCH ×3 (09:35→22:07)
[2020-10-07] MEDS: oxyCODONE /ACETAMINOPHEN 5-325MG TAB PO PRN ×2 (09:41→22:02)
--- NOTE | 2020-10-07 10:33 | Progress Note ---
Assessment and Plan - Patient Problems (1) STEMI (ST elevation myocardial infarction) Current Visit: Yes Status: Acute Plan to address problem: Patient suffered an ST elevation anterior myocardial infarction due to thromboembolic event down the LAD. The source of embolism was likely the left ventricular cavity thrombus. When INR is 2.0 or greater, we will stop heparin, the patient will be managed with warfarin and Plavix. We will continue guideline directed medical therapy for underlying nonischemic cardiomyopathy. (2) Dilated cardiomyopathy Current Visit: Yes Status: Acute Plan to address problem: We will continue guideline directed medical therapy for chronic systolic left ventricular failure. (3) Left ventricular apical thrombus Current Visit: Yes Status: Acute Plan to address problem: Continue warfarin, target INR 2.0-3.0. Chronic long-term anticoagulation is recommended. Subjective Date of service: 10/07/20 Principal diagnosis: STEMI Interval history: Patient comfortable, no cardiac complaints, INR of 1.52 shows progressive anticoagulation. Objective Vital Signs Temp Pulse Resp BP BP Pulse Ox 10/07/20 09:32 91 H 141/95 10/07/20 08:26 97 10/07/20 08:08 141/95 10/07/20 06:00 82 10/07/20 04:32 98.0 F 91 H 18 121/90 100 10/06/20 23:24 97.8 F 68 18 134/101 96 10/06/20 21:01 18 10/06/20 20:58 18 98 10/06/20 20:25 100 10/06/20 19:03 98.6 F 93 H 18 146/97 100 10/06/20 17:59 126/68 10/06/20 16:20 98.4 F 72 18 132/103 93 10/06/20 11:33 98.3 F 86 18 129/95 100 - Physical Examination General: No Apparent Distress HEENT: Positive: PERRL Neck: Positive: trachea midline Cardiac: Positive: Reg Rate and Rhythm Lungs: Positive: Decreased Breath Sounds Neuro: Positive: Grossly Intact Abdomen: Positive: Soft Skin: Positive: Clear Incision: Cardiac Cath Site (right groin) Extremities: Absent: edema - Labs and Meds Coagulation 10/07/20 Range/Units 03:36 PT 18.8 H (12.2-14.9) Sec. INR 1.52 H (0.87-1.13)
[2020-10-07] MEDS: ALBUTEROL 2.5 MG/3 ML NEBU IH PRN (10:42)
[2020-10-07] MEDS: HEPARIN/ 0.45% NACL DRIP 25,000 UNIT/500 ML BAG IV SCH (12:48)
--- NOTE | 2020-10-07 14:56 | Gastroenterology Progress Note ---
Assessment and Plan # Elevated liver enzymes - Noted to have AST 185 ALT 29 on admission and now trended up to AST 450 ALT 727 today. - ddx including ischemic vs hepatic congestion vs medication induced. - patient was on amiodarone, which was stopped with patient intolerance - Abdominal US with normal liver. Rec - monitor LFTs and INR. LFTs ordered but no labs done. - avoid hepatic toxic agents # BUTCH - chronic anemia - EGD/colonoscopy in 03/2020 without source of bleeding. Path positive for H pylori. - unclear if treated for H pylori. - will need triple therapy as outpatient. would avoid new medication in the setting of newly elevated LFTs. - will follow. Subjective Date of service: 10/07/20 Principal diagnosis: STEMI Interval history: Patient doing well. No Gi complaints. Objective - Constitutional Vitals: Temp Pulse Resp BP Pulse Ox 98.0 F 91 H 16 141/95 100 10/07/20 04:32 10/07/20 09:32 10/07/20 09:00 10/07/20 09:32 10/07/20 10:40 General appearance: no acute distress - EENT Eyes: EOM intact ENT: hearing intact - Respiratory Respiratory effort: normal - Cardiovascular Rhythm: regular Heart Sounds: Present: S1 & S2 - Gastrointestinal General gastrointestinal: Present: soft, non-tender, non-distended, normal bowel sounds - Integumentary Integumentary: Present: clear, warm - Neurologic Neurological: alert and oriented x3 - Labs CBC & Chem 7: 10/06/20 04:57 10/06/20 04:57 Labs: Laboratory Results - last 24 hr 10/06/20 10/06/20 10/07/20 14:21 15:30 03:36 PT 18.8 H INR 1.52 H Heparin Anti-Xa Level 0.54 Hepatitis A IgM Ab Non-reactive Hep Bs Antigen Nonreactive Hep B Core IgM Ab Non-reactive Hepatitis C Antibody Non-reactive
[2020-10-07] MEDS: WARFARIN 7.5 MG TAB PO SCH (17:31)
[2020-10-07] MEDS: HYDROmorphone 1 MG/1 ML INJ IV PRN (17:31)
[2020-10-07 17:33] LABS: Alanine Aminotransferase 449 units/L (7-56); Blood Urea Nitrogen 9 mg/dL (7-17); Calcium 8.5 mg/dL (8.4-10.2); Hemolysis Index 4
[2020-10-07 17:42] LABS: BUN/Creatinine Ratio 15
--- NOTE | 2020-10-07 20:07 | Progress Note ---
Assessment and Plan Assessment and plan: --COVID-19 negative --LV thrombus on echocardiogram ; INR 1.5 today Current Visit: Yes Status: Acute Continue heparin drip, Coumadin Target INR 2-3 --Acute systolic congestive heart failure ; EF 25% Current Visit: Yes Status: Acute Continue antifailure medications, heparin drip due to mural thrombus Noted output monitoring, fluid restriction --Transaminitis; Probably secondary to congestion of the liver due to cardiomyopathy with ejection fraction of 25% LFTs are trending down negative hepatitis panel, abdominal ultrasound, negative for acute abnormality GI following --Acute anterior wall STEMI (ST elevation myocardial infarction) Current Visit: Yes Status: Acute Cardiology evaluated s/p emergent cardiac catheterization . angiogram showed a distal thrombotic occlusion of the LAD just after the apex. Right and left coronary arteries were otherwise angiographically normal. s/p export thrombectomy and some distal plain-old balloon angioplasty. Today patient feels slightly better, hemodynamically stable Patient was not tolerating amiodarone and isosorbide[had fatigue and generalized weakness] These meds were discontinued by cardiology, patient feels better -- Nicotine dependence Current Visit: Yes Status: Acute Smoking cessation counseling, nicotine patch as needed --Alcohol dependence Current Visit: Yes Status: Acute [facility] protocol: Thiamine, folic acid, multivitamin daily, supportive care. Alcohol rehabilitation upon discharge --History of bipolar disorder Current Visit: Yes Status: Acute Continue current psych medications Follow psych evaluation and recommendations --DVT prophylaxis Current Visit: No Status: Acute Patient is on heparin drip and Coumadin for LV thrombus Monitor INR, when therapeutic goal is reached between 2 and 3, heparin will be discontinued We will closely monitor the patient and adjust management as needed Transition Of Care Specialist recommendations noted and appreciated Brief history and hospital course 50 YO Female with Asthma, Nicotine Dependence, ETOH Dependence, Bipolar Disorder was admitted through emergency room with chest pain Initial evaluation is consistent with ST elevation NC, patient had emergency cardiac catheterization, revealed distal thrombotic occlusion of LAD just after the apex,s/p thrombectomy, and balloon angioplasty. LV thrombus on echocardiogram, started on heparin drip and Coumadin, with target INR between 2 and 3, to DC heparin drip when INR reaches its target level,, patient is on multiple cardiac medications Patient also has bipolar disorder, on psych medications 10/04/2020; patient on heparin and Coumadin INR remains subtherapeutic, patient continues to have intermittent shortness of breath On all appropriate cardiac medications, cardiology recommendations noted and appreciated Patient will be discharged when she reaches therapeutic INR, and when medically stable And when cleared by cardiology 10/05/2020; on heparin drip and Coumadin, subtherapeutic INR 1.14 Therapeutic goal 2-3, cardiology recommendations noted and appreciated Amiodarone and isosorbide was discontinued by cardiology as patient was not tolerating 10/06/2020; patient's INR remains subtherapeutic at 1.3/goal 2-3 Also worsening LFTs, probably due to liver congestion due to his cardiomyopathy However we will check abdominal ultrasound, acute hepatitis panel, GI consult if needed 10/07/2020; INR subtherapeutic but improved to 1.5 Continue heparin and Coumadin until INR is therapeutic between 2 and 3 LFTs trending down History Interval history: I have seen and examined the patient at the bedside Patient feels slightly better Denies chest pain mild shortness of breath Vital signs noted Hospitalist Physical - Constitutional Vitals: Temp Pulse Resp BP Pulse Ox 98.0 F 91 H 16 141/95 100 10/07/20 04:32 10/07/20 09:32 10/07/20 09:00 10/07/20 09:32 10/07/20 10:40 General appearance: Present: no acute distress, well-nourished - EENT Eyes: Present: PERRL, EOM intact - Neck Neck: Present: supple, normal ROM - Respiratory Respiratory effort: normal Respiratory: bilateral: diminished, rales, negative: rhonchi, wheezing - Cardiovascular Rhythm: regular Heart Sounds: Present: S1 & S2 - Extremities Extremities: no ischemia, No edema - Abdominal General gastrointestinal: soft, non-tender, non-distended, normal bowel sounds - Integumentary Integumentary: Present: clear, warm - Psychiatric Psychiatric: appropriate mood/affect, cooperative - Neurologic Neurologic: CNII-XII intact, moves all extremities HEART Score - HEART Score EKG: Non-specific Age: 45-65 Risk factors: 1-2 risk factors Troponin: Troponin T 3.120 ng/mL (0.00-0.029) H* 10/01/20 02:15 Troponin: > 3x normal limit Results - Labs CBC & Chem 7: 10/06/20 04:57 10/07/20 16:54 Labs: Laboratory Last Values WBC 6.2 K/mm3 (4.5-11.0) 10/03/20 05:01 RBC 3.49 M/mm3 (3.65-5.03) L 10/03/20 05:01 Hgb 7.7 gm/dl (10.1-14.3) L 10/06/20 04:57 Hct 25.6 % (30.3-42.9) L 10/06/20 04:57 MCV 72 fl (79-97) L 10/03/20 05:01 MCH 22 pg (28-32) L 10/03/20 05:01 MCHC 30 % (30-34) 10/03/20 05:01 RDW 20.8 % (13.2-15.2) H 10/03/20 05:01 Plt Count 295 K/mm3 (140-440) 10/03/20 05:01 Lymph % (Auto) 27.7 % (13.4-35.0) 10/03/20 05:01 [place] % (Auto) 6.2 % (0.0-7.3) 10/03/20 05:01 Eos % (Auto) 1.6 % (0.0-4.3) 10/03/20 05:01 Baso % (Auto) 0.8 % (0.0-1.8) 10/03/20 05:01 Lymph # (Auto) 1.7 K/mm3 (1.2-5.4) 10/03/20 05:01 [place] # (Auto) 0.4 K/mm3 (0.0-0.8) 10/03/20 05:01 Eos # (Auto) 0.1 K/mm3 (0.0-0.4) 10/03/20 05:01 Baso # (Auto) 0.0 K/mm3 (0.0-0.1) 10/03/20 05:01 Add Manual Diff Complete 10/01/20 02:15 Total Counted 100 10/01/20 02:15 Seg Neutrophils % 63.7 % (40.0-70.0) 10/03/20 05:01 Seg Neuts % (Manual) 85.0 % (40.0-70.0) H 10/01/20 02:15 Lymphocytes % (Manual) 12.0 % (13.4-35.0) L 10/01/20 02:15 Monocytes % (Manual) 3.0 % (0.0-7.3) 10/01/20 02:15 Eosinophils % (Manual) 3.0 % (0.0-4.3) 09/30/20 19:30 Nucleated RBC % Not Reportable 10/01/20 02:15 Seg Neutrophils # 4.0 K/mm3 (1.8-7.7) 10/03/20 05:01 Seg Neutrophils # Man 6.9 K/mm3 (1.8-7.7) 10/01/20 02:15 Band Neutrophils # 0.0 K/mm3 10/01/20 02:15 Lymphocytes # (Manual) 1.0 K/mm3 (1.2-5.4) L 10/01/20 02:15 Abs React Lymphs (Man) 0.0 K/mm3 10/01/20 02:15 Monocytes # (Manual) 0.2 K/mm3 (0.0-0.8) 10/01/20 02:15 Eosinophils # (Manual) 0.0 K/mm3 (0.0-0.4) 10/01/20 02:15 Basophils # (Manual) 0.0 K/mm3 (0.0-0.1) 10/01/20 02:15 Metamyelocytes # 0.0 K/mm3 10/01/20 02:15 Myelocytes # 0.0 K/mm3 10/01/20 02:15 Promyelocytes # 0.0 K/mm3 10/01/20 02:15 Blast Cells # 0.0 K/mm3 10/01/20 02:15 WBC Morphology Not Reportable 10/01/20 02:15 Hypersegmented Neuts Not Reportable 10/01/20 02:15 Hyposegmented Neuts Not Reportable 10/01/20 02:15 Hypogranular Neuts Not Reportable 10/01/20 02:15 Smudge Cells Not Reportable 10/01/20 02:15 Toxic Granulation Not Reportable 10/01/20 02:15 Toxic Vacuolation Not Reportable 10/01/20 02:15 Dohle Bodies Not Reportable 10/01/20 02:15 Pelger-Huet Anomaly Not Reportable 10/01/20 02:15 Luz Maria Rods Not Reportable 10/01/20 02:15 Platelet Estimate Consistent w auto 10/01/20 02:15 Clumped Platelets Not Reportable 10/01/20 02:15 Plt Clumps, EDTA Not Reportable 10/01/20 02:15 Large Platelets Not Reportable 10/01/20 02:15 Giant Platelets Not Reportable 10/01/20 02:15 Platelet Satelliting Not Reportable 10/01/20 02:15 Plt Morphology Comment Not Reportable 10/01/20 02:15 RBC Morphology Not Reportable 10/01/20 02:15 Dimorphic RBCs Not Reportable 10/01/20 02:15 Polychromasia Not Reportable 10/01/20 02:15 Hypochromasia 2+ 10/01/20 02:15 Poikilocytosis 1+ 10/01/20 02:15 Anisocytosis 1+ 10/01/20 02:15 Microcytosis Not Reportable 10/01/20 02:15 Macrocytosis Not Reportable 10/01/20 02:15 Spherocytes Not Reportable 10/01/20 02:15 Pappenheimer Bodies Not Reportable 10/01/20 02:15 Sickle Cells Not Reportable 10/01/20 02:15 Target Cells Not Reportable 10/01/20 02:15 Tear Drop Cells Rare 10/01/20 02:15 Ovalocytes Few 10/01/20 02:15 Helmet Cells Not Reportable 10/01/20 02:15 Martin-[place] Bodies Not Reportable 10/01/20 02:15 [place] Rings Not Reportable 10/01/20 02:15 Marilee Cells Not Reportable 10/01/20 02:15 Bite Cells Not Reportable 10/01/20 02:15 Crenated Cell Not Reportable 10/01/20 02:15 Elliptocytes Few 10/01/20 02:15 Acanthocytes (Spur) Not Reportable 10/01/20 02:15 Rouleaux Not Reportable 10/01/20 02:15 Hemoglobin C Crystals Not Reportable 10/01/20 02:15 Schistocytes Rare 10/01/20 02:15 Malaria parasites Not Reportable 10/01/20 02:15 Mamadou Bodies Not Reportable 10/01/20 02:15 Hem Pathologist Commnt No 10/01/20 02:15 PT 18.8 Sec. (12.2-14.9) H 10/07/20 03:36 INR 1.52 (0.87-1.13) H 10/07/20 03:36 APTT 189.0 Sec. (24.2-36.6) H* 10/01/20 00:12 Heparin Anti-Xa Level 0.30 U.I./ml (0.3-0.7) 10/07/20 16:54 Sodium 138 mmol/L (137-145) 10/07/20 16:54 Potassium 3.6 mmol/L (3.6-5.0) 10/07/20 16:54 Chloride 103.7 mmol/L (98-107) 10/07/20 16:54 Carbon Dioxide 23 mmol/L (22-30) 10/07/20 16:54 Anion Gap 15 mmol/L 10/07/20 16:54 BUN 9 mg/dL (7-17) 10/07/20 16:54 Creatinine 0.6 mg/dL (0.6-1.2) 10/07/20 16:54 Estimated GFR > 60 ml/min 10/07/20 16:54 BUN/Creatinine Ratio 15 % 10/07/20 16:54 Glucose 109 mg/dL (65-100) H 10/07/20 16:54 Calcium 8.5 mg/dL (8.4-10.2) 10/07/20 16:54 Magnesium 1.80 mg/dL (1.7-2.3) 10/06/20 04:57 Total Bilirubin 0.30 mg/dL (0.1-1.2) 10/07/20 16:54 AST 157 units/L (5-40) H 10/07/20 16:54 ALT 449 units/L (7-56) H 10/07/20 16:54 Alkaline Phosphatase 157 units/L (35-129) H 10/07/20 16:54 Total Creatine Kinase 1510 units/L (30-135) H 10/01/20 02:15 CK-MB (CK-2) 190.6 ng/mL (0.0-4.0) H 10/01/20 02:15 CK-MB (CK-2) Rel Index 12.6 (0-4) H 10/01/20 02:15 Troponin T 3.120 ng/mL (0.00-0.029) H* 10/01/20 02:15 Total Protein 5.5 g/dL (6.3-8.2) L 10/07/20 16:54 Albumin 3.0 g/dL (3.9-5) L 10/07/20 16:54 Albumin/Globulin Ratio 1.2 % 10/07/20 16:54 Triglycerides 151 mg/dL (2-149) H 09/30/20 19:30 Cholesterol 177 mg/dL (50-199) 09/30/20 19:30 LDL Cholesterol Direct 89 mg/dL (50-130) 09/30/20 19:30 HDL Cholesterol 73 mg/dL (40-59) H 09/30/20 19:30 Cholesterol/HDL Ratio 2.42 % 09/30/20 19:30 Coronavirus (PCR) Negative (Negative) 10/01/20 08:09 Hepatitis A IgM Ab Non-reactive (NonReactive) 10/06/20 14:21 Hep Bs Antigen Nonreactive (Negative) 10/06/20 14:21 Hep B Core IgM Ab Non-reactive (NonReactive) 10/06/20 14:21 Hepatitis C Antibody Non-reactive (NonReactive) 10/06/20 14:21 Blood Type O POSITIVE 09/30/20 19:30 Antibody Screen Negative 09/30/20 19:30 Bethea/IV: Voiding Method Toilet Active Medications - Current Medications Current Medications: Generic Name Dose Route Start Last Admin Trade Name Freq PRN Reason Stop Dose Admin Acetaminophen 650 mg 09/30/20 20:43 Acetaminophen 325 Mg Tab PO Q6H PRN Pain MILD(1-3)/Fever >100.5/[place] Albuterol 2.5 mg 09/30/20 20:43 10/07/20 10:42 Albuterol 2.5 Mg/3 Ml Nebu IH 2.5 mg Q3HRT PRN Administration Shortness Of Breath Atorvastatin Calcium 40 mg 09/30/20 22:00 10/06/20 21:03 Atorvastatin 40 Mg Tab PO Not Given QHS GANESH Clopidogrel Bisulfate 75 mg 10/03/20 10:00 10/07/20 09:31 Clopidogrel 75 Mg Tab PO 75 mg QDAY GANESH Administration Cyclobenzaprine HCl 10 mg 09/30/20 20:45 10/02/20 04:29 Cyclobenzaprine 10 Mg Tab PO 10 mg TID PRN Administration Muscle Spasm Folic Acid 1 mg 10/01/20 10:00 10/07/20 09:31 Folic Acid 1 Mg Tab PO 1 mg QDAY GANESH Administration Heparin Sodium (Porcine) 2,100 unit 09/30/20 20:55 Heparin 10,000 Units/10 Ml Vial 40 unit/kg (2100 unit) IV Q6H PRN Anti-Xa Assay < 0.1 units/ml Hydromorphone HCl 0.5 mg 09/30/20 20:43 10/07/20 17:31 Hydromorphone 1 Mg/1 Ml Inj IV 0.5 mg Q12H PRN Administration Pain , Severe (7-10) Heparin Sodium/Sodium Chloride 25,000 unit in 500 mls @ 15 mls/hr 09/30/20 20:00 10/07/20 19:14 Heparin/ 0.45% Nacl-25,000 Unit/500 Ml IV 950 units/hr TITRATE GANESH 19 mls/hr Titration Protocol 750 UNITS/HR Lisinopril 2.5 mg 10/03/20 10:00 10/07/20 09:35 Lisinopril 5 Mg Tab PO Not Given QDAY GANESH Lorazepam 2 mg 09/30/20 20:54 Lorazepam 2 Mg/Ml Vial IV Q1HR PRN CIWA-Ar 8-15 Metoprolol Tartrate 50 mg 10/01/20 15:00 10/07/20 09:35 Metoprolol Tartrate 50 Mg Tab PO Not Given BID GANESH Oxycodone/Acetaminophen 1 tab 09/30/20 20:43 10/07/20 09:41 Oxycodone /Acetaminophen 5-325mg Tab PO 1 tab Q12H PRN Administration Pain, Moderate (4-6) Pantoprazole Sodium 40 mg 10/01/20 07:30 10/07/20 08:24 Pantoprazole 40 Mg Tab PO Not Given QDAC GANESH Risperidone 0.25 mg 10/01/20 11:00 10/07/20 09:33 Risperidone 0.25 Mg Tab PO 0.25 mg BID GANESH Administration Sodium Chloride 10 ml 09/30/20 22:00 10/07/20 09:35 Sodium Chloride 0.9% 10 Ml Flush Syringe IV 10 ml BID GANESH Administration Sodium Chloride 10 ml 09/30/20 20:43 Sodium Chloride 0.9% 10 Ml Flush Syringe IV PRN PRN LINE FLUSH Spironolactone 25 mg 10/01/20 10:00 10/07/20 09:32 Spironolactone 25 Mg Tab PO 25 mg QDAY GANESH Administration Trazodone HCl 50 mg 10/01/20 22:00 10/06/20 21:02 Trazodone 50 Mg Tab PO 50 mg QHS GANESH Administration Warfarin Sodium 7.5 mg 10/05/20 17:00 10/07/20 17:31 Warfarin 7.5 Mg Tab PO 7.5 mg DAILY@1700 GANESH Administration Protocol Nutrition/Malnutrition Assess - Dietary Evaluation Nutrition/Malnutrition Findings: Nutrition Notes Start: 10/02/20 11:05 Freq: Status: Active Protocol: Document 10/06/20 11:39 (Rec: 10/06/20 11:45 [email or web address]) Nutrition Notes Initial or Follow up Reassessment Current Diagnosis Heart Failure Other Pertinent Diagnosis STEMI, alcohol dependence Current Diet Cardiac Labs/Tests reviewed Pertinent Medications reviewed Height 5 ft 3 in Weight 61.5 kg [place] Body Weight (kg) 52.27 BMI 24.0 Weight Status Appropriate Subjective/Other Information Pt with yumiko ONS at bedside . She drinks them rarely. She states she eats almost all of her meals. She didn't eat breakfast yet but stated she will soon. Percent of energy/protein needs met: 100%/100% Burn Absent Trauma Absent Current % PO Good (75-100%) Minimum of two criteria No Energy Intake (non-severe) <75% Estimated Energy Requirement >7 days #2 Nutrition Diagnosis Food and nutrition-related knowledge deficit As Evidenced by Signs and Symptoms pt had no questions Diagnosis Progress(for reassessment Resolved documentation) #1 Nutrition Diagnosis Inadequate oral intake As Evidenced by Signs and Symptoms pt eating 90% of meals Diagnosis Progress(for reassessment Improved documentation) Is patient on ventilator? No Is Patient Ambulatory and/or Out of Bed No REE-([facility]-confined to bed) 1443.108 Calculation Used for Recommendations [facility] Additional Notes Protein: (0.8-1g/kg) 47-59g Fluid: 1 ml/kcal Nutrition Intervention Change Diet Order: continue Add Supplement/Snack (indicate name/kcal d/c /protein ) Goal #1 Meet at least 75% of energy and protein needs via PO and ONS Follow-Up By: 10/09/20 Additional Comments F/u: stable intakes
[2020-10-07] MEDS: traZODone 50 MG TAB PO SCH (22:03)
[2020-10-08 06:55] LABS: Hematocrit 24.2 % (30.3-42.9); Hemoglobin 7.2 gm/dl (10.1-14.3)
[2020-10-08 07:03] LABS: INR 2.21 (0.87-1.13)
--- NOTE | 2020-10-08 09:11 | Progress Note ---
Assessment and Plan Acute anterior [place] s/p POBA and manual thrombectomy of a distal thrombotic occlusion of the LAD just after the apex. ASA allergy Transient VT Hx of NICMP 03/2020 LHC: normal coronaries, EF 25-30%. Chronic Anemia Poly-substance abuse Echocardiogram shows a severe dilated cardiomyopathy, ejection fraction 25%. Most significantly, there is a large mural thrombus in the distal septal wall and apex, with a broad base and mobile peduncle. The LV thrombus is the likely source of the patient's LAD thrombosis. Recommendations: We discontinue IV heparin and Plavix. Continue warfarin therapy, as directed, for long-term oral anticoagulation, target INR 2-3. Warfarin therapy will have to be managed judiciously due to chronic anemia and prior GI bleed. Stable cardiac coreas for discharge. Subjective Date of service: 10/08/20 Principal diagnosis: STEMI Interval history: Patient has no cardiac complaints. Denies chest pain. The patients current hematocrit is 24.2. INR today is 2.21. Both Plavix and heparin will be discontinued. Objective Vital Signs Temp Pulse Resp BP Pulse Ox 10/08/20 07:22 98.6 F 84 18 120/90 100 10/08/20 06:00 83 10/08/20 03:54 98.0 F 83 18 117/90 99 10/07/20 23:22 98.0 F 77 18 107/78 98 10/07/20 22:07 94 H 140/90 10/07/20 22:00 96 10/07/20 19:44 98.1 F 18 140/90 10/07/20 18:00 97 H 10/07/20 10:40 100 10/07/20 09:32 91 H 141/95 - Physical Examination General: No Apparent Distress HEENT: Positive: PERRL Neck: Positive: trachea midline Cardiac: Positive: Reg Rate and Rhythm Lungs: Positive: Decreased Breath Sounds Neuro: Positive: Grossly Intact Abdomen: Positive: Soft Extremities: Absent: edema - Labs and Meds Cardiac Enzymes 10/07/20 Range/Units 16:54 AST 157 H (5-40) units/L Coagulation 10/08/20 Range/Units 04:33 PT 24.9 H (12.2-14.9) Sec. INR 2.21 H (0.87-1.13) CBC 10/08/20 Range/Units 04:33 Hgb 7.2 L (10.1-14.3) gm/dl Hct 24.2 L (30.3-42.9) % Comprehensive Metabolic Panel 10/07/20 Range/Units 16:54 Sodium 138 (137-145) mmol/L Potassium 3.6 (3.6-5.0) mmol/L Chloride 103.7 (98-107) mmol/L Carbon Dioxide 23 (22-30) mmol/L BUN 9 (7-17) mg/dL Creatinine 0.6 (0.6-1.2) mg/dL Glucose 109 H (65-100) mg/dL Calcium 8.5 (8.4-10.2) mg/dL AST 157 H (5-40) units/L ALT 449 H (7-56) units/L Alkaline Phosphatase 157 H (35-129) units/L Total Protein 5.5 L (6.3-8.2) g/dL Albumin 3.0 L (3.9-5) g/dL
[2020-10-08] MEDS: FOLIC ACID 1 MG TAB PO SCH (11:15)
[2020-10-08] MEDS: METOPROLOL TARTRATE 50 MG TAB PO SCH (11:15)
[2020-10-08] MEDS: LISINOPRIL 5 MG TAB PO SCH (11:16)
[2020-10-08] MEDS: oxyCODONE /ACETAMINOPHEN 5-325MG TAB PO PRN (11:16)
[2020-10-08] MEDS: SPIRONOLACTONE 25 MG TAB PO SCH (11:16)
[2020-10-08] MEDS: PANTOPRAZOLE 40 MG TAB PO SCH (11:17)
[2020-10-08] MEDS: risperiDONE 0.25 MG TAB PO SCH (11:18)
[2020-10-08] MEDS: CLOPIDOGREL 75 MG TAB PO SCH (11:18)
[2020-10-08 12:55] VITALS: BP 125/84
--- NOTE | 2020-10-08 15:13 | Progress Note ---
Assessment and Plan Assessment and plan: --COVID-19 negative --LV thrombus on echocardiogram ; INR 1.5 today Current Visit: Yes Status: Acute Continue heparin drip, Coumadin Target INR 2-3 --Acute systolic congestive heart failure ; EF 25% Current Visit: Yes Status: Acute Continue antifailure medications, heparin drip due to mural thrombus Noted output monitoring, fluid restriction --Transaminitis; Probably secondary to congestion of the liver due to cardiomyopathy with ejection fraction of 25% LFTs are trending down negative hepatitis panel, abdominal ultrasound, negative for acute abnormality GI following --Acute anterior wall STEMI (ST elevation myocardial infarction) Current Visit: Yes Status: Acute Cardiology evaluated s/p emergent cardiac catheterization . angiogram showed a distal thrombotic occlusion of the LAD just after the apex. Right and left coronary arteries were otherwise angiographically normal. s/p export thrombectomy and some distal plain-old balloon angioplasty. Today patient feels slightly better, hemodynamically stable Patient was not tolerating amiodarone and isosorbide[had fatigue and generalized weakness] These meds were discontinued by cardiology, patient feels better -- Nicotine dependence Current Visit: Yes Status: Acute Smoking cessation counseling, nicotine patch as needed --Alcohol dependence Current Visit: Yes Status: Acute CIWA protocol: Thiamine, folic acid, multivitamin daily, supportive care. Alcohol rehabilitation upon discharge --History of bipolar disorder Current Visit: Yes Status: Acute Continue current psych medications Follow psych evaluation and recommendations --DVT prophylaxis Current Visit: No Status: Acute Patient is on heparin drip and Coumadin for LV thrombus Monitor INR, when therapeutic goal is reached between 2 and 3, heparin will be discontinued Hospitalist Physical - Constitutional Vitals: Temp Pulse Resp BP Pulse Ox 98.8 F 89 18 125/84 100 10/08/20 12:07 10/08/20 12:07 10/08/20 12:07 10/08/20 12:07 10/08/20 12:07 General appearance: Present: no acute distress, well-nourished HEART Score - HEART Score EKG: Non-specific Age: 45-65 Risk factors: 1-2 risk factors Troponin: Troponin T 3.120 ng/mL (0.00-0.029) H* 10/01/20 02:15 Troponin: > 3x normal limit Results - Labs CBC & Chem 7: 10/08/20 04:33 10/07/20 16:54 Labs: Laboratory Last Values WBC 6.2 K/mm3 (4.5-11.0) 10/03/20 05:01 RBC 3.49 M/mm3 (3.65-5.03) L 10/03/20 05:01 Hgb 7.2 gm/dl (10.1-14.3) L 10/08/20 04:33 Hct 24.2 % (30.3-42.9) L 10/08/20 04:33 MCV 72 fl (79-97) L 10/03/20 05:01 MCH 22 pg (28-32) L 10/03/20 05:01 MCHC 30 % (30-34) 10/03/20 05:01 RDW 20.8 % (13.2-15.2) H 10/03/20 05:01 Plt Count 295 K/mm3 (140-440) 10/03/20 05:01 Lymph % (Auto) 27.7 % (13.4-35.0) 10/03/20 05:01 Ce[place] % (Auto) 6.2 % (0.0-7.3) 10/03/20 05:01 Eos % (Auto) 1.6 % (0.0-4.3) 10/03/20 05:01 Baso % (Auto) 0.8 % (0.0-1.8) 10/03/20 05:01 Lymph # (Auto) 1.7 K/mm3 (1.2-5.4) 10/03/20 05:01 Ce[place] # (Auto) 0.4 K/mm3 (0.0-0.8) 10/03/20 05:01 Eos # (Auto) 0.1 K/mm3 (0.0-0.4) 10/03/20 05:01 Baso # (Auto) 0.0 K/mm3 (0.0-0.1) 10/03/20 05:01 Add Manual Diff Complete 10/01/20 02:15 Total Counted 100 10/01/20 02:15 Seg Neutrophils % 63.7 % (40.0-70.0) 10/03/20 05:01 Seg Neuts % (Manual) 85.0 % (40.0-70.0) H 10/01/20 02:15 Lymphocytes % (Manual) 12.0 % (13.4-35.0) L 10/01/20 02:15 Monocytes % (Manual) 3.0 % (0.0-7.3) 10/01/20 02:15 Eosinophils % (Manual) 3.0 % (0.0-4.3) 09/30/20 19:30 Nucleated RBC % Not Reportable 10/01/20 02:15 Seg Neutrophils # 4.0 K/mm3 (1.8-7.7) 10/03/20 05:01 Seg Neutrophils # Man 6.9 K/mm3 (1.8-7.7) 10/01/20 02:15 Band Neutrophils # 0.0 K/mm3 10/01/20 02:15 Lymphocytes # (Manual) 1.0 K/mm3 (1.2-5.4) L 10/01/20 02:15 Abs React Lymphs (Man) 0.0 K/mm3 10/01/20 02:15 Monocytes # (Manual) 0.2 K/mm3 (0.0-0.8) 10/01/20 02:15 Eosinophils # (Manual) 0.0 K/mm3 (0.0-0.4) 10/01/20 02:15 Basophils # (Manual) 0.0 K/mm3 (0.0-0.1) 10/01/20 02:15 Metamyelocytes # 0.0 K/mm3 10/01/20 02:15 Myelocytes # 0.0 K/mm3 10/01/20 02:15 Promyelocytes # 0.0 K/mm3 10/01/20 02:15 Blast Cells # 0.0 K/mm3 10/01/20 02:15 WBC Morphology Not Reportable 10/01/20 02:15 Hypersegmented Neuts Not Reportable 10/01/20 02:15 Hyposegmented Neuts Not Reportable 10/01/20 02:15 Hypogranular Neuts Not Reportable 10/01/20 02:15 Smudge Cells Not Reportable 10/01/20 02:15 Toxic Granulation Not Reportable 10/01/20 02:15 Toxic Vacuolation Not Reportable 10/01/20 02:15 Dohle Bodies Not Reportable 10/01/20 02:15 Pelger-Huet Anomaly Not Reportable 10/01/20 02:15 Luz Maria Rods Not Reportable 10/01/20 02:15 Platelet Estimate Consistent w auto 10/01/20 02:15 Clumped Platelets Not Reportable 10/01/20 02:15 Plt Clumps, EDTA Not Reportable 10/01/20 02:15 Large Platelets Not Reportable 10/01/20 02:15 Giant Platelets Not Reportable 10/01/20 02:15 Platelet Satelliting Not Reportable 10/01/20 02:15 Plt Morphology Comment Not Reportable 10/01/20 02:15 RBC Morphology Not Reportable 10/01/20 02:15 Dimorphic RBCs Not Reportable 10/01/20 02:15 Polychromasia Not Reportable 10/01/20 02:15 Hypochromasia 2+ 10/01/20 02:15 Poikilocytosis 1+ 10/01/20 02:15 Anisocytosis 1+ 10/01/20 02:15 Microcytosis Not Reportable 10/01/20 02:15 Macrocytosis Not Reportable 10/01/20 02:15 Spherocytes Not Reportable 10/01/20 02:15 Pappenheimer Bodies Not Reportable 10/01/20 02:15 Sickle Cells Not Reportable 10/01/20 02:15 Target Cells Not Reportable 10/01/20 02:15 Tear Drop Cells Rare 10/01/20 02:15 Ovalocytes Few 10/01/20 02:15 Helmet Cells Not Reportable 10/01/20 02:15 [place] Bodies Not Reportable 10/01/20 02:15 [place] Rings Not Reportable 10/01/20 02:15 [place] Cells Not Reportable 10/01/20 02:15 Bite Cells Not Reportable 10/01/20 02:15 Crenated Cell Not Reportable 10/01/20 02:15 Elliptocytes Few 10/01/20 02:15 Acanthocytes (Spur) Not Reportable 10/01/20 02:15 Rouleaux Not Reportable 10/01/20 02:15 Hemoglobin C Crystals Not Reportable 10/01/20 02:15 Schistocytes Rare 10/01/20 02:15 Malaria parasites Not Reportable 10/01/20 02:15 Mamadou Bodies Not Reportable 10/01/20 02:15 Hem Pathologist Commnt No 10/01/20 02:15 PT 24.9 Sec. (12.2-14.9) H 10/08/20 04:33 INR 2.21 (0.87-1.13) H 10/08/20 04:33 APTT 189.0 Sec. (24.2-36.6) H* 10/01/20 00:12 Heparin Anti-Xa Level 0.43 U.I./ml (0.3-0.7) 10/08/20 01:02 Sodium 138 mmol/L (137-145) 10/07/20 16:54 Potassium 3.6 mmol/L (3.6-5.0) 10/07/20 16:54 Chloride 103.7 mmol/L (98-107) 10/07/20 16:54 Carbon Dioxide 23 mmol/L (22-30) 10/07/20 16:54 Anion Gap 15 mmol/L 10/07/20 16:54 BUN 9 mg/dL (7-17) 10/07/20 16:54 Creatinine 0.6 mg/dL (0.6-1.2) 10/07/20 16:54 Estimated GFR > 60 ml/min 10/07/20 16:54 BUN/Creatinine Ratio 15 % 10/07/20 16:54 Glucose 109 mg/dL (65-100) H 10/07/20 16:54 Calcium 8.5 mg/dL (8.4-10.2) 10/07/20 16:54 Magnesium 1.80 mg/dL (1.7-2.3) 10/06/20 04:57 Total Bilirubin 0.30 mg/dL (0.1-1.2) 10/07/20 16:54 AST 157 units/L (5-40) H 10/07/20 16:54 ALT 449 units/L (7-56) H 10/07/20 16:54 Alkaline Phosphatase 157 units/L (35-129) H 10/07/20 16:54 Total Creatine Kinase 1510 units/L (30-135) H 10/01/20 02:15 CK-MB (CK-2) 190.6 ng/mL (0.0-4.0) H 10/01/20 02:15 CK-MB (CK-2) Rel Index 12.6 (0-4) H 10/01/20 02:15 Troponin T 3.120 ng/mL (0.00-0.029) H* 10/01/20 02:15 Total Protein 5.5 g/dL (6.3-8.2) L 10/07/20 16:54 Albumin 3.0 g/dL (3.9-5) L 10/07/20 16:54 Albumin/Globulin Ratio 1.2 % 10/07/20 16:54 Triglycerides 151 mg/dL (2-149) H 09/30/20 19:30 Cholesterol 177 mg/dL (50-199) 09/30/20 19:30 LDL Cholesterol Direct 89 mg/dL (50-130) 09/30/20 19:30 HDL Cholesterol 73 mg/dL (40-59) H 09/30/20 19:30 Cholesterol/HDL Ratio 2.42 % 09/30/20 19:30 Coronavirus (PCR) Negative (Negative) 10/01/20 08:09 Hepatitis A IgM Ab Non-reactive (NonReactive) 10/06/20 14:21 Hep Bs Antigen Nonreactive (Negative) 10/06/20 14:21 Hep B Core IgM Ab Non-reactive (NonReactive) 10/06/20 14:21 Hepatitis C Antibody Non-reactive (NonReactive) 10/06/20 14:21 Blood Type O POSITIVE 09/30/20 19:30 Antibody Screen Negative 09/30/20 19:30 Bethea/IV: Voiding Method Toilet Active Medications - Current Medications Current Medications: Generic Name Dose Route Start Last Admin Trade Name Freq PRN Reason Stop Dose Admin Acetaminophen 650 mg 09/30/20 20:43 Acetaminophen 325 Mg Tab PO Q6H PRN Pain MILD(1-3)/Fever >100.5/[place] Albuterol 2.5 mg 09/30/20 20:43 10/07/20 10:42 Albuterol 2.5 Mg/3 Ml Nebu IH 2.5 mg Q3HRT PRN Administration Shortness Of Breath Atorvastatin Calcium 40 mg 09/30/20 22:00 10/07/20 22:03 Atorvastatin 40 Mg Tab PO Not Given QHS GANESH Clopidogrel Bisulfate 75 mg 10/03/20 10:00 10/08/20 11:18 Clopidogrel 75 Mg Tab PO 75 mg QDAY GANESH Administration Cyclobenzaprine HCl 10 mg 09/30/20 20:45 10/02/20 04:29 Cyclobenzaprine 10 Mg Tab PO 10 mg TID PRN Administration Muscle Spasm Folic Acid 1 mg 10/01/20 10:00 10/08/20 11:15 Folic Acid 1 Mg Tab PO 1 mg QDAY GANESH Administration Hydromorphone HCl 0.5 mg 09/30/20 20:43 10/07/20 17:31 Hydromorphone 1 Mg/1 Ml Inj IV 0.5 mg Q12H PRN Administration Pain , Severe (7-10) Lisinopril 2.5 mg 10/03/20 10:00 10/08/20 11:16 Lisinopril 5 Mg Tab PO 2.5 mg QDAY GANESH Administration Lorazepam 2 mg 09/30/20 20:54 Lorazepam 2 Mg/Ml Vial IV Q1HR PRN CIWA-Ar 8-15 Metoprolol Tartrate 50 mg 10/01/20 15:00 10/08/20 11:15 Metoprolol Tartrate 50 Mg Tab PO 50 mg BID GANESH Administration Oxycodone/Acetaminophen 1 tab 09/30/20 20:43 10/08/20 11:16 Oxycodone /Acetaminophen 5-325mg Tab PO 1 tab Q12H PRN Administration Pain, Moderate (4-6) Pantoprazole Sodium 40 mg 10/01/20 07:30 10/08/20 11:17 Pantoprazole 40 Mg Tab PO 40 mg QDAC GANESH Administration Risperidone 0.25 mg 10/01/20 11:00 10/08/20 11:18 Risperidone 0.25 Mg Tab PO 0.25 mg BID GANESH Administration Sodium Chloride 10 ml 09/30/20 22:00 10/08/20 11:18 Sodium Chloride 0.9% 10 Ml Flush Syringe IV 10 ml BID GANESH Administration Sodium Chloride 10 ml 09/30/20 20:43 Sodium Chloride 0.9% 10 Ml Flush Syringe IV PRN PRN LINE FLUSH Spironolactone 25 mg 10/01/20 10:00 10/08/20 11:16 Spironolactone 25 Mg Tab PO 25 mg QDAY GANESH Administration Trazodone HCl 50 mg 10/01/20 22:00 10/07/20 22:03 Trazodone 50 Mg Tab PO 50 mg QHS GANESH Administration Warfarin Sodium 2.5 mg 10/08/20 17:00 Warfarin 2.5 Mg Tab PO Q48H GANESH Warfarin Sodium 5 mg 10/09/20 17:00 Warfarin 5 Mg Tab PO Q48H GANESH Nutrition/Malnutrition Assess - Dietary Evaluation Nutrition/Malnutrition Findings: Nutrition Notes Start: 10/02/20 11:05 Freq: Status: Active Protocol: Document 10/06/20 11:39 MK (Rec: 10/06/20 11:45 MK [id number]) Nutrition Notes Initial or Follow up Reassessment Current Diagnosis Heart Failure Other Pertinent Diagnosis STEMI, alcohol dependence Current Diet Cardiac Labs/Tests reviewed Pertinent Medications reviewed Height 5 ft 3 in Weight 61.5 kg Granite Body Weight (kg) 52.27 BMI 24.0 Weight Status Appropriate Subjective/Other Information Pt with yumiko ONS at bedside . She drinks them rarely. She states she eats almost all of her meals. She didn't eat breakfast yet but stated she will soon. Percent of energy/protein needs met: 100%/100% Burn Absent Trauma Absent Current % PO Good (75-100%) Minimum of two criteria No Energy Intake (non-severe) <75% Estimated Energy Requirement >7 days #2 Nutrition Diagnosis Food and nutrition-related knowledge deficit As Evidenced by Signs and Symptoms pt had no questions Diagnosis Progress(for reassessment Resolved documentation) #1 Nutrition Diagnosis Inadequate oral intake As Evidenced by Signs and Symptoms pt eating 90% of meals Diagnosis Progress(for reassessment Improved documentation) Is patient on ventilator? No Is Patient Ambulatory and/or Out of Bed No REE-([facility]-confined to bed) 1443.108 Calculation Used for Recommendations [facility] Additional Notes Protein: (0.8-1g/kg) 47-59g Fluid: 1 ml/kcal Nutrition Intervention Change Diet Order: continue Add Supplement/Snack (indicate name/kcal d/c /protein ) Goal #1 Meet at least 75% of energy and protein needs via PO and ONS Follow-Up By: 10/09/20 Additional Comments F/u: stable intakes
--- NOTE | 2020-10-08 15:14 | Discharge Summary ---
Providers - Providers Date of Admission: 09/30/20 20:43 Date of discharge: 10/08/20 Attending physician: JAZIEL SHAH 09/30/20 Consult to Cardiac Rehabilitation [CONS] Routine Reason For Exam: post pci 09/30/20 19:30 Consult to Physician [CONS] Stat Comment: Consulting Provider: LOREN KWOK Physician Instructions: Reason For Exam: STEMI 09/30/20 20:53 Consult to Physician [CONS] Routine Comment: Consulting Provider: KEL ACEVEDO Physician Instructions: Reason For Exam: stemi 09/30/20 21:03 Consult to Mental Health [CONS] Routine Reason For Exam: Bipolar disorder 10/03/20 09:01 Consult to Dietitian/Nutrition [CONS] Routine Physician Instructions: Reason For Exam: Reason for Consult: Malnutrition 10/05/20 11:30 Physical Therapy Evaluation and Treat [CONS] Urgent Comment: Reason For Exam: PT to eval and treat 10/05/20 11:31 Occupational Therapy Evaluate and Treat [CONS] Urgent Comment: Reason For Exam: OT to Eval and Treat 10/06/20 10:51 Consult to Physician [CONS] Routine Comment: Consulting Provider: NATHANIEL GARDNER Physician Instructions: Reason For Exam: Worsening LFTs/patient with cardiomyopathy Primary care physician: [facility]ANCE [facility]ENT Hospitalization Reason for admission: Acute chest pain/ST elevation NC Condition: Stable Pertinent studies: Chest x-ray Echocardiogram Left heart catheterization Abdominal ultrasound Procedures: s/p emergent cardiac catheterization . angiogram showed a distal thrombotic occlusion of the LAD just after the apex. Right and left coronary arteries were otherwise angiographically normal. s/p export thrombectomy and some distal plain-old balloon angioplasty. Hospital course: My chest is hurting History of present illness: 50 YO Female with Asthma, Nicotine Dependence, ETOH Dependence, Bipolar Disorder presents to ED for evaluation. Patient reports "my chest is hurting". Patient states that she has experienced a sudden onset of chest pain that began over the past 4 hours. Patient states that pain is 6/10, constant, radiates to the right arm, associated with diaphoresis, associated with shortness of breath. EMS was notified and upon arrival the patient was found to be in distress. An EKG revealed EKG changes. A code stroke was called and the patient was subsequently transported to [facility] for further care and evaluation of the aforementioned symptoms. The patient was seen and evaluated in the emergency department. All lab and imaging studies reviewed. Patient found to have ST elevation NC. Patient taken urgently to the cardiac Housekeeper. Cardiology team consulted. Patient denies fever, chills, palpitation, productive cough, skin rash, recent ill contacts, or known exposure to COVID-19. Prior admission on 04/12/2020 reviewed. All medication listed at time of admission has been reconciled. --COVID-19 negative --LV thrombus on echocardiogram ; INR 1.5 today Current Visit: Yes Status: Acute Continue heparin drip, Coumadin Target INR 2-3 --Acute systolic congestive heart failure ; EF 25% Current Visit: Yes Status: Acute Continue antifailure medications, heparin drip due to mural thrombus Noted output monitoring, fluid restriction --Transaminitis; Probably secondary to congestion of the liver due to cardiomyopathy with ejection fraction of 25% LFTs are trending down negative hepatitis panel, abdominal ultrasound, negative for acute abnormality GI following --Acute anterior wall STEMI (ST elevation myocardial infarction) Current Visit: Yes Status: Acute Cardiology evaluated s/p emergent cardiac catheterization . angiogram showed a distal thrombotic occlusion of the LAD just after the apex. Right and left coronary arteries were otherwise angiographically normal. s/p export thrombectomy and some distal plain-old balloon angioplasty. Today patient feels slightly better, hemodynamically stable Patient was not tolerating amiodarone and isosorbide[had fatigue and generalized weakness] These meds were discontinued by cardiology, patient feels better -- Nicotine dependence Current Visit: Yes Status: Acute Smoking cessation counseling, nicotine patch as needed --Alcohol dependence Current Visit: Yes Status: Acute CIMI protocol: Thiamine, folic acid, multivitamin daily, supportive care. Alcohol rehabilitation upon discharge --History of bipolar disorder Current Visit: Yes Status: Acute Continue current psych medications Follow psych evaluation and recommendations Disposition: 01 HOME / SELF CARE / HOMELESS Final Discharge Diagnosis (Prints w/discharge instructions): LV thrombus on echocardiogram. Subtherapeutic INR/today it is therapeutic. Acute systolic congestive heart failure EF 25%. Acute anterior wall STEMI. s/p export thrombectomy and distal plain old balloon angioplasty. Ongoing tobacco use. Ongoing alcohol use. History of bipolar use Time spent for discharge: 35 minutes Core Measure Documentation - Palliative Care Palliative Care/ Comfort Measures: Not Applicable - Core Measures Any of the following diagnoses?: none Exam - Constitutional Vitals: Temp Pulse Resp BP Pulse Ox 98.8 F 89 18 125/84 100 10/08/20 12:07 10/08/20 12:07 10/08/20 12:07 10/08/20 12:07 10/08/20 12:07 General appearance: Present: no acute distress, well-nourished - EENT Eyes: Present: PERRL, EOM intact - Neck Neck: Present: supple, normal ROM - Respiratory Respiratory effort: normal Respiratory: bilateral: diminished, negative: rales, rhonchi, wheezing - Cardiovascular Rhythm: regular Heart Sounds: Present: S1 & S2 - Extremities Extremities: no ischemia, No edema - Abdominal General gastrointestinal: Present: soft, non-tender, non-distended, normal bowel sounds - Integumentary Integumentary: Present: clear, warm - Musculoskeletal Musculoskeletal: strength equal bilaterally - Psychiatric Psychiatric: appropriate mood/affect, cooperative - Neurologic Neurologic: CNII-XII intact, moves all extremities Plan Activity: advance as tolerated Diet: other (Cardiac diet/Coumadin diet) Special Instructions: smoking cessation Additional Instructions: . Cardiology advised ; Plavix 75 mg daily, and. warfarin[Coumadin] 5 mg alternating with 2.5 mg every other day. The patient should have a recheck of her INR in 5 to 7 days. 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 office/ on 10/13/2020 at 10 AM for INR check Follow up with: PRIMARY CAREMD [Primary Care Provider] - 3-5 Days KEL ACEVEDO MD [Staff Physician] - 10 Days MINNATHANIEL MD [Staff Physician] - 7 Days Forms: Warfarin Discharge Instruction Prescriptions: Spironolactone [Aldactone] 25 mg PO QDAY #30 tablet carvediloL [Coreg] 6.25 mg PO BID #60 tablet Warfarin [Coumadin] 2.5 mg PO Q48H #30 tablet Warfarin [Coumadin] 5 mg PO Q48H #30 tablet traZODone [Desyrel] 50 mg PO QHS #14 tablet Folic Acid [Folvite] 1 mg PO QDAY #30 tablet HYDROcodone/APAP 5-325 [[place]io 5-325 mg TAB] 1 each PO Q6HR PRN #10 tablet PRN Reason: Pain Clopidogrel [Plavix] 75 mg PO QDAY #30 tablet risperiDONE [RisperDAL] 0.25 mg PO BID #30 tablet lisinopriL [Zestril TAB] 5 mg PO QDAY #30 tablet
--- NOTE | 2020-10-08 15:22 | Gastroenterology Progress Note ---
Assessment and Plan # Elevated liver enzymes - Noted to have AST 185 ALT 29 on admission and now trended up to AST 450 ALT 727 today. - ddx including ischemic vs hepatic congestion vs medication induced. - patient was on amiodarone, which was stopped with patient intolerance - Abdominal US with normal liver. - liver enzymes trending down. - INR elevated with coumadin. # BUTCH - chronic anemia - EGD/colonoscopy in 03/2020 without source of bleeding. Path positive for H pylori. - unclear if treated for H pylori. - will need triple therapy as outpatient. would avoid new medication in the setting of newly elevated LFTs. - ok for discharge per GI standpoint. Follow up in GI clinic in 2 weeks for repeat CMP. Once liver enzymes normalize, will treat for H Pylori. - will sign off. Subjective Date of service: 10/08/20 Principal diagnosis: STEMI Interval history: Patient doing well. No GI complaints. No abdominal pain. Objective - Constitutional Vitals: Temp Pulse Resp BP Pulse Ox 98.8 F 89 18 125/84 100 10/08/20 12:07 10/08/20 12:07 10/08/20 12:07 10/08/20 12:07 10/08/20 12:07 General appearance: no acute distress - EENT Eyes: EOM intact ENT: hearing intact - Respiratory Respiratory effort: normal - Cardiovascular Rhythm: regular Heart Sounds: Present: S1 & S2 - Gastrointestinal General gastrointestinal: Present: soft, non-tender, non-distended, normal bowel sounds - Integumentary Integumentary: Present: clear, warm - Neurologic Neurological: alert and oriented x3 - Labs CBC & Chem 7: 10/08/20 04:33 10/07/20 16:54 Labs: Laboratory Results - last 24 hr 10/07/20 10/07/20 10/08/20 16:54 16:54 01:02 Hgb Hct PT INR Heparin Anti-Xa Level 0.30 0.43 Sodium 138 Potassium 3.6 Chloride 103.7 Carbon Dioxide 23 Anion Gap 15 BUN 9 Creatinine 0.6 Estimated GFR > 60 BUN/Creatinine Ratio 15 Glucose 109 H Calcium 8.5 Total Bilirubin 0.30 AST 157 H ALT 449 H Alkaline Phosphatase 157 H Total Protein 5.5 L Albumin 3.0 L Albumin/Globulin Ratio 1.2 10/08/20 10/08/20 04:33 04:33 Hgb 7.2 L Hct 24.2 L PT 24.9 H INR 2.21 H Heparin Anti-Xa Level Sodium Potassium Chloride Carbon Dioxide Anion Gap BUN Creatinine Estimated GFR BUN/Creatinine Ratio Glucose Calcium Total Bilirubin AST ALT Alkaline Phosphatase Total Protein Albumin Albumin/Globulin Ratio
[2020-10-08] MEDS ORDERED: WARFARIN 2.5 MG TAB PO SCH (17:00)
[2020-10-09] MEDS ORDERED: WARFARIN 5 MG TAB PO SCH (17:00)
== END 2020-10-08 17:00 | disposition home health service (06) | DRG 250 ==
LOC: ED 18:59 → CC1 20:43 → 4A 10-03 14:06
PROVIDERS: ADMIT Internal Medicine; ATTEND Internal Medicine
PROC: 02703ZZ Dilation of Coronary Artery, One Artery, Percutaneous Approach (ICD-10-PCS; principal; 2020-09-30)
PROC: 02C03ZZ Extirpation of Matter from Coronary Artery, One Artery, Percutaneous Approach (ICD-10-PCS; 2020-09-30)
PROC: 4A023N7 Measurement of Cardiac Sampling and Pressure, Left Heart, Percutaneous Approach (ICD-10-PCS; 2020-09-30)
PROC: B2111ZZ Fluoroscopy of Multiple Coronary Arteries using Low Osmolar Contrast (ICD-10-PCS; 2020-09-30)
DX: I21.09 ST elevation (STEMI) myocardial infarction involving other coronary artery of anterior wall (principal); I50.41 Acute combined systolic (congestive) and diastolic (congestive) heart failure; I47.2 Ventricular tachycardia; I42.0 Dilated cardiomyopathy; E44.0 Moderate protein-calorie malnutrition; F10.20 Alcohol dependence, uncomplicated; F17.200 Nicotine dependence, unspecified, uncomplicated; F31.9 Bipolar disorder, unspecified; D50.0 Iron deficiency anemia secondary to blood loss (chronic); J45.909 Unspecified asthma, uncomplicated; Z20.822 Contact with and (suspected) exposure to COVID-19; R74.01 Elevation of levels of liver transaminase levels; F12.90 Cannabis use, unspecified, uncomplicated; Z82.49 Family history of ischemic heart disease and other diseases of the circulatory system; Z68.24 Body mass index [BMI] 24.0-24.9, adult; Z83.3 Family history of diabetes mellitus; Z88.6 Allergy status to analgesic agent; Z79.82 Long term (current) use of aspirin; Z79.899 Other long term (current) drug therapy; Z71.6 Tobacco abuse counseling
CPT/HCPCS: 36415; 71045; 76700; 80048; 80053; 80061; 80074; 82550; 82553; 83735; 84484; 85007; 85014; 85018; 85025; 85520; 85610; 85730; 86850; 86900; 86901; 92920; 93005; 93306; 93454; 93799; 94640; 94760; 99291; 99406; G0378; A9270-GY; C1725; C1757; C1769; C1887; C1894; J0282; J1170; J1644; J2250; J3010; J3411; J7030; J7050; J7060; Q9967; U0003

== ENCOUNTER 2020-12-10 09:51 | Emergency (ER) | payer MEDICARE ==
--- NOTE | 2020-12-10 10:41 | Event Note ---
ED Screening Note ED Screening Note: Just d/c from hosp sp [place] x 2 co weakness/shortness of breath on coumadin, plavix, asa and imdur STATES WAS TAKEN OFF HER BP MEDS TACHY TO 112 IN TRIAGE PMH HTN HLD "CLOT ON HEART" GERD SEE EMR DR ACEVEDO FOLLOWS PT BUT PT STATES SHE HAS BEEN UNABLE TO REACH HIM This initial assessment/diagnostic orders/clinical plan/treatment(s) is/are subject to change based on patients health status, clinical progression and re- assessment by fellow clinical providers in the ED. Further treatment and workup at subsequent clinical providers discretion. Patient/guardian urged not to elope from the ED as their condition may be serious if not clinically assessed and managed. Initial orders include: RO ACS- STENT OCCLUSION/HR
--- NOTE | 2020-12-10 11:07 | XRay Report ---
CHEST 2 VIEWS INDICATION: sob. COMPARISON: 10/29/2020 FINDINGS: Support devices: None. Heart: Stable mild cardiomegaly Lungs/pleura: No acute air space or interstitial disease. No pneumothorax. Additional findings: None. IMPRESSION: Stable mild cardiomegaly. Lungs clear. Signer Name: Stefan Contreras Jr, MD Signed: 12/10/2020 11:02 AM Workstation Name: [id number]
[2020-12-10 11:39] LABS: Mean Corpuscular HGB Conc 31 % (30-34); Mean Corpuscular Volume 81 fl (79-97); Platelet Count 321 K/mm3 (140-440); Red Blood Count 4.61 M/mm3 (3.65-5.03)
[2020-12-10 12:00] LABS: Alanine Aminotransferase 209 units/L (7-56); Albumin 3.3 g/dL (3.9-5); BUN/Creatinine Ratio 18; Blood Urea Nitrogen 14 mg/dL (7-17); Calcium 8.5 mg/dL (8.4-10.2); Hemolysis Index 1
[2020-12-10 12:25] LABS: Hematocrit 37.2 % (30.3-42.9); Hemoglobin 11.3 gm/dl (10.1-14.3); INR 1.11 (0.87-1.13); Partial Thromboplastin Time 28.1 Sec. (24.2-36.6)
[2020-12-10] MEDS ORDERED: FUROSEMIDE 40 MG/4 ML INJ IV ONE (13:06)
[2020-12-10] MEDS ORDERED: APIXABAN 5 MG TAB PO SCH ×4 (13:08→22:00)
--- NOTE | 2020-12-10 13:34 | Emergency Department Report ---
HPI - General Chief Complaint: Chest Pain Time Seen by Provider: 12/10/20 10:40 - HPI HPI: This is a 50-year-old -[place] female presents to the emergency department with a complaint of generalized weakness and fatigue, shortness of breath with exertion and when laying flat. She denies any chest pain, lower extremity swelling, nausea, vomiting or diaphoresis. Patient has a past medical history of hypertension, severe nonischemic cardiomyopathy, coronary artery disease, and bipolar disorder. Patient was here in September of this year for a [facility] and had balloon angioplasty and thrombectomy of the distal LAD. The patient was here again in October and once again had a cardiac catheterization after she was found to have a NSTEMI. The patient also has a left ventricular intramural thrombus and is anticoagulated on warfarin and on Plavix. The patient says that she has been compliant with these medications other than taking it this morning. She feels that the medications make her extremely fatigued and may be part of the reason for her symptoms. She did not take the medication this morning and says that she feels much more energetic. ED Past Medical Hx - Past Medical History Previous Medical History?: Yes Hx Hypertension: Yes Hx Congestive Heart Failure: No Hx Diabetes: No Hx Psychiatric Treatment: Yes (bipolar) Hx Asthma: Yes Hx COPD: No - Surgical History Past Surgical History?: Yes Additional Surgical History: - Social History Smoking Status: Current Every Day Smoker Substance Use Type: None - Medications Home Medications: Home Medications Medication Instructions Recorded Confirmed Last Taken Type AtorvaSTATin [Lipitor] 40 mg PO QHS #30 tab 04/16/20 10/30/20 Unknown Rx Pantoprazole [Protonix TAB] 40 mg PO QDAC #30 tablet 04/16/20 10/30/20 Unknown Rx Clopidogrel [Plavix] 75 mg PO QDAY #30 tablet 10/08/20 10/30/20 Unknown Rx Folic Acid [Folvite] 1 mg PO QDAY #30 tablet 10/08/20 10/30/20 Unknown Rx Metoprolol [Lopressor TAB] 50 mg PO BID #60 tablet 10/08/20 10/30/20 Unknown Rx Spironolactone [Aldactone] 25 mg PO QDAY #30 tablet 10/08/20 10/30/20 Unknown Rx lisinopriL [Zestril TAB] 5 mg PO QDAY #30 tablet 10/08/20 10/30/20 Unknown Rx risperiDONE [RisperDAL] 0.25 mg PO BID #30 tablet 10/08/20 10/30/20 Unknown Rx traZODone [Desyrel] 50 mg PO QHS #14 tablet 10/08/20 10/30/20 Unknown Rx Docusate Sodium [Colace] 100 mg PO BID #60 capsule 11/06/20 Unknown Rx Ferrous Sulfate [Feosol 325 MG tab] 325 mg PO BID #60 tablet 11/06/20 Unknown Rx ISOSORBIDE MONOnitrate [Imdur ER] 30 mg PO QDAY #30 tablet 11/06/20 Unknown Rx ALBUTEROL NEB's [Proventil 0.083% 2.5 mg IH TID PRN #1 box 12/10/20 Unknown Rx NEBS] Albuterol Mdi (or & Nicu Only) 2 puff IH QID PRN #8.5 gram 12/10/20 Unknown Rx [ProAir HFA Inhaler] Apixaban [Eliquis] 5 mg PO BID #60 tablet 12/10/20 Unknown Rx ED Review of Systems ROS: Stated complaint: STEFFI/WEAK/PREVIOUS 2 HEART ATTACKS Other details as noted in HPI Comment: All other systems reviewed and negative Constitutional: weakness. denies: fever Eyes: denies: eye pain, vision change ENT: denies: ear pain, throat pain Respiratory: orthopnea, SOB with exertion Cardiovascular: denies: chest pain, edema Gastrointestinal: denies: abdominal pain, vomiting Genitourinary: denies: dysuria, discharge Musculoskeletal: denies: back pain, arthralgia Skin: denies: rash, lesions Neurological: denies: headache, weakness Physical Exam - Physical Exam Vital Signs: Vital Signs 12/10/20 12/10/20 12/10/20 10:38 11:36 11:45 Temperature 98.2 F Pulse Rate 95 H Respiratory 16 Rate Blood Pressure 138/98 Blood Pressure 154/103 [Left] O2 Sat by Pulse 96 100 100 Oximetry 12/10/20 12/10/20 12/10/20 12:01 12:15 12:31 Temperature Pulse Rate 90 95 H Respiratory 25 H 31 H Rate Blood Pressure 119/96 126/97 119/96 Blood Pressure [Left] O2 Sat by Pulse 100 100 99 Oximetry 12/10/20 12:45 Temperature Pulse Rate Respiratory Rate Blood Pressure 123/96 Blood Pressure [Left] O2 Sat by Pulse 100 Oximetry Physical Exam: GENERAL: The patient is well-developed well-nourished. HENT: Normocephalic. Atraumatic. Patient has moist mucous membranes. EYES: Extraocular motions are intact. No nystagmus. NECK: Supple. Trachea is midline. CHEST/LUNGS: Clear to auscultation. There is no respiratory distress noted. HEART/CARDIOVASCULAR: Regular. There is no tachycardia. There is no murmur. ABDOMEN: Abdomen is soft, nontender. Patient has normal bowel sounds. SKIN: Skin is warm and dry. NEURO: The patient is awake, alert, and oriented. The patient is cooperative. The patient has no focal neurologic deficits. Normal speech. Cranial nerves II through XII grossly intact. No facial asymmetry. No pronator drift or dysmetria. MUSCULOSKELETAL: There is no tenderness or deformity. There is no limitation range of motion. Muscle strength 5 out of 5 for upper and lower extremities bilaterally. ED Course Vital Signs 12/10/20 12/10/20 12/10/20 10:38 11:36 11:45 Temperature 98.2 F Pulse Rate 95 H Respiratory 16 Rate Blood Pressure 138/98 Blood Pressure 154/103 [Left] O2 Sat by Pulse 96 100 100 Oximetry 12/10/20 12/10/20 12/10/20 12:01 12:15 12:31 Temperature Pulse Rate 90 95 H Respiratory 25 H 31 H Rate Blood Pressure 119/96 126/97 119/96 Blood Pressure [Left] O2 Sat by Pulse 100 100 99 Oximetry 12/10/20 12:45 Temperature Pulse Rate Respiratory Rate Blood Pressure 123/96 Blood Pressure [Left] O2 Sat by Pulse 100 Oximetry - Consultations Consultation #1: 12/10/20 15:36 I spoke with the patient's tank insulator rubber, Dr. Palomo. He listened to the patient's presentation and is very familiar with the patient. As the patient is noncompliant with her Coumadin, he has requested that the patient be switched to a NOAC such as Eliquis. He also requested the patient received a dose of Lasix in the emergency department. If the patient has a second negative troponin, given her recent negative heart cath, the patient is safe for discharge home with outpatient follow-up. ED Medical Decision Making - Lab Data Result diagrams: 12/10/20 11:24 12/10/20 11:24 Lab Results 12/10/20 12/10/20 12/10/20 Range/Units 11:24 11:24 11:24 WBC 7.4 (4.5-11.0) K/mm3 RBC 4.61 (3.65-5.03) M/mm3 Hgb 11.3 (10.1-14.3) gm/dl Hct 37.2 (30.3-42.9) % MCV 81 (79-97) fl MCH 25 L (28-32) pg MCHC 31 (30-34) % RDW 29.0 H (13.2-15.2) % Plt Count 321 (140-440) K/mm3 Add Manual Diff Complete Total Counted 100 Seg Neuts % (Manual) 84.0 H (40.0-70.0) % Lymphocytes % (Manual) 9.0 L (13.4-35.0) % Monocytes % (Manual) 7.0 (0.0-7.3) % Nucleated RBC % Not Reportable Seg Neutrophils # Man 6.2 (1.8-7.7) K/mm3 Band Neutrophils # 0.0 K/mm3 Lymphocytes # (Manual) 0.7 L (1.2-5.4) K/mm3 Abs React Lymphs (Man) 0.0 K/mm3 Monocytes # (Manual) 0.5 (0.0-0.8) K/mm3 Eosinophils # (Manual) 0.0 (0.0-0.4) K/mm3 Basophils # (Manual) 0.0 (0.0-0.1) K/mm3 Metamyelocytes # 0.0 K/mm3 Myelocytes # 0.0 K/mm3 Promyelocytes # 0.0 K/mm3 Blast Cells # 0.0 K/mm3 WBC Morphology Not Reportable Hypersegmented Neuts Not Reportable Hyposegmented Neuts Not Reportable Hypogranular Neuts Not Reportable Smudge Cells Not Reportable Toxic Granulation Not Reportable Toxic Vacuolation Not Reportable Dohle Bodies Not Reportable Pelger-Huet Anomaly Not Reportable Luz Maria Rods Not Reportable Platelet Estimate Consistent w auto Clumped Platelets Not Reportable Plt Clumps, EDTA Not Reportable Large Platelets Not Reportable Giant Platelets Not Reportable Platelet Satelliting Not Reportable Plt Morphology Comment Not Reportable RBC Morphology Not Reportable Dimorphic RBCs Not Reportable Polychromasia Not Reportable Hypochromasia Not Reportable Poikilocytosis Not Reportable Anisocytosis Not Reportable Microcytosis Not Reportable Macrocytosis Not Reportable Spherocytes Not Reportable Pappenheimer Bodies Not Reportable Sickle Cells Not Reportable Target Cells Not Reportable Tear Drop Cells Not Reportable Ovalocytes 1+ Helmet Cells Not Reportable Martin-Ellston Bodies Not Reportable [place] Rings Not Reportable Marilee Cells Not Reportable Bite Cells Not Reportable Crenated Cell Not Reportable Elliptocytes Not Reportable Acanthocytes (Spur) Not Reportable Rouleaux Not Reportable Hemoglobin C Crystals Not Reportable Schistocytes Not Reportable Malaria parasites Not Reportable Mamadou Bodies Not Reportable Hem Pathologist Commnt No PT 15.5 H (12.2-14.9) Sec. INR 1.11 (0.87-1.13) APTT 28.1 (24.2-36.6) Sec. Sodium 145 (137-145) mmol/L Potassium 4.2 (3.6-5.0) mmol/L Chloride 110.7 H (98-107) mmol/L Carbon Dioxide 25 (22-30) mmol/L Anion Gap 14 mmol/L BUN 14 (7-17) mg/dL Creatinine 0.8 (0.6-1.2) mg/dL Estimated GFR > 60 ml/min BUN/Creatinine Ratio 18 % Glucose 85 (65-100) mg/dL Calcium 8.5 (8.4-10.2) mg/dL Total Bilirubin 0.60 (0.1-1.2) mg/dL AST 123 H (5-40) units/L ALT 209 H (7-56) units/L Alkaline Phosphatase 89 (35-129) units/L Troponin T < 0.010 (0.00-0.029) ng/mL NT-Pro-B Natriuret Pep 3798 H (0-900) pg/mL Total Protein 5.8 L (6.3-8.2) g/dL Albumin 3.3 L (3.9-5) g/dL Albumin/Globulin Ratio 1.3 % Urine Color (Yellow) Urine Turbidity (Clear) Urine pH (5.0-7.0) Ur Specific [place] (1.003-1.030) Urine Protein (Negative) mg/dL Urine Glucose (UA) (Negative) mg/dL Urine Ketones (Negative) mg/dL Urine Blood (Negative) Urine Nitrite (Negative) Urine Bilirubin (Negative) Urine Urobilinogen (<2.0) mg/dL Ur Leukocyte Esterase (Negative) Urine WBC (Auto) (0.0-6.0) /HPF Urine RBC (Auto) (0.0-6.0) /HPF U Epithel Cells (Auto) (0-13.0) /HPF Urine Mucus /HPF Urine Opiates Screen Urine Methadone Screen Ur Barbiturates Screen Ur Phencyclidine Scrn Ur Amphetamines Screen U Benzodiazepines Scrn Urine Cocaine Screen U Marijuana (THC) Screen Drugs of Abuse Note 12/10/20 12/10/20 12/10/20 Range/Units 14:40 Unknown Unknown WBC (4.5-11.0) K/mm3 RBC (3.65-5.03) M/mm3 Hgb (10.1-14.3) gm/dl Hct (30.3-42.9) % MCV (79-97) fl MCH (28-32) pg MCHC (30-34) % RDW (13.2-15.2) % Plt Count (140-440) K/mm3 Add Manual Diff Total Counted Seg Neuts % (Manual) (40.0-70.0) % Lymphocytes % (Manual) (13.4-35.0) % Monocytes % (Manual) (0.0-7.3) % Nucleated RBC % Seg Neutrophils # Man (1.8-7.7) K/mm3 Band Neutrophils # K/mm3 Lymphocytes # (Manual) (1.2-5.4) K/mm3 Abs React Lymphs (Man) K/mm3 Monocytes # (Manual) (0.0-0.8) K/mm3 Eosinophils # (Manual) (0.0-0.4) K/mm3 Basophils # (Manual) (0.0-0.1) K/mm3 Metamyelocytes # K/mm3 Myelocytes # K/mm3 Promyelocytes # K/mm3 Blast Cells # K/mm3 WBC Morphology Hypersegmented Neuts Hyposegmented Neuts Hypogranular Neuts Smudge Cells Toxic Granulation Toxic Vacuolation Dohle Bodies Pelger-Huet Anomaly Luz Maria Rods Platelet Estimate Clumped Platelets Plt Clumps, EDTA Large Platelets Giant Platelets Platelet Satelliting Plt Morphology Comment RBC Morphology Dimorphic RBCs Polychromasia Hypochromasia Poikilocytosis Anisocytosis Microcytosis Macrocytosis Spherocytes Pappenheimer Bodies Sickle Cells Target Cells Tear Drop Cells Ovalocytes Helmet Cells Martin-Ellston Bodies [place] Rings Stuart Cells Bite Cells Crenated Cell Elliptocytes Acanthocytes (Spur) Rouleaux Hemoglobin C Crystals Schistocytes Malaria parasites Mamadou Bodies Hem Pathologist Commnt PT (12.2-14.9) Sec. INR (0.87-1.13) APTT (24.2-36.6) Sec. Sodium (137-145) mmol/L Potassium (3.6-5.0) mmol/L Chloride (98-107) mmol/L Carbon Dioxide (22-30) mmol/L Anion Gap mmol/L BUN (7-17) mg/dL Creatinine (0.6-1.2) mg/dL Estimated GFR ml/min BUN/Creatinine Ratio % Glucose (65-100) mg/dL Calcium (8.4-10.2) mg/dL Total Bilirubin (0.1-1.2) mg/dL AST (5-40) units/L ALT (7-56) units/L Alkaline Phosphatase (35-129) units/L Troponin T < 0.010 (0.00-0.029) ng/mL NT-Pro-B Natriuret Pep (0-900) pg/mL Total Protein (6.3-8.2) g/dL Albumin (3.9-5) g/dL Albumin/Globulin Ratio % Urine Color Yellow (Yellow) Urine Turbidity Clear (Clear) Urine pH 5.0 (5.0-7.0) Ur Specific [place] 1.015 (1.003-1.030) Urine Protein 30 mg/dl (Negative) mg/dL Urine Glucose (UA) Neg (Negative) mg/dL Urine Ketones Neg (Negative) mg/dL Urine Blood Neg (Negative) Urine Nitrite Neg (Negative) Urine Bilirubin Neg (Negative) Urine Urobilinogen < 2.0 (<2.0) mg/dL Ur Leukocyte Esterase Neg (Negative) Urine WBC (Auto) < 1.0 (0.0-6.0) /HPF Urine RBC (Auto) 1.0 (0.0-6.0) /HPF U Epithel Cells (Auto) 2.0 (0-13.0) /HPF Urine Mucus 1+ /HPF Urine Opiates Screen Negative Urine Methadone Screen Negative Ur Barbiturates Screen Negative Ur Phencyclidine Scrn Negative Ur Amphetamines Screen Negative U Benzodiazepines Scrn Negative Urine Cocaine Screen Positive U Marijuana (THC) Screen Positive Drugs of Abuse Note Disclamer - EKG Data -: EKG Interpreted by Me EKG shows normal: sinus rhythm (PVCs), axis (Left axis deviation), intervals, QRS complexes (Q waves to the anterior and inferior leads, LVH), ST-T waves Rate: normal - EKG Data When compared to previous EKG there are: no significant change Interpretation: unchanged when compared t (10/31/20) - Radiology Data Radiology results: image reviewed interpreted by me: Chest x-ray does not show any acute process. There are no pleural effusions, obvious pneumonia and there is no pneumothorax. No widened mediastinum. - Medical Decision Making This patient presents to the emergency department with a complaint of some generalized weakness and fatigue, as well as some shortness of breath that worsens with exertion. She denies any chest pain. On examination the patient appears awake, alert, oriented. She has no focal, motor or sensory deficits and her cranial nerves are intact. Patient is energetic and does not appear in any respiratory or acute distress. EKG does not have any morphology consistent with ST elevation myocardial infarction. Chest x-ray does not show any pneumonia, pleural effusions, widened mediastinum, pneumothorax, or any other acute process. The patient's labs are significant for transaminitis, consistent with previous visits, and an elevated proBNP of about 4000. She has had negative troponins x2. I spoke with the patient's tank insulator rubber to recommended switching from the warfarin/Coumadin to a NOAC, and giving the patient a dose of Lasix in the emergency department. With negative troponins x2, and her recent cardiac work- up, the patient did not appear to require admission at this time. All of the lab and imaging results, the medication changes, and discussion with cardiology, were all discussed with the patient and she understands and agrees to the plan including outpatient follow-up. She will return to the emergency department with any worsening of her symptoms or with any acute distress. Critical Care Time: No Critical care attestation.: If time is entered above; I have spent that time in minutes in the direct care of this critically ill patient, excluding procedure time. ED Disposition Clinical Impression: Subtherapeutic anticoagulation, Generalized weakness, History of coronary artery disease, Dilated cardiomyopathy Disposition: 01 HOME / SELF CARE / HOMELESS Is pt being admited?: No Condition: Stable Instructions: Bleeding Precautions When on Anticoagulant Therapy, Adult, Stimulant Use Disorder-Cocaine, Cardiomyopathy, Adult, Weakness Additional Instructions: Please follow-up with your primary care physician in the next few days. Please follow-up with your tank insulator rubber in the next few days. Please avoid any further cocaine or illicit drug use. Please stop smoking cigarettes or cigars. Take all medications as prescribed. Return to the emergency department with any worsening of your symptoms, new or concerning symptoms not addressed during this current emergency department visit, or with any acute distress. Prescriptions: Apixaban [Eliquis] 5 mg PO BID #60 tablet Albuterol Mdi (or & Nicu Only) [ProAir HFA Inhaler] 2 puff IH QID PRN #8.5 gram PRN Reason: Shortness Of Breath ALBUTEROL NEB's [Proventil 0.083% NEBS] 2.5 mg IH TID PRN #1 box PRN Reason: Wheezing Referrals: KEL PALOMO MD [Staff Physician] - 2-3 Days PRIMARY CAREMD [Primary Care Provider] - 2-3 Days Time of Disposition: 15:48
[2020-12-10 14:09] VITALS: BP 120/99
[2020-12-10 14:20] LABS: Bilirubin,Urine NEG (Negative); Blood,Urine NEG (Negative); Color,Urine Yellow (Yellow); Mucus,Urine 1+ /HPF; Urobilinogen,Urine < 2.0 mg/dL (<2.0); WBC,Urine < 1.0 /HPF (0.0-6.0)
[2020-12-10 14:28] LABS: Amphetamine Screen,Urine Negative; Benzodiazepines Screen,Urine Negative; Methadone Screen,Urine Negative; Opiate Screen,Urine Negative
[2020-12-10 14:54] LABS: Cannabinoid Screen,Urine Positive; Cocaine Screen,Urine Positive
[2020-12-10 18:06] LABS: Total Cells Counted 100
[2020-12-10 18:07] LABS: Ovalocytes 1+; Platelet Estimate Consistent w Auto
--- NOTE | 2020-12-16 14:39 | Electrocardiograph Report ---
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
--- NOTE | 2020-12-16 14:40 | Electrocardiograph Report ---
[facility] Test Date: 2020-12-10 Test Time: 12:27:06 Pat Name: FELIPA STOUT Department: Room: Gender: F Recreation Manager: EKTA : 1970 Requested By: RALPH GARCIA Order Number: [id number] Reading MD: Hayley Palomo Measurements Intervals [place] Rate: 93 P: 15 OR: 141 QRS: -47 QRSD: 90 T: -36 QT: 390 QTc: 488 Interpretive Statements Sinus rhythm Ventricular premature complex Probable left atrial enlargement Left ventricular hypertrophy Inferior infarct, age indeterminate Anterior Q waves, possibly due to LVH Borderline ST elevation, lateral leads Compared to ECG 12/10/2020 12:08:39 No significant change Electronically Signed On 12-16-2020 14:39:35 EDT by Hayley Palomo
[2020-12-17] MEDS ORDERED: APIXABAN 5 MG TAB PO SCH (22:00)
== END 2020-12-10 16:08 | disposition home or self-care (01) ==
LOC: ED 09:51
DX: I42.0 Dilated cardiomyopathy (principal); I25.10 Atherosclerotic heart disease of native coronary artery without angina pectoris; D68.8 Other specified coagulation defects; R53.1 Weakness; I10 Essential (primary) hypertension; F31.9 Bipolar disorder, unspecified; J45.909 Unspecified asthma, uncomplicated; Z98.890 Other specified postprocedural states; F17.200 Nicotine dependence, unspecified, uncomplicated
CPT/HCPCS: 36415; 71046; 80053; 80307; 81001; 83880; 84484; 85007; 85025; 85610; 85730; 93005; 96374; 99284; J1940

== ENCOUNTER 2020-12-27 23:34 | Emergency (ER) | payer MEDICARE ==
[2020-12-27 23:42] VITALS: BP 116/89
[2020-12-28] MEDS ORDERED: IPRATROPIUM/ALBUTEROL SULFATE 3 ML AMPUL.NEB IH ONE (02:06)
[2020-12-28] MEDS ORDERED: predniSONE 20 MG TAB PO ONE (02:07)
[2020-12-28] MEDS ORDERED: ONDANSETRON 4 MG ODT TAB PO ONE (02:09)
--- NOTE | 2020-12-28 02:19 | Emergency Department Report ---
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 Patient has pain when she inhales or cough. She has productive sputum. She has discomfort when she lays flat at night. She feels chest fullness. She requests more antibiotics for pneumonia she was diagnosed a month ago. She continues to smoke cigarettes. MD Complaint: shortness of breath, cough, chest pain -: Gradual, days(s) (3 days) Severity: mild, moderate Consistency: constant Improves With: nothing Worsens With: lying flat Known History Of: asthma, congestive heart failure Associated Symptoms: fever, cough, sputum production Treatments Prior to Arrival: none - Related Data Previous Rx's Medication Instructions Recorded Last Taken Type AtorvaSTATin [Lipitor] 40 mg PO QHS #30 tab 04/16/20 Unknown Rx Pantoprazole [Protonix TAB] 40 mg PO QDAC #30 tablet 04/16/20 Unknown Rx Clopidogrel [Plavix] 75 mg PO QDAY #30 tablet 10/08/20 Unknown Rx Folic Acid [Folvite] 1 mg PO QDAY #30 tablet 10/08/20 Unknown Rx Metoprolol [Lopressor TAB] 50 mg PO BID #60 tablet 10/08/20 Unknown Rx Spironolactone [Aldactone] 25 mg PO QDAY #30 tablet 10/08/20 Unknown Rx lisinopriL [Zestril TAB] 5 mg PO QDAY #30 tablet 10/08/20 Unknown Rx risperiDONE [RisperDAL] 0.25 mg PO BID #30 tablet 10/08/20 Unknown Rx traZODone [Desyrel] 50 mg PO QHS #14 tablet 10/08/20 Unknown Rx Docusate Sodium [Colace] 100 mg PO BID #60 capsule 11/06/20 Unknown Rx Ferrous Sulfate [Feosol 325 MG tab] 325 mg PO BID #60 tablet 11/06/20 Unknown Rx ISOSORBIDE MONOnitrate [Imdur ER] 30 mg PO QDAY #30 tablet 11/06/20 Unknown Rx ALBUTEROL NEB's [Proventil 0.083% 2.5 mg IH TID PRN #1 box 12/10/20 Unknown Rx NEBS] Albuterol Mdi (or & Nicu Only) 2 puff IH QID PRN #8.5 gram 12/10/20 Unknown Rx [ProAir HFA Inhaler] Apixaban [Eliquis] 5 mg PO BID #60 tablet 12/10/20 Unknown Rx Doxycycline Hyclate 100 mg PO BID 10 Days #20 capsule 12/28/20 Unknown Rx HYDROcodone/APAP 5-325 [M[place]arley 1 each PO Q4HR PRN #10 tablet 12/28/20 Unknown Rx 5/325] Allergies Allergy/AdvReac Type Severity Reaction Status Date / Time aspirin Allergy Swelling Verified 12/27/20 23:43 ED Review of Systems ROS: Stated complaint: GENERAL ILLNESS Other details as noted in HPI Comment: All other systems reviewed and negative Constitutional: chills, fever Respiratory: cough, shortness of breath, wheezing Cardiovascular: chest pain Gastrointestinal: nausea. denies: abdominal pain ED Past Medical Hx - Past Medical History Previous Medical History?: Yes Hx Hypertension: Yes Hx Congestive Heart Failure: No Hx Diabetes: No Hx Psychiatric Treatment: Yes (bipolar) Hx Asthma: Yes Hx COPD: No - Surgical History Past Surgical History?: Yes Additional Surgical History: - Social History Smoking Status: Current Every Day Smoker Substance Use Type: Alcohol - Medications Home Medications: Home Medications Medication Instructions Recorded Confirmed Last Taken Type AtorvaSTATin [Lipitor] 40 mg PO QHS #30 tab 04/16/20 10/30/20 Unknown Rx Pantoprazole [Protonix TAB] 40 mg PO QDAC #30 tablet 04/16/20 10/30/20 Unknown R x Clopidogrel [Plavix] 75 mg PO QDAY #30 tablet 10/08/20 10/30/20 Unknown Rx Folic Acid [Folvite] 1 mg PO QDAY #30 tablet 10/08/20 10/30/20 Unknown Rx Metoprolol [Lopressor TAB] 50 mg PO BID #60 tablet 10/08/20 10/30/20 Unknown Rx Spironolactone [Aldactone] 25 mg PO QDAY #30 tablet 10/08/20 10/30/20 Unknown Rx lisinopriL [Zestril TAB] 5 mg PO QDAY #30 tablet 10/08/20 10/30/20 Unknown Rx risperiDONE [RisperDAL] 0.25 mg PO BID #30 tablet 10/08/20 10/30/20 Unknown Rx traZODone [Desyrel] 50 mg PO QHS #14 tablet 10/08/20 10/30/20 Unknown Rx Docusate Sodium [Colace] 100 mg PO BID #60 capsule 11/06/20 Unknown Rx Ferrous Sulfate [Feosol 325 MG tab] 325 mg PO BID #60 tablet 11/06/20 Unknown Rx ISOSORBIDE MONOnitrate [Imdur ER] 30 mg PO QDAY #30 tablet 11/06/20 Unknown Rx ALBUTEROL NEB's [Proventil 0.083% 2.5 mg IH TID PRN #1 box 12/10/20 Unknown Rx NEBS] Albuterol Mdi (or & Nicu Only) 2 puff IH QID PRN #8.5 gram 12/10/20 Unknown Rx [ProAir HFA Inhaler] Apixaban [Eliquis] 5 mg PO BID #60 tablet 12/10/20 Unknown Rx Doxycycline Hyclate 100 mg PO BID 10 Days #20 capsule 12/28/20 Unknown Rx HYDROcodone/APAP 5-325 [[place]ar[place] 1 each PO Q4HR PRN #10 tablet 12/28/20 Unknown Rx 5/325] ED Physical Exam - General Limitations: No Limitations General appearance: alert, in no apparent distress, other (Speaking full word sentences no respiratory distress no work of breathing) - Head Head exam: Present: atraumatic, normocephalic - Eye Eye exam: Present: normal appearance - ENT ENT exam: Present: mucous membranes moist - Neck Neck exam: Present: normal inspection, full ROM - Respiratory Respiratory exam: Present: normal lung sounds bilaterally. Absent: respiratory distress, wheezes, rales, rhonchi - Cardiovascular Cardiovascular Exam: Present: regular rate, normal rhythm, normal heart sounds. Absent: systolic murmur, diastolic murmur, rubs, gallop - GI/Abdominal GI/Abdominal exam: Present: soft, normal bowel sounds. Absent: distended, tenderness, guarding, rebound - Extremities Exam Extremities exam: Present: normal inspection - Neurological Exam Neurological exam: Present: alert, oriented X3 - Psychiatric Psychiatric exam: Present: normal affect, normal mood - Skin Skin exam: Present: warm, dry, intact, normal color. Absent: rash ED Course Vital Signs 12/27/20 23:42 Temperature 97.8 F Pulse Rate 97 H Respiratory 18 Rate Blood Pressure 116/89 [Left] O2 Sat by Pulse 100 Oximetry ED Medical Decision Making - Lab Data Result diagrams: 12/28/20 02:13 12/28/20 02:13 - Radiology Data Radiology results: report reviewed Patient Name: FELIPA STOUT Gender: Female Date of : 1970 Referring Provider: RAVINDRA TAYLOR Organization: [facility] Accession Number: [id number] Requested Date: December 28, 2020 02:05 Report Status: Final Requested Procedure: 1 Procedure Description: XR chest routine 2V Modality: XR Findings Reporting MD: Rosales Gentile Dictation Time: December 28, 2020 03:35 Artificial Breast Fabricator: Not available Transportation Attendant Date: CHEST PA AND LATERAL VIEWS INDICATION: chest pain shortness of breath. COMPARISON: 12/10/2020 FINDINGS: Support devices: None. Heart: Enlarged, unchanged. Lungs/Pleura: There is mild airspace disease throughout the right lung. There is a trace right pleural effusion. Left lung appears clear. IMPRESSION: 1. Mild diffuse right lung opacities are concerning for pneumonia but nonspecific. There may be a trace right pleural effusion. Signer Name: Rosales Gentile MD Signed: 12/28/2020 3:35 AM Workstation Name: [id number] - Medical Decision Making Community-acquired pneumonia: Patient prescribed doxycycline Mccarley. Patient informed that INR is nontherapeutic. Unclear if she is medically compliant. Referred to her plant control operator Dr. Acevedo CBC chemistry within normal limits. Critical care attestation.: If time is entered above; I have spent that time in minutes in the direct care of this critically ill patient, excluding procedure time. ED Disposition Clinical Impression: Community acquired pneumonia, Subtherapeutic international normalized ratio (INR) Disposition: 01 HOME / SELF CARE / HOMELESS Is pt being admited?: No Does the pt Need Aspirin: No Condition: Stable Instructions: Bacterial Pneumonia (ED), Community-Acquired Pneumonia, Adult, [id number] Prescriptions: Doxycycline Hyclate 100 mg PO BID 10 Days #20 capsule HYDROcodone/APAP 5-325 [Mccarley 5/325] 1 each PO Q4HR PRN #10 tablet PRN Reason: Pain Referrals: KEL ACEVEDO MD [Staff Physician] - 3-5 Days
[2020-12-28 02:55] LABS: Mean Corpuscular HGB Conc 30 % (30-34); Mean Corpuscular Volume 81 fl (79-97); Platelet Count 270 K/mm3 (140-440); Red Blood Count 4.76 M/mm3 (3.65-5.03)
[2020-12-28 02:59] LABS: Hematocrit 38.5 % (30.3-42.9); Hemoglobin 11.5 gm/dl (10.1-14.3)
[2020-12-28 03:00] LABS: Red Cell Distribution Width 26.3 % (13.2-15.2)
[2020-12-28 03:04] LABS: INR 0.99 (0.87-1.13)
[2020-12-28 03:18] LABS: BUN/Creatinine Ratio 17; Blood Urea Nitrogen 17 mg/dL (7-17); Calcium 8.4 mg/dL (8.4-10.2); Hemolysis Index 39
[2020-12-28 04:06] LABS: Total Cells Counted 100
[2020-12-28 04:07] LABS: Anisocytosis 3+; Hypochromasia 1+; Large Platelets Few; Ovalocytes 1+
[2020-12-28 04:08] LABS: Platelet Estimate Consistent w Auto; Poikilocytosis 1+; Tear Drop Cells 1+
--- NOTE | 2020-12-28 04:39 | XRay Report ---
CHEST PA AND LATERAL VIEWS INDICATION: chest pain shortness of breath. COMPARISON: 12/10/2020 FINDINGS: Support devices: None. Heart: Enlarged, unchanged. Lungs/Pleura: There is mild airspace disease throughout the right lung. There is a trace right pleura l effusion. Left lung appears clear. IMPRESSION: 1. Mild diffuse right lung opacities are concerning for pneumonia but nonspecific. There may be a tra ce right pleural effusion. Signer Name: Rosales Gentile MD Signed: 12/28/2020 4:35 AM Workstation Name: [id number]
[2020-12-28] MEDS ORDERED: HYDROcodone/ACETAMINOPHEN 5-325 MG TAB PO ONE (05:32)
== END 2020-12-28 05:56 | disposition home or self-care (01) ==
LOC: ED 23:34
DX: J18.9 Pneumonia, unspecified organism (principal); D68.8 Other specified coagulation defects; F17.200 Nicotine dependence, unspecified, uncomplicated; F10.20 Alcohol dependence, uncomplicated; I10 Essential (primary) hypertension; F31.9 Bipolar disorder, unspecified; Z88.6 Allergy status to analgesic agent
CPT/HCPCS: 36415; 71046; 80048; 83880; 84484; 85007; 85025; 85610; 94640; 99284; J7512; Q0162

== ENCOUNTER 2020-12-29 13:54 | Emergency (ER) | payer MEDICARE ==
[2020-12-29 14:51] VITALS: BP 136/115
[2020-12-29] MEDS ORDERED: diphenhydrAMINE 25 MG CAP PO ONE (15:16)
[2020-12-29] MEDS ORDERED: methylPREDNISolone Sod Succinate 125 MG/2 ML INJ IM ONE (15:16)
--- NOTE | 2020-12-29 16:00 | Emergency Department Report ---
ED Allergic Reaction HPI - General Chief complaint: Dyspnea/Respdistress Stated complaint: PNUEMONIA ,BAD REACTION TO MEDS Time Seen by Provider: 12/29/20 14:42 Source: patient Mode of arrival: Ambulatory Limitations: No Limitations - History of Present Illness Initial Comments: 50-year-old female presents to ED reporting allergic reaction to the antibiotics that she was given on yesterday. Patient was diagnosed with pneumonia given prescription for doxycycline. Patient states when she took the medication today she began having swelling all over her body and a rash. MD Complaint: allergic reaction -: This afternoon Symptoms: rash, itching. denies: facial swelling, lip swelling, difficulty swallowing, difficulty breathing, orolingual swelling, nausea, vomiting Severity: mild Treatment Prior to Arrival: none - Related Data Previous Rx's Medication Instructions Recorded Last Taken Type AtorvaSTATin [Lipitor] 40 mg PO QHS #30 tab 04/16/20 Unknown Rx Pantoprazole [Protonix TAB] 40 mg PO QDAC #30 tablet 04/16/20 Unknown Rx Clopidogrel [Plavix] 75 mg PO QDAY #30 tablet 10/08/20 Unknown Rx Folic Acid [Folvite] 1 mg PO QDAY #30 tablet 10/08/20 Unknown Rx Metoprolol [Lopressor TAB] 50 mg PO BID #60 tablet 10/08/20 Unknown Rx Spironolactone [Aldactone] 25 mg PO QDAY #30 tablet 10/08/20 Unknown Rx lisinopriL [Zestril TAB] 5 mg PO QDAY #30 tablet 10/08/20 Unknown Rx risperiDONE [RisperDAL] 0.25 mg PO BID #30 tablet 10/08/20 Unknown Rx traZODone [Desyrel] 50 mg PO QHS #14 tablet 10/08/20 Unknown Rx Docusate Sodium [Colace] 100 mg PO BID #60 capsule 11/06/20 Unknown Rx Ferrous Sulfate [Feosol 325 MG tab] 325 mg PO BID #60 tablet 11/06/20 Unknown Rx ISOSORBIDE MONOnitrate [Imdur ER] 30 mg PO QDAY #30 tablet 11/06/20 Unknown Rx ALBUTEROL NEB's [Proventil 0.083% 2.5 mg IH TID PRN #1 box 12/10/20 Unknown Rx NEBS] Albuterol Mdi (or & Nicu Only) 2 puff IH QID PRN #8.5 gram 12/10/20 Unknown Rx [ProAir HFA Inhaler] Apixaban [Eliquis] 5 mg PO BID #60 tablet 12/10/20 Unknown Rx Doxycycline Hyclate 100 mg PO BID 10 Days #20 capsule 12/28/20 Unknown Rx HYDROcodone/APAP 5-325 [[place] 1 each PO Q4HR PRN #10 tablet 12/28/20 Unknown Rx 5/325] Azithromycin [Zithromax TAB] 250 mg PO QDAY #4 tablet 12/29/20 Unknown Rx predniSONE [Deltasone] 50 mg PO QDAY #5 tab 12/29/20 Unknown Rx Allergies Allergy/AdvReac Type Severity Reaction Status Date / Time aspirin Allergy Swelling Verified 12/29/20 14:04 ED Review of Systems ROS: Stated complaint: PNUEMONIA ,BAD REACTION TO MEDS Other details as noted in HPI Comment: All other systems reviewed and negative Respiratory: cough Skin: rash ED Past Medical Hx - Past Medical History Hx Hypertension: Yes Hx Congestive Heart Failure: No Hx Diabetes: No Hx Psychiatric Treatment: Yes (bipolar) Hx Asthma: Yes Hx COPD: No - Surgical History Additional Surgical History: - Social History Smoking Status: Current Every Day Smoker Substance Use Type: Alcohol - Medications Home Medications: Home Medications Medication Instructions Recorded Confirmed Last Taken Type AtorvaSTATin [Lipitor] 40 mg PO QHS #30 tab 04/16/20 10/30/20 Unknown Rx Pantoprazole [Protonix TAB] 40 mg PO QDAC #30 tablet 04/16/20 10/30/20 Unknown Rx Clopidogrel [Plavix] 75 mg PO QDAY #30 tablet 10/08/20 10/30/20 Unknown Rx Folic Acid [Folvite] 1 mg PO QDAY #30 tablet 10/08/20 10/30/20 Unknown Rx Metoprolol [Lopressor TAB] 50 mg PO BID #60 tablet 10/08/20 10/30/20 Unknown Rx Spironolactone [Aldactone] 25 mg PO QDAY #30 tablet 10/08/20 10/30/20 Unknown Rx lisinopriL [Zestril TAB] 5 mg PO QDAY #30 tablet 10/08/20 10/30/20 Unknown Rx risperiDONE [RisperDAL] 0.25 mg PO BID #30 tablet 10/08/20 10/30/20 Unknown Rx traZODone [Desyrel] 50 mg PO QHS #14 tablet 10/08/20 10/30/20 Unknown Rx Docusate Sodium [Colace] 100 mg PO BID #60 capsule 11/06/20 Unknown Rx Ferrous Sulfate [Feosol 325 MG tab] 325 mg PO BID #60 tablet 11/06/20 Unknown Rx ISOSORBIDE MONOnitrate [Imdur ER] 30 mg PO QDAY #30 tablet 11/06/20 Unknown Rx ALBUTEROL NEB's [Proventil 0.083% 2.5 mg IH TID PRN #1 box 12/10/20 Unknown Rx NEBS] Albuterol Mdi (or & Nicu Only) 2 puff IH QID PRN #8.5 gram 12/10/20 Unknown Rx [ProAir HFA Inhaler] Apixaban [Eliquis] 5 mg PO BID #60 tablet 12/10/20 Unknown Rx Doxycycline Hyclate 100 mg PO BID 10 Days #20 capsule 12/28/20 Unknown Rx HYDROcodone/APAP 5-325 [[place] 1 each PO Q4HR PRN #10 tablet 12/28/20 Unknown Rx 5/325] Azithromycin [Zithromax TAB] 250 mg PO QDAY #4 tablet 12/29/20 Unknown Rx predniSONE [Deltasone] 50 mg PO QDAY #5 tab 12/29/20 Unknown Rx ED Physical Exam - General Limitations: No Limitations General appearance: alert, in no apparent distress - Head Head exam: Present: atraumatic, normocephalic - Eye Eye exam: Present: normal appearance, EOMI - ENT ENT exam: Present: normal orophraynx, mucous membranes moist - Neck Neck exam: Present: normal inspection - Respiratory Respiratory exam: Present: normal lung sounds bilaterally. Absent: respiratory distress, wheezes - Cardiovascular Cardiovascular Exam: Present: normal rhythm, tachycardia - GI/Abdominal GI/Abdominal exam: Present: soft. Absent: distended, tenderness - Extremities Exam Extremities exam: Present: normal inspection - Neurological Exam Neurological exam: Present: alert, oriented X3 - Psychiatric Psychiatric exam: Present: normal affect, normal mood - Skin Skin exam: Present: warm, dry, intact, normal color. Absent: rash ED Course Vital Signs 12/29/20 12/29/20 14:05 14:50 Temperature 97.8 F 98.4 F Pulse Rate 111 H 108 H Respiratory 20 20 Rate Blood Pressure 146/112 136/115 [Left] O2 Sat by Pulse 100 100 Oximetry ED Medical Decision Making - Medical Decision Making Patient reports allergic reaction after taking doxycycline. No evidence of rash or swelling on exam. Patient is in no respiratory distress at this time. She was given Benadryl and Solu-Medrol. Patient is stable. We will switch antibiotic from doxycycline to azithromycin upon discharge. Outpatient follow- up advised, return precautions given. - Differential Diagnosis Allergic reaction Critical care attestation.: If time is entered above; I have spent that time in minutes in the direct care of this critically ill patient, excluding procedure time. ED Disposition Clinical Impression: Allergic reaction Disposition: 01 HOME / SELF CARE / HOMELESS Is pt being admited?: No Condition: Stable Instructions: Allergies, Adult, Nmyl-tk-Lonh Prescriptions: predniSONE [Deltasone] 50 mg PO QDAY #5 tab Azithromycin [Zithromax TAB] 250 mg PO QDAY #4 tablet Referrals: PRIMARY CARE, [Primary Care Provider] - 3-5 Days Time of Disposition: 16:05
== END 2020-12-29 16:24 | disposition home or self-care (01) ==
LOC: ED 13:54
DX: R21 Rash and other nonspecific skin eruption (principal); T50.905A Adverse effect of unspecified drugs, medicaments and biological substances, initial encounter; R60.9 Edema, unspecified; I10 Essential (primary) hypertension; F31.9 Bipolar disorder, unspecified; J45.909 Unspecified asthma, uncomplicated; Z98.890 Other specified postprocedural states; F17.200 Nicotine dependence, unspecified, uncomplicated; Z88.8 Allergy status to other drugs, medicaments and biological substances; Y92.89 Other specified places as the place of occurrence of the external cause
CPT/HCPCS: 96372; 99282; J2930

== ENCOUNTER 2021-01-01 16:08 | Emergency (ER) | payer MEDICARE ==
--- NOTE | 2021-01-01 19:14 | Emergency Department Report ---
HPI - General Chief Complaint: Extremity Injury, Lower Time Seen by Provider: 01/01/21 18:43 - HPI HPI: Room 31 The patient is a 50-year-old female present with a chief complaint of left lower extremity pain and coldness. The patient states for approximately months she has had pain, discoloration and coldness in her left lower extremity. Patient states that putting on socks can be painful and she has difficulty standing secondary to the pain. The patient states she went to [facility] last week and had venous and arterial Dopplers showed active blood flow and did not find any DVTs. Patient states she has not yet seen a vascular surgeon for the symptoms. Of note the patient states she was diagnosed with pneumonia last week but she is allergic to the antibiotics she was prescribed. ED Past Medical Hx - Past Medical History Previous Medical History?: Yes Hx Hypertension: Yes Hx Psychiatric Treatment: Yes (bipolar) Hx Asthma: Yes - Surgical History Past Surgical History?: Yes Additional Surgical History: - Social History Smoking Status: Current Every Day Smoker (2 cigarettes a day) Substance Use Type: None (Denies illicit drug use), Alcohol (Occasional) - Medications Home Medications: Home Medications Medication Instructions Recorded Confirmed Last Taken Type AtorvaSTATin [Lipitor] 40 mg PO QHS #30 tab 04/16/20 10/30/20 Unknown Rx Pantoprazole [Protonix TAB] 40 mg PO QDAC #30 tablet 04/16/20 10/30/20 Unknown Rx Clopidogrel [Plavix] 75 mg PO QDAY #30 tablet 10/08/20 10/30/20 Unknown Rx Folic Acid [Folvite] 1 mg PO QDAY #30 tablet 10/08/20 10/30/20 Unknown Rx Metoprolol [Lopressor TAB] 50 mg PO BID #60 tablet 10/08/20 10/30/20 Unknown Rx Spironolactone [Aldactone] 25 mg PO QDAY #30 tablet 10/08/20 10/30/20 Unknown Rx lisinopriL [Zestril TAB] 5 mg PO QDAY #30 tablet 10/08/20 10/30/20 Unknown Rx risperiDONE [RisperDAL] 0.25 mg PO BID #30 tablet 10/08/20 10/30/20 Unknown Rx traZODone [Desyrel] 50 mg PO QHS #14 tablet 10/08/20 10/30/20 Unknown Rx Docusate Sodium [Colace] 100 mg PO BID #60 capsule 11/06/20 Unknown Rx Ferrous Sulfate [Feosol 325 MG tab] 325 mg PO BID #60 tablet 11/06/20 Unknown Rx ISOSORBIDE MONOnitrate [Imdur ER] 30 mg PO QDAY #30 tablet 11/06/20 Unknown Rx ALBUTEROL NEB's [Proventil 0.083% 2.5 mg IH TID PRN #1 box 12/10/20 Unknown Rx NEBS] Albuterol Mdi (or & Nicu Only) 2 puff IH QID PRN #8.5 gram 12/10/20 Unknown Rx [ProAir HFA Inhaler] Apixaban [Eliquis] 5 mg PO BID #60 tablet 12/10/20 Unknown Rx Doxycycline Hyclate 100 mg PO BID 10 Days #20 capsule 12/28/20 Unknown Rx HYDROcodone/APAP 5-325 [[place] 1 each PO Q4HR PRN #10 tablet 12/28/20 Unknown Rx 5/325] Azithromycin [Zithromax TAB] 250 mg PO QDAY #4 tablet 12/29/20 Unknown Rx predniSONE [Deltasone] 50 mg PO QDAY #5 tab 12/29/20 Unknown Rx HYDROcodone/APAP 5-325 [[place] 1 - 2 each PO Q6HR PRN #14 tablet 01/02/21 Unknown Rx 5/325] ED Review of Systems ROS: Stated complaint: ALLERGIC REACTION Other details as noted in HPI Constitutional: no symptoms reported Eyes: denies: eye pain ENT: denies: throat pain Respiratory: cough Cardiovascular: denies: chest pain Endocrine: no symptoms reported Gastrointestinal: denies: abdominal pain Musculoskeletal: myalgia Skin: change in color Neurological: denies: headache Physical Exam - Physical Exam Vital Signs: Vital Signs 01/01/21 01/01/21 16:15 16:26 Temperature 98.7 F 98.7 F Pulse Rate 108 H 90 Respiratory 18 14 Rate Blood Pressure 134/100 178/114 [Right] O2 Sat by Pulse 96 98 Oximetry Physical Exam: GENERAL: The patient is well-developed well-nourished female lying on chair not appearing to be in acute HEENT: Normocephalic. Atraumatic. Extraocular motions are intact. Patient has moist mucous membranes. NECK: Supple. Trachea midline CHEST/LUNGS: Clear to auscultation. There is no respiratory distress noted. HEART/CARDIOVASCULAR: Regular. There is no tachycardia. There is no gallop rub or murmur. Dopplerable good left PT pulse and dopplerable faint left DP pulse ABDOMEN: Abdomen is soft, nontender. Patient has normal bowel sounds. There is no abdominal distention. SKIN: There is no rash. There is no edema. There is no diaphoresis. NEURO: The patient is awake, alert, and oriented. The patient is cooperative. The patient has no focal neurologic deficits. The patient has normal speech. GCS 15. Patient able to move left foot at the ankle as well as wiggle the toes. MUSCULOSKELETAL: There is no evidence of acute injury. ED Course Vital Signs 01/01/21 01/01/21 16:15 16:26 Temperature 98.7 F 98.7 F Pulse Rate 108 H 90 Respiratory 18 14 Rate Blood Pressure 134/100 178/114 [Right] O2 Sat by Pulse 96 98 Oximetry - Consultations Consultation #1: 01/01/21 19:15 Vascular surgery paged 01/01/21 19:45 Case discussed with vascular surgeon Dr. Miles-recommend CTA abdomen pelvis with bilateral lower extremity runoffs ED Medical Decision Making - Lab Data Result diagrams: 01/01/21 19:23 01/01/21 19:23 Laboratory Tests 01/01/21 01/01/21 19:23 19:23 WBC 6.4 RBC 5.28 H Hgb 12.9 Hct 42.3 MCV 80 MCH 24 L MCHC 30 RDW 25.0 H Plt Count 243 Add Manual Diff Complete Total Counted 100 Seg Neutrophils % Commercial Installer Seg Neuts % (Manual) 88.0 H Lymphocytes % (Manual) 7.0 L Monocytes % (Manual) 5.0 Nucleated RBC % Not Reportable Seg Neutrophils # Man 5.6 Band Neutrophils # 0.0 Lymphocytes # (Manual) 0.4 L Abs React Lymphs (Man) 0.0 Monocytes # (Manual) 0.3 Eosinophils # (Manual) 0.0 Basophils # (Manual) 0.0 Metamyelocytes # 0.0 Myelocytes # 0.0 Promyelocytes # 0.0 Blast Cells # 0.0 WBC Morphology Not Reportable Hypersegmented Neuts Not Reportable Hyposegmented Neuts Not Reportable Hypogranular Neuts Not Reportable Smudge Cells Not Reportable Toxic Granulation Not Reportable Toxic Vacuolation Not Reportable Dohle Bodies Not Reportable Pelger-Huet Anomaly Not Reportable Luz Maria Rods Not Reportable Platelet Estimate Not Reportable Clumped Platelets Not Reportable Plt Clumps, EDTA Not Reportable Large Platelets Rare Giant Platelets Not Reportable Platelet Satelliting Not Reportable Plt Morphology Comment Not Reportable RBC Morphology Not Reportable Dimorphic RBCs Not Reportable Polychromasia 1+ Hypochromasia 1+ Poikilocytosis 1+ Anisocytosis 3+ Microcytosis Rare Macrocytosis Not Reportable Spherocytes Not Reportable Pappenheimer Bodies Not Reportable Sickle Cells Not Reportable Target Cells Not Reportable Tear Drop Cells 1+ Ovalocytes 1+ Helmet Cells Not Reportable Martin-Helemano Bodies Not Reportable Vanderwagen Rings Not Reportable Josephine Cells Not Reportable Bite Cells Not Reportable Crenated Cell Not Reportable Elliptocytes 2+ Acanthocytes (Spur) Not Reportable Rouleaux Not Reportable Hemoglobin C Crystals Not Reportable Schistocytes Not Reportable Malaria parasites Not Reportable Mamadou Bodies Not Reportable Hem Pathologist Commnt No Sodium 136 L D Potassium 4.9 Chloride 102.5 Carbon Dioxide 20 L Anion Gap 18 BUN 25 H Creatinine 0.8 Estimated GFR > 60 BUN/Creatinine Ratio 31 Glucose 119 H Calcium 8.2 L - Radiology Data Radiology results: report reviewed (Chest x-ray), image reviewed (Chest x-ray, CTA abdomen pelvis with bilateral lower extremity runoff) interpreted by me: Chest x-ray-no definite focal infiltrate, no [facility] [address] [place] [address] XRay Report Signed Patient: FELIPA STOUT MR#: [id number] : 1970 Acct:[id number] Age/Sex: 50 / F ADM Date: 01/01/21 Loc: ED Attending Dr: Ordering Physician: KATHLEEN FIELDS MD Date of Service: 01/01/21 Procedure(s): XR chest routine 2V Accession Number(s): [id number] cc: KATHLEEN FIELDS MD Fluoro Time In Minutes: CHEST 2 VIEWS INDICATION / CLINICAL INFORMATION: Cough. COMPARISON: 12/28/2020 FINDINGS: SUPPORT DEVICES: None. HEART / MEDIASTINUM: No significant abnormality. LUNGS / PLEURA: No significant pulmonary or pleural abnormality. No pneumothorax. ADDITIONAL FINDINGS: No significant additional findings. IMPRESSION: 1. No acute findings. Signer Name: Miah Austin DO Signed: 01/01/2021 7:57 PM Workstation Name: [id number] Transcribed By: GIANFRANCO Dictated By: MIAH AUSTIN DO Electronically Authenticated By: MIAH AUSTIN DO Signed Date/Time: 01/01/211956 DD/ 56 TD/TT: Print Cancel [facility] [address] [place] [address] Cat Scan Report Signed Patient: FELIPA STOUT MR#: [id number] : 1970 Acct:[id number] Age/Sex: 50 / F ADM Date: 01/01/21 Loc: ED Attending Dr: Ordering Physician: KATHLEEN FIELDS MD Date of Service: 01/01/21 Procedure(s): CT angio abd/femoral abd aorta Accession Number(s): [id number] cc: KATHLEEN FIELDS MD CTA ABDOMEN, PELVIS, AND LOWER EXTREMITIES WITH CONTRAST INDICATION / CLINICAL INFORMATION: Left lower extremity cool and painful. TECHNIQUE: Axial CT images were obtained through the abdomen, pelvis and lower extremities after injection of 100 mL Omnipaque 350 IV contrast. 3 plane MIP / 3D reconstructions were produced. All CT scans at this location are performed using CT dose reduction for ALARA by means of automated exposure control. COMPARISON: None available. FINDINGS: CTA ABDOMEN: Abdominal Aorta: No significant abnormality. Celiac Artery: No significant abnormality. Superior Mesenteric Artery: No significant abnormality. Right Renal Artery: No significant abnormality. Left Renal Artery: No significant abnormality. Inferior Mesenteric Artery: No significant abnormality. CTA PELVIS: RIGHT: - Common Iliac Artery: Torturous but no acute abnormality. - Internal Iliac Artery: No significant abnormality. - External Iliac Artery: No significant abnormality. LEFT: - Common Iliac Artery: No significant abnormality. - Internal Iliac Artery: No significant abnormality. - External Iliac Artery: No significant abnormality. CTA LOWER EXTREMITIES: RIGHT LOWER EXTREMITY: - Common Femoral Artery: No significant abnormality. - Superficial Femoral Artery: No significant abnormality. - Profunda Femoral Artery: No significant abnormality. - Popliteal Artery: No significant abnormality. - Anterior Tibial Artery: No significant abnormality. - Tibioperoneal Trunk: No significant abnormality. - Posterior Tibial Artery: No significant abnormality. - Peroneal Artery: No significant abnormality. - Ankle runoff: Three vessel. LEFT LOWER EXTREMITY: - Common Femoral Artery: No significant abnormality. - Superficial Femoral Artery: No significant abnormality. - Profunda Femoral Artery: No significant abnormality. - Popliteal Artery: No significant abnormality. - Anterior Tibial Artery: No significant abnormality. - Tibioperoneal Trunk: No significant abnormality. - Posterior Tibial Artery: No significant abnormality. - Peroneal Artery: No significant abnormality. - Ankle runoff: Three vessel. NONTARGET STRUCTURES: ABDOMEN:No significant abnormality. PELVIS:Small amount of free fluid in the pelvis. Moderate body wall edema. LOWER EXTREMITIES:Moderate soft tissue edema throughout both lower cavities. SKELETAL: No significant abnormality. ADDITIONAL FINDINGS: Heart is moderately enlarged. IMPRESSION: 1. No significant stenosis or occlusion of the abdominal aorta or either lower extremity arteries. 2. Small amount of free fluid in the pelvis with moderate body wall and lower extremity soft tissue edema which can be seen in anasarca or other fluid imbalance. Signer Name: Alondra Arriaga MD Signed: 01/02/2021 1:31 AM Workstation Name: [id number] Transcribed By: DT Dictated By: Alber Arriaga MD Electronically Authenticated By: Alber Arriaga MD Signed Date/Time: 01/02/21130 DD/ 7 TD/TT: Print Cancel - Differential Diagnosis Peripheral arterial disease, pneumonia Critical care attestation.: If time is entered above; I have spent that time in minutes in the direct care of this critically ill patient, excluding procedure time. ED Disposition Clinical Impression: Left leg pain Disposition: HOME / SELF CARE / HOMELESS Is pt being admited?: No Does the pt Need Aspirin: No Condition: Stable Additional Instructions: Return to the emergency department should you develop worsening symptoms, inability to tolerate food or liquids, high fever or any other concerns Prescriptions: HYDROcodone/APAP 5-325 [[place] 5/325] 1 - 2 each PO Q6HR PRN #14 tablet PRN Reason: Pain Referrals: [facility] MD KENYON [Primary Care Provider] - 3-5 Days NEIDA MILES MD [Staff Physician] - 3-5 Days (Dr. Miles is a vascular surgeon. Please follow-up with him for further evaluation) Time of Disposition: 01:49
[2021-01-01 19:43] LABS: Mean Corpuscular HGB Conc 30 % (30-34); Mean Corpuscular Volume 80 fl (79-97); Platelet Count 243 K/mm3 (140-440); Red Blood Count 5.28 M/mm3 (3.65-5.03)
[2021-01-01 19:46] LABS: Hematocrit 42.3 % (30.3-42.9); Hemoglobin 12.9 gm/dl (10.1-14.3)
[2021-01-01 20:00] LABS: BUN/Creatinine Ratio 31; Blood Urea Nitrogen 25 mg/dL (7-17); Calcium 8.2 mg/dL (8.4-10.2); Hemolysis Index 12
--- NOTE | 2021-01-01 20:02 | XRay Report ---
CHEST 2 VIEWS INDICATION / CLINICAL INFORMATION: Cough. COMPARISON: 12/28/2020 FINDINGS: SUPPORT DEVICES: None. HEART / MEDIASTINUM: No significant abnormality. LUNGS / PLEURA: No significant pulmonary or pleural abnormality. No pneumothorax. ADDITIONAL FINDINGS: No significant additional findings. IMPRESSION: 1. No acute findings. Signer Name: Miah Guzman DO Signed: 01/01/2021 7:57 PM Workstation Name: [id number]
[2021-01-01 21:56] LABS: Anisocytosis 3+; Hypochromasia 1+; Ovalocytes 1+; Poikilocytosis 1+; Tear Drop Cells 1+; Total Cells Counted 100
[2021-01-01 21:57] LABS: Large Platelets Rare
--- NOTE | 2021-01-02 01:36 | Cat Scan Report ---
CTA ABDOMEN, PELVIS, AND LOWER EXTREMITIES WITH CONTRAST INDICATION / CLINICAL INFORMATION: Left lower extremity cool and painful. TECHNIQUE: Axial CT images were obtained through the abdomen, pelvis and lower extremities after inje ction of 100 mL Omnipaque 350 IV contrast. 3 plane MIP / 3D reconstructions were produced. All CT sca ns at this location are performed using CT dose reduction for ALARA by means of automated exposure co ntrol. COMPARISON: None available. FINDINGS: CTA ABDOMEN: Abdominal Aorta: No significant abnormality. Celiac Artery: No significant abnormality. Superior Mesenteric Artery: No significant abnormality. Right Renal Artery: No significant abnormality. Left Renal Artery: No significant abnormality. Inferior Mesenteric Artery: No significant abnormality. CTA PELVIS: RIGHT: - Common Iliac Artery: Torturous but no acute abnormality. - Internal Iliac Artery: No significant abnormality. - External Iliac Artery: No significant abnormality. LEFT: - Common Iliac Artery: No significant abnormality. - Internal Iliac Artery: No significant abnormality. - External Iliac Artery: No significant abnormality. CTA LOWER EXTREMITIES: RIGHT LOWER EXTREMITY: - Common Femoral Artery: No significant abnormality. - Superficial Femoral Artery: No significant abnormality. - Profunda Femoral Artery: No significant abnormality. - Popliteal Artery: No significant abnormality. - Anterior Tibial Artery: No significant abnormality. - Tibioperoneal Trunk: No significant abnormality. - Posterior Tibial Artery: No significant abnormality. - Peroneal Artery: No significant abnormality. - Ankle runoff: Three vessel. LEFT LOWER EXTREMITY: - Common Femoral Artery: No significant abnormality. - Superficial Femoral Artery: No significant abnormality. - Profunda Femoral Artery: No significant abnormality. - Popliteal Artery: No significant abnormality. - Anterior Tibial Artery: No significant abnormality. - Tibioperoneal Trunk: No significant abnormality. - Posterior Tibial Artery: No significant abnormality. - Peroneal Artery: No significant abnormality. - Ankle runoff: Three vessel. NONTARGET STRUCTURES: ABDOMEN:No significant abnormality. PELVIS:Small amount of free fluid in the pelvis. Moderate body wall edema. LOWER EXTREMITIES:Moderate soft tissue edema throughout both lower cavities. SKELETAL: No significant abnormality. ADDITIONAL FINDINGS: Heart is moderately enlarged. IMPRESSION: 1. No significant stenosis or occlusion of the abdominal aorta or either lower extremity arteries. 2. Small amount of free fluid in the pelvis with moderate body wall and lower extremity soft tissue e noe which can be seen in anasarca or other fluid imbalance. Signer Name: Alondra Arriaga MD Signed: 01/02/2021 1:31 AM Workstation Name: [id number]
[2021-01-02 05:17] VITALS: BP 147/82
== END 2021-01-02 04:19 | disposition home or self-care (01) ==
LOC: ED 16:08
DX: M79.605 Pain in left leg (principal); I10 Essential (primary) hypertension; F31.9 Bipolar disorder, unspecified; J45.909 Unspecified asthma, uncomplicated; F17.200 Nicotine dependence, unspecified, uncomplicated; Z88.1 Allergy status to other antibiotic agents
CPT/HCPCS: 36415; 71046; 75635; 80048; 85007; 85025; 87040; 99284; Q9967

== ENCOUNTER 2021-01-10 11:42 | Emergency (ER) | payer MEDICARE ==
[2021-01-10] MEDS ORDERED: ACETAMINOPHEN 500 MG TAB PO ONE (12:24)
--- NOTE | 2021-01-10 12:24 | Emergency Department Report ---
ED Shortness of Breath HPI - General Chief Complaint: Dyspnea/Respdistress Stated Complaint: fluid in back legs and chest Time Seen by Provider: 01/10/21 12:10 Source: patient Mode of arrival: Wheelchair Limitations: No Limitations - History of Present Illness Initial Comments: Patient presents secondary to shortness of breath and swelling all over. This been going on for the last several days. She describes some orthopnea and states that she just cannot sleep because she is short of breath. She has noticed swelling in the ankles and feet. She has noticed swelling in the face and arms. She is noted swelling in the abdomen. Patient is on a water pill. She states that she has been taking it but it does not seem to be working. There is no history of recent travel or trauma. She does state that she avoid salt and really does not eat salt. Patient denies cough or congestion. There has been no recent travel or trauma. She has no history of immobility. - Related Data Previous Rx's Medication Instructions Recorded Last Taken Type AtorvaSTATin [Lipitor] 40 mg PO QHS #30 tab 04/16/20 Unknown Rx Pantoprazole [Protonix TAB] 40 mg PO QDAC #30 tablet 04/16/20 Unknown Rx Clopidogrel [Plavix] 75 mg PO QDAY #30 tablet 10/08/20 Unknown Rx Folic Acid [Folvite] 1 mg PO QDAY #30 tablet 10/08/20 Unknown Rx Metoprolol [Lopressor TAB] 50 mg PO BID #60 tablet 10/08/20 Unknown Rx Spironolactone [Aldactone] 25 mg PO QDAY #30 tablet 10/08/20 Unknown Rx lisinopriL [Zestril TAB] 5 mg PO QDAY #30 tablet 10/08/20 Unknown Rx risperiDONE [RisperDAL] 0.25 mg PO BID #30 tablet 10/08/20 Unknown Rx traZODone [Desyrel] 50 mg PO QHS #14 tablet 10/08/20 Unknown Rx Docusate Sodium [Colace] 100 mg PO BID #60 capsule 11/06/20 Unknown Rx Ferrous Sulfate [Feosol 325 MG tab] 325 mg PO BID #60 tablet 11/06/20 Unknown Rx ISOSORBIDE MONOnitrate [Imdur ER] 30 mg PO QDAY #30 tablet 11/06/20 Unknown Rx ALBUTEROL NEB's [Proventil 0.083% 2.5 mg IH TID PRN #1 box 12/10/20 Unknown Rx NEBS] Albuterol Mdi (or & Nicu Only) 2 puff IH QID PRN #8.5 gram 12/10/20 Unknown Rx [ProAir HFA Inhaler] Apixaban [Eliquis] 5 mg PO BID #60 tablet 12/10/20 Unknown Rx Doxycycline Hyclate 100 mg PO BID 10 Days #20 capsule 12/28/20 Unknown Rx HYDROcodone/APAP 5-325 [[place] 1 each PO Q4HR PRN #10 tablet 12/28/20 Unknown Rx 5/325] Azithromycin [Zithromax TAB] 250 mg PO QDAY #4 tablet 12/29/20 Unknown Rx predniSONE [Deltasone] 50 mg PO QDAY #5 tab 12/29/20 Unknown Rx HYDROcodone/APAP 5-325 [[place] 1 - 2 each PO Q6HR PRN #14 tablet 01/02/21 Unknown Rx 5/325] Allergies Allergy/AdvReac Type Severity Reaction Status Date / Time aspirin Allergy Swelling Verified 12/29/20 14:04 ED Review of Systems ROS: Stated complaint: fluid in back legs and chest Other details as noted in HPI Comment: All other systems reviewed and negative Constitutional: denies: fever Eyes: denies: vision change ENT: denies: throat pain Respiratory: denies: cough Cardiovascular: as per HPI. denies: chest pain Endocrine: denies: unexplained weight loss Gastrointestinal: denies: abdominal pain Genitourinary: denies: dysuria Musculoskeletal: denies: back pain Skin: denies: rash Neurological: denies: headache Hematological/Lymphatic: denies: easy bruising ED Past Medical Hx - Past Medical History Previous Medical History?: Yes Hx Hypertension: Yes Hx Congestive Heart Failure: No Hx Diabetes: No Hx Psychiatric Treatment: Yes (bipolar) Hx Asthma: Yes Hx COPD: No Additional medical history: bronchitis - Surgical History Past Surgical History?: Yes Additional Surgical History: . heart cath x3. lower spinal sx - Family History Family history: hypertension - Social History Smoking Status: Current Every Day Smoker (2 cigarettes a day) Substance Use Type: None (Denies illicit drug use), Alcohol (Occasional) - Medications Home Medications: Home Medications Medication Instructions Recorded Confirmed Last Taken Type AtorvaSTATin [Lipitor] 40 mg PO QHS #30 tab 04/16/20 10/30/20 Unknown Rx Pantoprazole [Protonix TAB] 40 mg PO QDAC #30 tablet 04/16/20 10/30/20 Unknown Rx Clopidogrel [Plavix] 75 mg PO QDAY #30 tablet 10/08/20 10/30/20 Unknown Rx Folic Acid [Folvite] 1 mg PO QDAY #30 tablet 10/08/20 10/30/20 Unknown Rx Metoprolol [Lopressor TAB] 50 mg PO BID #60 tablet 10/08/20 10/30/20 Unknown Rx Spironolactone [Aldactone] 25 mg PO QDAY #30 tablet 10/08/20 10/30/20 Unknown Rx lisinopriL [Zestril TAB] 5 mg PO QDAY #30 tablet 10/08/20 10/30/20 Unknown Rx risperiDONE [RisperDAL] 0.25 mg PO BID #30 tablet 10/08/20 10/30/20 Unknown Rx traZODone [Desyrel] 50 mg PO QHS #14 tablet 10/08/20 10/30/20 Unknown Rx Docusate Sodium [Colace] 100 mg PO BID #60 capsule 11/06/20 Unknown Rx Ferrous Sulfate [Feosol 325 MG tab] 325 mg PO BID #60 tablet 11/06/20 Unknown Rx ISOSORBIDE MONOnitrate [Imdur ER] 30 mg PO QDAY #30 tablet 11/06/20 Unknown Rx ALBUTEROL NEB's [Proventil 0.083% 2.5 mg IH TID PRN #1 box 12/10/20 Unknown Rx NEBS] Albuterol Mdi (or & Nicu Only) 2 puff IH QID PRN #8.5 gram 12/10/20 Unknown Rx [ProAir HFA Inhaler] Apixaban [Eliquis] 5 mg PO BID #60 tablet 12/10/20 Unknown Rx Doxycycline Hyclate 100 mg PO BID 10 Days #20 capsule 12/28/20 Unknown Rx HYDROcodone/APAP 5-325 [[place] 1 each PO Q4HR PRN #10 tablet 12/28/20 Unknown Rx 5/325] Azithromycin [Zithromax TAB] 250 mg PO QDAY #4 tablet 12/29/20 Unknown Rx predniSONE [Deltasone] 50 mg PO QDAY #5 tab 12/29/20 Unknown Rx HYDROcodone/APAP 5-325 [[place] 1 - 2 each PO Q6HR PRN #14 tablet 01/02/21 Unknown Rx 5/325] ED Physical Exam - General Limitations: No Limitations, Other ( Pulse ox noted and normal) General appearance: alert, in distress ( mild) - Head Head exam: Present: atraumatic, normocephalic, normal inspection - Eye Eye exam: Present: normal appearance, EOMI. Absent: scleral icterus - ENT ENT exam: Present: normal exam, mucous membranes moist - Neck Neck exam: Present: normal inspection. Absent: meningismus - Respiratory Respiratory exam: Present: respiratory distress ( mild), rales ( bilateral), rhonchi (bilateral) - Cardiovascular Cardiovascular Exam: Present: regular rate, normal rhythm, systolic murmur ( 3/6) - GI/Abdominal GI/Abdominal exam: Present: soft. Absent: tenderness - Extremities Exam Extremities exam: Present: normal capillary refill, pedal edema ( 2+ in bilateral) - Back Exam Back exam: Absent: CVA tenderness (R), CVA tenderness (L) - Neurological Exam Neurological exam: Present: alert, oriented X3, CN II-XII intact, reflexes normal. Absent: motor sensory deficit - Psychiatric Psychiatric exam: Present: normal affect, normal mood - Skin Skin exam: Present: warm, dry ED Course Vital Signs 01/10/21 01/10/21 11:56 12:46 Temperature 98.6 F Pulse Rate 99 H Respiratory 18 18 Rate Blood Pressure 133/106 [Right] O2 Sat by Pulse 100 Oximetry - Reevaluation(s) Reevaluation #1: 01/10/21 12:23 IV and labs ordered. X-ray was ordered. Old records reviewed. Reevaluation #2: 01/10/21 14:02 Labs have been noted. Lasix has been ordered. ED Medical Decision Making - Lab Data Result diagrams: 01/10/21 12:49 01/10/21 12:49 rhythm strip: Normal sinus rhythm without ectopy per monitor observe 10 seconds. - Radiology Data Radiology results: report reviewed - Medical Decision Making Patient presents with difficulty breathing. She was found to have pulmonary edema. She does have a diuretic at home which she has not been taking. At this time, I have had a long discussion with her about continuing her home medication. She will be given diuretics here. She does not appear to be hypoxic. There is no evidence of STEMI or NSTEMI based on her current presentation. She does not have any evidence of respiratory distress. She will be diuresed and treated at home. She was referred to her primary care physician and her tipple oiler, Dr. Palomo, for recheck. Patient does not have clinical symptoms that would suggest pneumonia. She certainly does not have respiratory failure. Critical Care Time: No Critical care attestation.: If time is entered above; I have spent that time in minutes in the direct care of this critically ill patient, excluding procedure time. ED Disposition Clinical Impression: CHF exacerbation Qualifiers: Heart failure type: combined systolic and diastolic Qualified Code(s): I50.43 - Acute on chronic combined systolic (congestive) and diastolic (congestive) heart failure Disposition: 01 HOME / SELF CARE / HOMELESS Is pt being admited?: No Condition: Stable Instructions: Heart Failure, Self Care, [id number], Preventing Heart Failure Additional Instructions: Take your regular medications including a water pill. Avoid salt. see your regular doctor and your tipple oiler for recheck. Continue your other home medication. Referrals: PRIMARY CAREMD [Primary Care Provider] - 3-5 Days YOLI SUAZO MD [Staff Physician] - 3-5 Days MAHENDRA SY MD [Staff Physician] - 3-5 Days
--- NOTE | 2021-01-10 12:58 | XRay Report ---
XR chest routine 2V INDICATION / CLINICAL INFORMATION: dyspnea. COMPARISON: None available. FINDINGS: SUPPORT DEVICES: None. HEART /PULMONARY VASCULATURE: There is cardiomegaly. Pulmonary vasculature is borderline congested. LUNGS / PLEURA: Trace right pleural effusion. No focal airspace consolidation. No pneumothorax. ADDITIONAL FINDINGS: No significant additional findings. IMPRESSION: Cardiomegaly with prominence of the pulmonary vasculature, suggestive of CHF. Trace right pleural eff usion is present. Signer Name: Scar Perez MD Signed: 01/10/2021 12:54 PM Workstation Name: [id number]
[2021-01-10 13:23] LABS: Basophils # (Auto) 0.1 K/mm3 (0.0-0.1); Basophils % (Auto) 1.2 % (0.0-1.8); Eosinophils % (Auto) 0.5 % (0.0-4.3); Lymphocytes # (Auto) 1.2 K/mm3 (1.2-5.4); Lymphocytes % (Auto) 16.7 % (13.4-35.0); Mean Corpuscular HGB Conc 29 % (30-34); Mean Corpuscular Volume 81 fl (79-97); Monocytes # (Auto) 0.7 K/mm3 (0.0-0.8); Monocytes % (Auto) 9.1 % (0.0-7.3); Platelet Count 236 K/mm3 (140-440); Red Blood Count 5.03 M/mm3 (3.65-5.03)
[2021-01-10 13:43] LABS: Hematocrit 40.5 % (30.3-42.9); Hemoglobin 11.7 gm/dl (10.1-14.3); Red Cell Distribution Width 24.4 % (13.2-15.2)
[2021-01-10 13:50] LABS: Blood Urea Nitrogen 13 mg/dL (7-17); Calcium 8.5 mg/dL (8.4-10.2); Hemolysis Index 8
[2021-01-10 13:51] LABS: BUN/Creatinine Ratio 19
[2021-01-10] MEDS ORDERED: FUROSEMIDE 40 MG/4 ML INJ IV ONE (13:54)
[2021-01-10 14:40] VITALS: BP 132/93
--- NOTE | 2021-01-12 11:34 | Electrocardiograph Report ---
[facility] Test Date: 2021-01-10 Test Time: 14:37:13 Pat Name: EFLIPA STOUT Department: Room: Gender: F Applications Coordinator: ASHA : [id number] Requested By: SEAN GIORDANO Order Number: [id number] Reading MD: Hayley Palomo Measurements Intervals [place] Rate: 104 P: 57 FL: 127 QRS: -36 QRSD: 82 T: 1 QT: 352 QTc: 459 Interpretive Statements Sinus tachycardia Multiform ventricular premature complexes Inferior infarct, old Compared to ECG 12/10/2020 12:27:06 Sinus rate has increased Electronically Signed On 01-12-2021 11:34:20 EST by Hayley Palomo
== END 2021-01-10 14:51 | disposition home or self-care (01) ==
LOC: ED 11:42
DX: I50.43 Acute on chronic combined systolic (congestive) and diastolic (congestive) heart failure (principal); Z88.6 Allergy status to analgesic agent; I10 Essential (primary) hypertension; F31.9 Bipolar disorder, unspecified; J45.909 Unspecified asthma, uncomplicated; F17.200 Nicotine dependence, unspecified, uncomplicated; F10.20 Alcohol dependence, uncomplicated
CPT/HCPCS: 36415; 71046; 80048; 83880; 84484; 85025; 93005; 96374; 99284; J1940

== ENCOUNTER 2021-01-10 15:53 | Observation (INO) | payer MEDICARE ==
--- NOTE | 2021-01-10 17:45 | Emergency Department Report ---
Blank Doc - Documentation Documentation: This is an interim note. I had seen this patient earlier today and discharged her. She felt, as she was being discharged in the waiting room that she could not go home. She cannot walk to the bathroom without getting dyspneic and short of breath. I have had this conversation with her prior to discharge. Ultimately, she decided to check back into the emergency department and reregister. Patient does have exertional dyspnea. She is not hypoxic at rest. She still has rales on exam. She is diuresing after getting IV Lasix. She states that she feels she just cannot go home because she is so dyspneic. On exam, patient still has rails. She does have exertional dyspnea with labored respirations. Heart is regular. Case was discussed with the hospitalist who agrees to admit at this point. Observation status would be appropriate.
--- NOTE | 2021-01-10 19:32 | History and Physical Report ---
History of Present Illness Date of examination: 01/10/21 Date of admission: 01/10/21 17:45 Chief complaint: Shortness of breath for 4 days History of present illness: 50-year-old female with poor historian with history of hypertension, coronary artery disease: GERD, hyperlipidemia, anemia and COPD comes into increasing shortness of breath for the last 4 days. Shortness of breath on minimal exertion and orthopnea present. Patient was evaluated in the morning in the emergency room and was given prescription and sent home. Patient comes back again for the same complaints saying that she is very short of breath and orthopneic. No chest pain. Because of the repeat admission to the emergency room patient being admitted for CHF exacerbation. Patient is very noncompliant. Patient is on multiple medications. No chest pain. Class IV NYHA symptoms present. - Past Medical History --Previous Medical History?: Yes --Hypertension: Yes --Psychiatric Treatment: Yes (bipolar) --Asthma: Yes --Additional medical history: bronchitis - Surgical History --Past Surgical History?: Yes --Additional Surgical History: . heart cath x3. lower spinal sx - Family History --Family history: hypertension - Social History --Smoking Status: Current Every Day Smoker (2 cigarettes a day) --Substance Use Type: None (Denies illicit drug use), Alcohol (Occasional) Review of Systems ROS: Stated complaint: fluid in back legs and chest Other details as noted in HPI Comment: All other systems reviewed and negative Constitutional: denies: fever Eyes: denies: vision change ENT: denies: throat pain Respiratory: denies: cough Cardiovascular: as per HPI. denies: chest pain Endocrine: denies: unexplained weight loss Gastrointestinal: denies: abdominal pain Genitourinary: denies: dysuria Musculoskeletal: denies: back pain Skin: denies: rash Neurological: denies: headache Hematological/Lymphatic: denies: easy bruising Medications and Allergies Allergies Allergy/AdvReac Type Severity Reaction Status Date / Time aspirin Allergy Swelling Verified 12/29/20 14:04 Home Medications Medication Instructions Recorded Confirmed Last Taken Type AtorvaSTATin [Lipitor] 40 mg PO QHS #30 tab 04/16/20 10/30/20 Unknown Rx Pantoprazole [Protonix TAB] 40 mg PO QDAC #30 tablet 04/16/20 10/30/20 Unknown Rx Clopidogrel [Plavix] 75 mg PO QDAY #30 tablet 10/08/20 10/30/20 Unknown Rx Folic Acid [Folvite] 1 mg PO QDAY #30 tablet 10/08/20 10/30/20 Unknown Rx Metoprolol [Lopressor TAB] 50 mg PO BID #60 tablet 10/08/20 10/30/20 Unknown Rx Spironolactone [Aldactone] 25 mg PO QDAY #30 tablet 10/08/20 10/30/20 Unknown Rx lisinopriL [Zestril TAB] 5 mg PO QDAY #30 tablet 10/08/20 10/30/20 Unknown Rx risperiDONE [RisperDAL] 0.25 mg PO BID #30 tablet 10/08/20 10/30/20 Unknown Rx traZODone [Desyrel] 50 mg PO QHS #14 tablet 10/08/20 10/30/20 Unknown Rx Docusate Sodium [Colace] 100 mg PO BID #60 capsule 11/06/20 Unknown Rx Ferrous Sulfate [Feosol 325 MG tab] 325 mg PO BID #60 tablet 11/06/20 Unknown Rx ISOSORBIDE MONOnitrate [Imdur ER] 30 mg PO QDAY #30 tablet 11/06/20 Unknown Rx ALBUTEROL NEB's [Proventil 0.083% 2.5 mg IH TID PRN #1 box 12/10/20 Unknown Rx NEBS] Albuterol Mdi (or & Nicu Only) 2 puff IH QID PRN #8.5 gram 12/10/20 Unknown Rx [ProAir HFA Inhaler] Apixaban [Eliquis] 5 mg PO BID #60 tablet 12/10/20 Unknown Rx Doxycycline Hyclate 100 mg PO BID 10 Days #20 capsule 12/28/20 Unknown Rx HYDROcodone/APAP 5-325 [[place] 1 each PO Q4HR PRN #10 tablet 12/28/20 Unknown Rx 5/325] Azithromycin [Zithromax TAB] 250 mg PO QDAY #4 tablet 12/29/20 Unknown Rx predniSONE [Deltasone] 50 mg PO QDAY #5 tab 12/29/20 Unknown Rx HYDROcodone/APAP 5-325 [[place] 1 - 2 each PO Q6HR PRN #14 tablet 01/02/21 Unknown Rx 5/325] Exam - Physical Exam Narrative exam: Patient lying in bed and mild distress because of shortness of breath - Constitutional Vitals: Temp Pulse Resp BP Pulse Ox 97.8 F 109 H 22 117/88 99 01/10/21 17:27 01/10/21 18:30 01/10/21 18:30 01/10/21 18:30 01/10/21 18:41 General appearance: Present: mild distress, well-nourished - EENT Eyes: Present: PERRL ENT: hearing intact, clear oral mucosa - Neck Neck: Present: supple, normal ROM - Respiratory Respiratory effort: normal Respiratory: bilateral: CTA - Cardiovascular Heart rate: 98 Rhythm: regular Heart Sounds: Present: S1 & S2. Absent: rub, click - Extremities Extremities: pulses symmetrical, No edema Extremity abnormal: edema (2 plus pedal edema) Peripheral Pulses: within normal limits - Abdominal General gastrointestinal: Present: soft, non-tender, non-distended, normal bowel sounds Female genitourinary: Present: normal - Rectal Rectal Exam: deferred - Integumentary Integumentary: Present: clear, warm, dry - Musculoskeletal Musculoskeletal: generalized weakness - Psychiatric Psychiatric: appropriate mood/affect, intact judgment & insight - Neurologic Neurologic: CNII-XII intact, moves all extremities - Allied Health Allied health notes reviewed: nursing, case management HEART Score - HEART Score History: Highly suspicious Age: 45-65 Risk factors: > 3 risk factors or hx of atherosclerotic disease Troponin: Troponin T 0.016 ng/mL (0.00-0.029) 01/10/21 17:54 - Critical Actions Critical Actions: 4-6 pts:12-16.6% risk of adverse cardiac event. Should be admitted Results - Labs Labs: Labs done front end ui developer around 12 noon-patient was discharged and readmitted to the ER--2 visits in the same day WBC 7.5, hemoglobin 11.7, hematocrit 40.5, platelet count 236,000 MCH 23 low, MCHC 29 low, RDW 24.4 high Chemistry: Sodium-147H Potassium 4.1 Chloride 108.6 Carbon dioxide 25 Anion gap 18 BUN 13 Creatinine 0.7 Estimated GFR more than 60 Glucose 115 Calcium 8.5 Troponin 0.012 BNP 3949 Troponin T 0.016 ng/mL (0.00-0.029) 01/10/21 17:54 Cardiac Enzymes 11/14/21 Range/Units 17:54 Troponin T 0.016 (0.00-0.029) ng/mL Cardiac Enzymes 01/10/21 Range/Units 17:54 Troponin T 0.016 (0.00-0.029) ng/mL Laboratory Results - last 72 hr 01/10/21 17:54 Troponin T 0.016 - Imaging and Cardiology EKG: report reviewed Chest x-ray: report reviewed Imaging and Cardiology: Echocardiogram Date of service 04/13/2020 (Left ventricular chamber size is mildly dilated Estimated ejection fraction is 40 to 45% Aortic valve is slightly leaflet Cardiac cath done on 04/15/2020 Angiographically normal coronary arteries Dilated nonischemic cardiomyopathy Severe left ventricular systolic dysfunction with ejection fraction of 25 to 30% 01/01/2021 CT angiogram of the abdomen pelvis and lower extremities No significant stenosis or occlusion of the abdominal aorta or either lower extremity arteries Small amount of free fluid in the pelvis with moderate body wall and lower extremity soft tissue edema which can be seen in anasarca or other fluid imbalance 01/10/2021 Chest x-ray cardiomegaly with prominence of the pulmonary vasculature suggestive of CHF. Trace right pleural effusion is present Assessment and Plan Advance Directives: Yes (Full code) VTE prophylaxis?: Chemical Plan of care discussed with patient/family: Yes - Patient Problems (1) Acute exacerbation of CHF (congestive heart failure) Current Visit: Yes Status: Acute Qualifiers: Heart failure type: combined systolic and diastolic Qualified Code(s): I50.43 - Acute on chronic combined systolic (congestive) and diastolic (congestive) heart failure Plan to address problem: Patient has ejection fraction of about 25% on previous cath Cath report on the history and physical Cath done on 04/15/2020 Patient is in acute CHF by history and chest x-rays IV Lasix 40 mg every 12 KCl 20 mEq every 12 Daily weights Daily intake and output Echocardiogram done recently in March along with cardiac cath--hence cardiac echocardiogram was not requested Cardiology consult requested (2) Coronary artery disease Current Visit: Yes Status: Chronic Qualifiers: Coronary Disease-Associated Artery/Lesion type: [place] artery [place] vs. transplanted heart: [place] heart Plan to address problem: Patient on Eliquis Patient refuses Plavix Patient on iron isosorbide mononitrate (3) COPD (chronic obstructive pulmonary disease) Current Visit: Yes Status: Chronic Qualifiers: Chronic bronchitis type: unspecified Plan to address problem: Duo nebs [id number] and as needed (4) Anemia Current Visit: No Status: Chronic Qualifiers: Anemia type: iron deficiency Plan to address problem: Patient on iron supplements MCH and MCHC low (5) Hyperlipidemia Current Visit: Yes Status: Chronic Qualifiers: Hyperlipidemia type: unspecified Qualified Code(s): E78.5 - Hyperlipidemia, unspecified Plan to address problem: Continue statins (6) Hypertension Current Visit: Yes Status: Chronic Qualifiers: Hypertension type: primary hypertension Qualified Code(s): I10 - Essential (primary) hypertension Plan to address problem: Continue antihypertensives and adjust medications (7) GERD (gastroesophageal reflux disease) Current Visit: Yes Status: Chronic Qualifiers: Esophagitis presence: without esophagitis Qualified Code(s): K21.9 - Gastro-esophageal reflux disease without esophagitis Plan to address problem: Continue PPIs (8) DVT prophylaxis Current Visit: Yes Status: Acute Plan to address problem: On Eliquis and GI prophylaxis
[2021-01-10] MEDS ORDERED: ALBUTEROL 2.5 MG/3 ML NEBU IH PRN ×2 (19:55→23:43)
[2021-01-10] MEDS ORDERED: ONDANSETRON 4 MG/2 ML INJ IV PRN (20:00)
[2021-01-10] MEDS ORDERED: METOCLOPRAMIDE 10 MG/2 ML INJ IV PRN (20:00)
[2021-01-10] MEDS ORDERED: HYDROmorphone 1 MG/1 ML INJ IV PRN (20:00)
[2021-01-10] MEDS ORDERED: ACETAMINOPHEN 325 MG TAB PO PRN (20:00)
[2021-01-10] MEDS: FERROUS SULFATE 325 MG TAB PO SCH (21:52)
[2021-01-10] MEDS: oxyCODONE /ACETAMINOPHEN 5-325MG TAB PO PRN (21:52)
[2021-01-10] MEDS: APIXABAN 5 MG TAB PO SCH (21:52)
[2021-01-10] MEDS: DOCUSATE SODIUM 100 MG CAP PO SCH (21:52)
[2021-01-10] MEDS: risperiDONE 0.25 MG TAB PO SCH (21:53)
[2021-01-10] MEDS: traZODone 50 MG TAB PO SCH (21:53)
[2021-01-10] MEDS: LISINOPRIL 5 MG TAB PO SCH (21:55)
[2021-01-10] MEDS: METOPROLOL TARTRATE 50 MG TAB PO SCH (21:55)
[2021-01-10] MEDS ORDERED: FAMOTIDINE 20 MG TAB PO SCH (22:00)
[2021-01-10] MEDS ORDERED: NON-FORMULARY EACH (Apixaban 5 MG Tablet) PO SCH (22:00)
[2021-01-10] MEDS ORDERED: predniSONE 50 MG TAB PO SCH (22:00)
[2021-01-10] MEDS: SPIRONOLACTONE 25 MG TAB PO SCH (22:52)
[2021-01-10] MEDS ORDERED: ALBUTEROL 8.5 GM MDI INHALATION IH PRN (23:43)
[2021-01-11] MEDS ORDERED: methylPREDNISolone Sod Succinate 40 MG/1 ML INJ IV SCH
[2021-01-11] MEDS ORDERED: FUROSEMIDE 40 MG/4 ML INJ IV ONE (00:15)
[2021-01-11] MEDS: oxyCODONE /ACETAMINOPHEN 5-325MG TAB PO PRN ×3 (05:46→17:12)
[2021-01-11] MEDS: FUROSEMIDE 40 MG/4 ML INJ IV SCH ×2 (05:47→17:13)
[2021-01-11 06:17] LABS: Mean Corpuscular HGB Conc 30 % (30-34); Mean Corpuscular Volume 79 fl (79-97); Platelet Count 219 K/mm3 (140-440)
[2021-01-11 06:20] LABS: Hematocrit 37.1 % (30.3-42.9); Hemoglobin 11.3 gm/dl (10.1-14.3); Red Cell Distribution Width 23.7 % (13.2-15.2)
[2021-01-11 06:43] LABS: Alanine Aminotransferase 70 units/L (7-56); Albumin 2.8 g/dL (3.9-5); Blood Urea Nitrogen 11 mg/dL (7-17); Calcium 8.1 mg/dL (8.4-10.2); Hemolysis Index 1
[2021-01-11 06:46] LABS: BUN/Creatinine Ratio 16
[2021-01-11] MEDS: DOCUSATE SODIUM 100 MG CAP PO SCH ×2 (09:58→21:44)
[2021-01-11] MEDS: FOLIC ACID 1 MG TAB PO SCH (09:59)
[2021-01-11] MEDS: METOPROLOL TARTRATE 50 MG TAB PO SCH ×2 (09:59→22:00)
[2021-01-11] MEDS: risperiDONE 0.25 MG TAB PO SCH ×2 (09:59→21:44)
[2021-01-11] MEDS: SPIRONOLACTONE 25 MG TAB PO SCH (09:59)
[2021-01-11] MEDS: APIXABAN 5 MG TAB PO SCH ×2 (09:59→21:44)
[2021-01-11] MEDS: FERROUS SULFATE 325 MG TAB PO SCH ×2 (09:59→21:44)
[2021-01-11] MEDS: LISINOPRIL 5 MG TAB PO SCH (09:59)
[2021-01-11] MEDS: PANTOPRAZOLE 40 MG TAB PO SCH (10:04)
[2021-01-11 11:28] LABS: Eosinophils % (Auto) 0.1 % (0.0-4.3); Monocytes # (Auto) 0.1 K/mm3 (0.0-0.8); Monocytes % (Auto) 1.9 % (0.0-7.3)
[2021-01-11 11:50] LABS: Total Cells Counted 100
[2021-01-11 11:51] LABS: Anisocytosis 2+; Hypochromasia 1+; Large Platelets Few; Platelet Estimate Cons
--- NOTE | 2021-01-11 15:45 | Progress Note ---
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 Patient reports being unable to breathe due to pneumonia for which she was treated for at outside hospital. She reports finishing antibiotics over a week ago. Shortness of breath and orthopnea has improved after diuretics. No complaints at this time. Hospitalist Physical - Physical exam Narrative exam: GENERAL: Well-developed well-nourished. Sitting on the side of the bed in no acute distress. HEENT: Normocephalic. Atraumatic. CHEST/LUNGS: Bibasilar crackles bilaterally. HEART/CARDIOVASCULAR: RRR. No murmur, rubs or gallops appreciated. ABDOMEN: +BS. NT/ND. Dependent edema. SKIN: No rashes noted. NEURO: No focal motor deficit. Follows all commands and is ambulatory. EXTREMITIES: 1+ edema at thigh. PSYCH: Cooperative. - Constitutional Vitals: Temp Pulse Resp BP Pulse Ox 97.8 F 84 20 101/76 100 01/11/21 08:40 01/11/21 11:44 01/11/21 11:44 01/11/21 11:44 01/11/21 11:44 General appearance: Present: mild distress, well-nourished HEART Score - HEART Score Age: 45-65 Risk factors: > 3 risk factors or hx of atherosclerotic disease Troponin: Troponin T < 0.010 ng/mL (0.00-0.029) 01/11/21 05:34 - Critical Actions Critical Actions: 4-6 pts:12-16.6% risk of adverse cardiac event. Should be admitted Results - Labs CBC & Chem 7: 01/11/21 05:34 01/11/21 05:34 Labs: Laboratory Last Values WBC 6.6 K/mm3 (4.5-11.0) 01/11/21 05:34 RBC 4.70 M/mm3 (3.65-5.03) 01/11/21 05:34 Hgb 11.3 gm/dl (10.1-14.3) 01/11/21 05:34 Hct 37.1 % (30.3-42.9) 01/11/21 05:34 MCV 79 fl (79-97) 01/11/21 05:34 MCH 24 pg (28-32) L 01/11/21 05:34 MCHC 30 % (30-34) 01/11/21 05:34 RDW 23.7 % (13.2-15.2) H 01/11/21 05:34 Plt Count 219 K/mm3 (140-440) 01/11/21 05:34 [place] % (Auto) 1.9 % (0.0-7.3) 01/11/21 05:34 Eos % (Auto) 0.1 % (0.0-4.3) 01/11/21 05:34 [place] # (Auto) 0.1 K/mm3 (0.0-0.8) 01/11/21 05:34 Eos # (Auto) 0.0 K/mm3 (0.0-0.4) 01/11/21 05:34 Baso # (Auto) 0.0 K/mm3 (0.0-0.1) 01/11/21 05:34 Add Manual Diff Complete 01/11/21 05:34 Total Counted 100 01/11/21 05:34 Seg Neutrophils % Towel Inspector 01/11/21 05:34 Seg Neuts % (Manual) 93.0 % (40.0-70.0) H 01/11/21 05:34 Lymphocytes % (Manual) 6.0 % (13.4-35.0) L 01/11/21 05:34 Monocytes % (Manual) 1.0 % (0.0-7.3) 01/11/21 05:34 Nucleated RBC % Not Reportable 01/11/21 05:34 Seg Neutrophils # 6.1 K/mm3 (1.8-7.7) 01/11/21 05:34 Seg Neutrophils # Man 6.1 K/mm3 (1.8-7.7) 01/11/21 05:34 Band Neutrophils # 0.0 K/mm3 01/11/21 05:34 Lymphocytes # (Manual) 0.4 K/mm3 (1.2-5.4) L 01/11/21 05:34 Abs React Lymphs (Man) 0.0 K/mm3 01/11/21 05:34 Monocytes # (Manual) 0.1 K/mm3 (0.0-0.8) 01/11/21 05:34 Eosinophils # (Manual) 0.0 K/mm3 (0.0-0.4) 01/11/21 05:34 Basophils # (Manual) 0.0 K/mm3 (0.0-0.1) 01/11/21 05:34 Metamyelocytes # 0.0 K/mm3 01/11/21 05:34 Myelocytes # 0.0 K/mm3 01/11/21 05:34 Promyelocytes # 0.0 K/mm3 01/11/21 05:34 Blast Cells # 0.0 K/mm3 01/11/21 05:34 WBC Morphology Not Reportable 01/11/21 05:34 Hypersegmented Neuts Not Reportable 01/11/21 05:34 Hyposegmented Neuts Not Reportable 01/11/21 05:34 Hypogranular Neuts Not Reportable 01/11/21 05:34 Smudge Cells Not Reportable 01/11/21 05:34 Toxic Granulation Not Reportable 01/11/21 05:34 Toxic Vacuolation Not Reportable 01/11/21 05:34 Dohle Bodies Not Reportable 01/11/21 05:34 Pelger-Huet Anomaly Not Reportable 01/11/21 05:34 Luz Maria Rods Not Reportable 01/11/21 05:34 Platelet Estimate Cons 01/11/21 05:34 Clumped Platelets Not Reportable 01/11/21 05:34 Plt Clumps, EDTA Not Reportable 01/11/21 05:34 Large Platelets Few 01/11/21 05:34 Giant Platelets Not Reportable 01/11/21 05:34 Platelet Satelliting Not Reportable 01/11/21 05:34 Plt Morphology Comment Not Reportable 01/11/21 05:34 RBC Morphology Not Reportable 01/11/21 05:34 Dimorphic RBCs Not Reportable 01/11/21 05:34 Polychromasia Not Reportable 01/11/21 05:34 Hypochromasia 1+ 01/11/21 05:34 Poikilocytosis Not Reportable 01/11/21 05:34 Anisocytosis 2+ 01/11/21 05:34 Microcytosis 1+ 01/11/21 05:34 Macrocytosis Not Reportable 01/11/21 05:34 Spherocytes Not Reportable 01/11/21 05:34 Pappenheimer Bodies Not Reportable 01/11/21 05:34 Sickle Cells Not Reportable 01/11/21 05:34 Target Cells Not Reportable 01/11/21 05:34 Tear Drop Cells Not Reportable 01/11/21 05:34 Ovalocytes Not Reportable 01/11/21 05:34 Helmet Cells Not Reportable 01/11/21 05:34 [place] Bodies Not Reportable 01/11/21 05:34 [place] Rings Not Reportable 01/11/21 05:34 [place] Cells Not Reportable 01/11/21 05:34 Bite Cells Not Reportable 01/11/21 05:34 Crenated Cell Not Reportable 01/11/21 05:34 Elliptocytes Not Reportable 01/11/21 05:34 Acanthocytes (Spur) Not Reportable 01/11/21 05:34 Rouleaux Not Reportable 01/11/21 05:34 Hemoglobin C Crystals Not Reportable 01/11/21 05:34 Schistocytes Not Reportable 01/11/21 05:34 Malaria parasites Not Reportable 01/11/21 05:34 Mamadou Bodies Not Reportable 01/11/21 05:34 Hem Pathologist Commnt No 01/11/21 05:34 Sodium 143 mmol/L (137-145) 01/11/21 05:34 Potassium 3.8 mmol/L (3.6-5.0) 01/11/21 05:34 Chloride 104.1 mmol/L (98-107) 01/11/21 05:34 Carbon Dioxide 26 mmol/L (22-30) 01/11/21 05:34 Anion Gap 17 mmol/L 01/11/21 05:34 BUN 11 mg/dL (7-17) 01/11/21 05:34 Creatinine 0.7 mg/dL (0.6-1.2) 01/11/21 05:34 Estimated GFR > 60 ml/min 01/11/21 05:34 BUN/Creatinine Ratio 16 % 01/11/21 05:34 Glucose 132 mg/dL (65-100) H 01/11/21 05:34 Calcium 8.1 mg/dL (8.4-10.2) L 01/11/21 05:34 Total Bilirubin 0.60 mg/dL (0.1-1.2) 01/11/21 05:34 AST 33 units/L (5-40) 01/11/21 05:34 ALT 70 units/L (7-56) H 01/11/21 05:34 Alkaline Phosphatase 165 units/L (35-129) H 01/11/21 05:34 Troponin T < 0.010 ng/mL (0.00-0.029) 01/11/21 05:34 NT-Pro-B Natriuret Pep 3485 pg/mL (0-900) H 01/11/21 05:34 Total Protein 5.4 g/dL (6.3-8.2) L 01/11/21 05:34 Albumin 2.8 g/dL (3.9-5) L 01/11/21 05:34 Albumin/Globulin Ratio 1.1 % 01/11/21 05:34 Active Medications - Current Medications Current Medications: Generic Name Dose Route Start Last Admin Trade Name Freq PRN Reason Stop Dose Admin Acetaminophen 650 mg 01/10/21 20:00 Acetaminophen 325 Mg Tab PO Q4H PRN Pain MILD(1-3)/Fever >100.5/[place] Albuterol 2.5 mg 01/10/21 23:43 Albuterol 2.5 Mg/3 Ml Nebu IH Q4HRT PRN Shortness Of Breath Apixaban 5 mg 01/10/21 22:00 01/11/21 09:59 Apixaban 5 Mg Tab PO 5 mg Q12HR GANESH Administration Atorvastatin Calcium 40 mg 01/10/21 22:00 01/10/21 21:53 Atorvastatin 40 Mg Tab PO 40 mg QHS GANESH Administration Docusate Sodium 100 mg 01/10/21 22:00 01/11/21 09:58 Docusate Sodium 100 Mg Cap PO 100 mg BID GANESH Administration Ferrous Sulfate 325 mg 01/10/21 22:00 01/11/21 09:59 Ferrous Sulfate 325 Mg Tab PO 325 mg BID GANESH Administration Folic Acid 1 mg 01/11/21 10:00 01/11/21 09:59 Folic Acid 1 Mg Tab PO 1 mg QDAY GANESH Administration Furosemide 40 mg 01/11/21 06:00 01/11/21 05:47 Furosemide 40 Mg/4 Ml Inj IV 40 mg 0600,1800 GANESH Administration Hydromorphone HCl 0.5 mg 01/10/21 20:00 Hydromorphone 1 Mg/1 Ml Inj IV Q3H PRN Pain , Severe (7-10) Isosorbide Mononitrate 30 mg 01/10/21 20:00 01/11/21 09:58 Isosorbide Mononitrate Er 30 Mg Tab PO 30 mg QDAY GANESH Administration Lisinopril 5 mg 01/10/21 20:00 01/11/21 09:59 Lisinopril 5 Mg Tab PO 5 mg QDAY GANESH Administration Metoclopramide HCl 10 mg 01/10/21 20:00 Metoclopramide 10 Mg/2 Ml Inj IV Q6H PRN Nausea And Vomiting Metoprolol Tartrate 50 mg 01/10/21 22:00 01/11/21 09:59 Metoprolol Tartrate 50 Mg Tab PO 50 mg BID GANESH Administration Ondansetron HCl 4 mg 01/10/21 20:00 Ondansetron 4 Mg/2 Ml Inj IV Q8H PRN Nausea And Vomiting Oxycodone/Acetaminophen 1 tab 01/10/21 20:00 01/11/21 11:42 Oxycodone /Acetaminophen 5-325mg Tab PO 1 tab Q6H PRN Administration Pain, Moderate (4-6) Pantoprazole Sodium 40 mg 01/11/21 07:30 01/11/21 10:04 Pantoprazole 40 Mg Tab PO 40 mg QDAC GANESH Administration Risperidone 0.25 mg 01/10/21 22:00 01/11/21 09:59 Risperidone 0.25 Mg Tab PO 0.25 mg BID GANESH Administration Sodium Chloride 10 ml 01/10/21 22:00 01/10/21 22:52 Sodium Chloride 0.9% 10 Ml Flush Syringe IV 10 ml BID GANESH Administration Sodium Chloride 10 ml 01/10/21 20:00 Sodium Chloride 0.9% 10 Ml Flush Syringe IV PRN PRN LINE FLUSH Spironolactone 25 mg 01/10/21 22:00 01/11/21 09:59 Spironolactone 25 Mg Tab PO 25 mg QDAY GANESH Administration Trazodone HCl 50 mg 01/10/21 22:00 01/10/21 21:53 Trazodone 50 Mg Tab PO 50 mg QHS GANESH Administration
--- NOTE | 2021-01-11 18:19 | Consultation ---
History of Present Illness Consult date: 01/11/21 Consult reason: congestive heart failure History of present illness: Patient is a 50-year-old woman who presented to the hospital with shortness of breath, edema, clinical evidence of exacerbation of congestive heart failure. 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 On her initial presentation in March, with heart failure and markedly abnormal ECG, she underwent a cardiac catheterization that showed left ventricular ejection fraction of 25 to 30% and angiographically normal coronary arteries. She was placed on guideline directed medical therapy and discharged for outpatient follow-up. She was noncompliant and returned 6 months later in September with chest pain and anterior wall ST elevation myocardial infarction on her ECG. Cardiac catheterization at this time showed a distal thrombotic occlusion of the LAD, while a follow-up echocardiogram showed an apical left ventricular thrombus. She was recommended for warfarin therapy in addition to guideline directed medical therapy. Patient remains noncompliant and was readmitted a month later October this time with chest pain and inferior wall ST elevation on her ECG. Another cardiac catheterization showed angiographically normal coronary arteries, including the distal LAD which was widely patent. Echocardiogram showed a persistent severe nonischemic cardiomyopathy and the persistence of her left ventricular apical thrombus. The patient was discharged with a stated commitment to be, more compliant with medical therapy, including her anticoagulation, and guideline directed medical therapy and salt restricted diet. In addition to warfarin, she was placed on Plavix for antiplatelet therapy. On the current presentation, she is unable to confirm to me if she has been fully compliant, and unfortunately there was no PT/INR available that was ordered in the chart. Past History Past Medical History: heart failure, other (Myocardial infarction, left ventricular apical thrombus) Past Surgical History: PTCA Medications and Allergies Allergies Allergy/AdvReac Type Severity Reaction Status Date / Time aspirin Allergy Swelling, Verified 01/11/21 13:31 itching and hives Home Medications Medication Instructions Recorded Confirmed Last Taken Type Albuterol Mdi (or & Nicu Only) 2 puff IH QID PRN 01/11/21 01/11/21 01/10/21 History [ProAir HFA Inhaler] Apixaban [Eliquis] 5 mg PO BID 01/11/21 01/11/21 3 Days Ago History ~01/08/21 AtorvaSTATin [Lipitor] 40 mg PO QHS 01/11/21 01/11/21 Unknown History Docusate Sodium [Colace] 100 mg PO BID 01/11/21 01/11/21 Unknown History Ferrous Sulfate [Iron 325 MG] 325 mg PO BID 01/11/21 01/11/21 Unknown History Folic Acid [Folvite] 1 mg PO QDAY 01/11/21 01/11/21 Unknown History risperiDONE [RisperDAL] 0.25 mg PO BID 01/11/21 01/11/21 Unknown History traZODone [Desyrel] 50 mg PO QHS 01/11/21 01/11/21 Unknown History Active Meds: Active Medications Acetaminophen (Acetaminophen 325 Mg Tab) 650 mg PO Q4H PRN PRN Reason: Pain MILD(1-3)/Fever >100.5/[place] Albuterol (Albuterol 2.5 Mg/3 Ml Nebu) 2.5 mg IH Q4HRT PRN PRN Reason: Shortness Of Breath Apixaban (Apixaban 5 Mg Tab) 5 mg PO Q12HR [facility] Last Admin: 01/11/21 09:59 Dose: 5 mg Documented by: Atorvastatin Calcium (Atorvastatin 40 Mg Tab) 40 mg PO QHS [facility] Last Admin: 01/10/21 21:53 Dose: 40 mg Documented by: Docusate Sodium (Docusate Sodium 100 Mg Cap) 100 mg PO BID [facility] Last Admin: 01/11/21 09:58 Dose: 100 mg Documented by: Ferrous Sulfate (Ferrous Sulfate 325 Mg Tab) 325 mg PO BID [facility] Last Admin: 01/11/21 09:59 Dose: 325 mg Documented by: Folic Acid (Folic Acid 1 Mg Tab) 1 mg PO QDAY [facility] Last Admin: 01/11/21 09:59 Dose: 1 mg Documented by: Furosemide (Furosemide 40 Mg/4 Ml Inj) 40 mg IV 0600,1800 [facility] Last Admin: 01/11/21 17:13 Dose: 40 mg Documented by: Hydromorphone HCl (Hydromorphone 1 Mg/1 Ml Inj) 0.5 mg IV Q3H PRN PRN Reason: Pain , Severe (7-10) Isosorbide Mononitrate (Isosorbide Mononitrate Er 30 Mg Tab) 30 mg PO QDAY [facility] Last Admin: 01/11/21 09:58 Dose: 30 mg Documented by: Lisinopril (Lisinopril 5 Mg Tab) 5 mg PO QDAY [facility] Last Admin: 01/11/21 09:59 Dose: 5 mg Documented by: Metoclopramide HCl (Metoclopramide 10 Mg/2 Ml Inj) 10 mg IV Q6H PRN PRN Reason: Nausea And Vomiting Metoprolol Tartrate (Metoprolol Tartrate 50 Mg Tab) 50 mg PO BID [facility] Last Admin: 01/11/21 09:59 Dose: 50 mg Documented by: Ondansetron HCl (Ondansetron 4 Mg/2 Ml Inj) 4 mg IV Q8H PRN PRN Reason: Nausea And Vomiting Oxycodone/Acetaminophen (Oxycodone /Acetaminophen 5-325mg Tab) 1 tab PO Q6H PRN PRN Reason: Pain, Moderate (4-6) Last Admin: 01/11/21 17:12 Dose: 1 tab Documented by: Pantoprazole Sodium (Pantoprazole 40 Mg Tab) 40 mg PO QDAC [facility] Last Admin: 01/11/21 10:04 Dose: 40 mg Documented by: Risperidone (Risperidone 0.25 Mg Tab) 0.25 mg PO BID [facility] Last Admin: 01/11/21 09:59 Dose: 0.25 mg Documented by: Sodium Chloride (Sodium Chloride 0.9% 10 Ml Flush Syringe) 10 ml IV BID [facility] Last Admin: 01/11/21 17:14 Dose: 10 ml Documented by: Sodium Chloride (Sodium Chloride 0.9% 10 Ml Flush Syringe) 10 ml IV PRN PRN PRN Reason: LINE FLUSH Spironolactone (Spironolactone 25 Mg Tab) 25 mg PO QDAY [facility] Last Admin: 01/11/21 09:59 Dose: 25 mg Documented by: Trazodone HCl (Trazodone 50 Mg Tab) 50 mg PO QHS [facility] Last Admin: 01/10/21 21:53 Dose: 50 mg Documented by: Review of Systems Cardiovascular: orthopnea, edema, shortness of breath, no chest pain, no palpitations, no rapid/irregular heart beat, no syncope, no lightheadedness Physical Examination Vital Signs Temp Pulse Resp BP Pulse Ox 97.8 F 97 H 18 133/100 100 01/10/21 17:27 01/10/21 17:27 01/10/21 17:27 01/10/21 17:27 01/10/21 17:27 General appearance: mild distress HEENT: Positive: PERRL Neck: Positive: neck supple Cardiac: Positive: Reg Rate and Rhythm Lungs: Positive: Decreased Breath Sounds Neuro: Positive: Grossly Intact Abdomen: Positive: Soft Female genitourinary: deferred Skin: Positive: Clear Extremities: Present: edema (Trace) Results 01/11/21 05:34 01/11/21 05:34 Cardiac Enzymes 01/11/21 Range/Units 05:34 AST 33 (5-40) units/L CBC 01/11/21 Range/Units 05:34 WBC 6.6 (4.5-11.0) K/mm3 RBC 4.70 (3.65-5.03) M/mm3 Hgb 11.3 (10.1-14.3) gm/dl Hct 37.1 (30.3-42.9) % Plt Count 219 (140-440) K/mm3 [place] # (Auto) 0.1 (0.0-0.8) K/mm3 Eos # (Auto) 0.0 (0.0-0.4) K/mm3 Baso # (Auto) 0.0 (0.0-0.1) K/mm3 Comprehensive Metabolic Panel 01/11/21 Range/Units 05:34 Sodium 143 (137-145) mmol/L Potassium 3.8 (3.6-5.0) mmol/L Chloride 104.1 (98-107) mmol/L Carbon Dioxide 26 (22-30) mmol/L BUN 11 (7-17) mg/dL Creatinine 0.7 (0.6-1.2) mg/dL Glucose 132 H (65-100) mg/dL Calcium 8.1 L (8.4-10.2) mg/dL AST 33 (5-40) units/L ALT 70 H (7-56) units/L Alkaline Phosphatase 165 H (35-129) units/L Total Protein 5.4 L (6.3-8.2) g/dL Albumin 2.8 L (3.9-5) g/dL EKG interpretations - Telemetry EKG Rhythm: Sinus Rhythm Assessment and Plan - Patient Problems (1) Acute exacerbation of CHF (congestive heart failure) Current Visit: Yes Status: Acute Qualifiers: Heart failure type: combined systolic and diastolic Qualified Code(s): I50.43 - Acute on chronic combined systolic (congestive) and diastolic (congestive) heart failure Plan to address problem: Patient presents with acute exacerbation of chronic systolic heart failure. We will resume guideline directed medical therapy including aggressive intravenous diuretics. (2) Left ventricular apical thrombus Current Visit: No Status: Acute Plan to address problem: We will check the patient's baseline INR, following which we will resume oral anticoagulant therapy with warfarin. Target INR 2.0-3.0.
[2021-01-11 19:42] LABS: INR 1.07 (0.87-1.13)
[2021-01-11] MEDS: traZODone 50 MG TAB PO SCH (21:44)
[2021-01-12] MEDS: oxyCODONE /ACETAMINOPHEN 5-325MG TAB PO PRN ×2 (04:43→11:07)
[2021-01-12] MEDS: FUROSEMIDE 40 MG/4 ML INJ IV SCH (05:17)
[2021-01-12 07:42] VITALS: BP 122/80
--- NOTE | 2021-01-12 09:55 | Progress Note ---
Assessment and Plan Acute systolic heart failure Hx of anterior and inferior TN 09/30/2020 s/p POBA and manual thrombectomy of a distal thrombotic occlusion of the LAD just after the apex. 10/2020 repeat LHC showed angiographically normal coronary arteries. ASA allergy Hx of LV apical thrombus INR sub-therapeutic at 1.0 on presentation 10/2020 Re-echocardiogram showed a persistent severe nonischemic cardiomyopathy and the persistence of her left ventricular apical thrombus. Hx of NICMP 03/2020 LHC: normal coronaries, EF 25-30%. Chronic Anemia Poly-substance abuse Noncompliance with medical therapy Warfarin restarted and managed judiciously due to chronic anemia. Continue medical therapy for systolic heart failure. Subjective Date of service: 01/12/21 Interval history: Patient has no cardiac complaints. Reports her breathing is better. Denies palpitations. Objective Vital Signs Temp Pulse Resp BP BP Pulse Ox 01/12/21 09:00 99 01/12/21 07:34 98.0 F 93 H 18 122/80 95 01/12/21 05:16 69 18 108/77 97 01/12/21 05:00 81 01/11/21 21:43 91 H 18 97/74 96 01/11/21 21:34 98 H 01/11/21 21:00 18 98 01/11/21 18:00 53 L 18 137/80 99 01/11/21 17:50 56 L 19 137/80 99 01/11/21 17:40 55 L 14 137/80 100 01/11/21 17:30 56 L 23 137/80 98 01/11/21 17:20 53 L 16 137/80 98 01/11/21 17:10 51 L 15 137/80 100 01/11/21 17:00 98.5 F 63 16 129/76 97/66 98 01/11/21 16:50 52 L 17 129/76 97 01/11/21 16:40 52 L 14 129/76 96 01/11/21 16:30 59 L 13 123/63 94 01/11/21 16:20 54 L 20 123/63 95 01/11/21 16:10 70 14 123/63 88 01/11/21 16:00 54 L 13 123/63 97 01/11/21 15:50 51 L 19 123/63 95 01/11/21 15:40 53 L 20 123/63 92 11/15/21 15:30 55 L 23 123/63 96 01/11/21 15:20 56 L 18 123/63 95 01/11/21 15:10 56 L 17 123/63 97 01/11/21 15:00 59 L 20 140/71 96 01/11/21 14:50 54 L 16 140/71 96 01/11/21 14:40 53 L 22 140/71 98 01/11/21 14:30 54 L 19 140/71 97 01/11/21 14:20 54 L 11 L 140/71 98 01/11/21 14:10 55 L 11 L 140/71 97 01/11/21 14:00 57 L 15 92/63 98 01/11/21 13:50 54 L 11 L 92/63 98 01/11/21 13:40 58 L 16 92/63 100 01/11/21 13:30 64 17 92/63 99 01/11/21 13:20 80 15 92/63 99 01/11/21 13:10 86/54 99 01/11/21 13:08 86/54 96 01/11/21 11:44 84 20 101/76 100 01/11/21 10:00 87 20 95/74 100 - Physical Examination General: No Apparent Distress HEENT: Positive: PERRL Neck: Positive: neck supple Cardiac: Positive: Reg Rate and Rhythm Lungs: Positive: Decreased Breath Sounds Neuro: Positive: Grossly Intact Abdomen: Positive: Soft Extremities: Absent: edema - Labs and Meds Coagulation 01/11/21 Range/Units 18:50 PT 15.1 H (12.2-14.9) Sec. INR 1.07 (0.87-1.13) CBC 01/11/21 Range/Units 05:34 [place] # (Auto) 0.1 (0.0-0.8) K/mm3 Eos # (Auto) 0.0 (0.0-0.4) K/mm3 Baso # (Auto) 0.0 (0.0-0.1) K/mm3
[2021-01-12 10:29] LABS: INR 1.11 (0.87-1.13)
[2021-01-12 10:30] LABS: Partial Thromboplastin Time 27.2 Sec. (24.2-36.6)
[2021-01-12] MEDS: risperiDONE 0.25 MG TAB PO SCH ×2 (11:00→11:08)
[2021-01-12] MEDS: SPIRONOLACTONE 25 MG TAB PO SCH (11:07)
[2021-01-12] MEDS: PANTOPRAZOLE 40 MG TAB PO SCH (11:07)
[2021-01-12] MEDS: LISINOPRIL 5 MG TAB PO SCH (11:08)
[2021-01-12] MEDS: METOPROLOL TARTRATE 50 MG TAB PO SCH (11:08)
[2021-01-12] MEDS: FERROUS SULFATE 325 MG TAB PO SCH (11:09)
[2021-01-12] MEDS: DOCUSATE SODIUM 100 MG CAP PO SCH (11:09)
[2021-01-12] MEDS: FOLIC ACID 1 MG TAB PO SCH (11:10)
--- NOTE | 2021-01-12 14:33 | Discharge Summary ---
Providers - Providers Date of Admission: 01/10/21 17:45 Date of discharge: 01/12/21 Attending physician: REAGAN MARIE MD 01/10/21 20:00 Consult to Physician [CONS] Routine Comment: Consulting Provider: KEL ACEVEDO Physician Instructions: Reason For Exam: CHF exacerbation 01/11/21 16:56 Physical Therapy Evaluation and Treat [CONS] Routine Comment: Reason For Exam: Eval and Treat Primary care physician: [facility] Hospitalization Reason for admission: Acute on chronic systolic heart failure Condition: Stable Pertinent studies: Reviewed. Procedures: None. Hospital course: Patient is a 50-year-old female with history of hypertension, CAD status post stent to distal LAD (September 2020) and chronic systolic heart failure (EF 25- 30%), GERD, hyperlipidemia, anemia, COPD, polysubstance abuse, and medication noncompliance who presented with acute on chronic systolic heart failure exacerbation. Patient was medically managed with IV diuresis. Cardiology was consulted who recommended guideline directed medical therapy with aggressive IV diuresis. The patient was counseled at length by the primary team and cardiology about medication compliance; however, the patient denies missing medications. The patient is adamant about being compliant with attending appointments, but records show otherwise. Patient is being discharged home safely. Disposition: 01 HOME / SELF CARE / HOMELESS Final Discharge Diagnosis (Prints w/discharge instructions): Acute on chronic systolic heart failure, history of anterior and inferior [place], history of LV apical thrombus, history of nonischemic cardiomyopathy, polysubstance abuse, chronic anemia, noncompliance with medical therapy, history of COPD, hyperlipidemia, hypertension, GERD Time spent for discharge: 45 min Core Measure Documentation - Palliative Care Palliative Care/ Comfort Measures: Not Applicable - Core Measures Any of the following diagnoses?: heart failure - VTE Discharge Requirements Deep Vein Thrombosis/Pulmonary Embolism Present on Admission: No Has pt received <5 days of overlap therapy or INR<2.0: No (Not indicated) Anticoagulant overlap therapy prescribed at discharge: No Contraindication No Overlap Therapy order at DC: Not Indicated - Acute [place] Discharge Requirements Aspirin at discharge: No Reason for no aspirin on DC: Allergy or sensitivity GALI/ARB for LVSD if EF <40%: Yes Beta iain at discharge: Yes Statin for LDL = or >100 mg/dl on DC: Yes - Heart Failure Discharge Requirements GALI/ARB for LVSD if EF <40%: No Reason for no GALI/ARB: Allergy or sensitivity Beta iian at discharge: Yes - Stroke Discharge Requirements Statin for LDL = or >70 mg/dl on DC: Yes Anticoag for atrial fib/atrial flutter: Yes Antithrombotic for ischemic stroke: Yes Exam - Constitutional Vitals: Temp Pulse Resp BP Pulse Ox 98.0 F 93 H 18 122/80 99 01/12/21 07:34 01/12/21 07:34 01/12/21 07:34 01/12/21 07:34 01/12/21 09:00 General appearance: Present: no acute distress, well-nourished - EENT Eyes: Present: PERRL, EOM intact ENT: hearing intact, clear oral mucosa, dentition normal - Neck Neck: Present: supple, normal ROM - Respiratory Respiratory effort: normal Respiratory: bilateral: CTA - Cardiovascular Rhythm: regular Heart Sounds: Present: S1 & S2 - Extremities Extremities: no ischemia, pulses intact, pulses symmetrical, normal temperature, normal color Extremity abnormal: edema (Trace edema to bilateral mention) Peripheral Pulses: within normal limits - Abdominal General gastrointestinal: Present: soft, non-tender, non-distended, normal bowel sounds Female genitourinary: Present: deferred - Rectal Rectal Exam: deferred - Integumentary Integumentary: Present: clear, warm, dry - Musculoskeletal Musculoskeletal: strength equal bilaterally - Psychiatric Psychiatric: appropriate mood/affect, memory intact, agitated, other (Limited insight) - Neurologic Neurologic: CNII-XII intact, moves all extremities - Allied Health Allied health notes reviewed: nursing Plan Activity: no restrictions Diet: low salt Care Plan Goals: Patient discharging home safely. Assessment: Patient was admitted male with goal directed medical therapy. Card treatment plan. Patient was counseled at length about med; however, the patient continues to deny noncompliance. Patient safe for discharge. Follow up with: PRIMARY CARE, [Primary Care Provider] - 7 Days Forms: Warfarin Discharge Instruction Prescriptions: Warfarin [Coumadin] 5 mg PO DAILY@1700 #90 tablet Clopidogrel [Plavix] 75 mg PO QDAY #90 tablet
[2021-01-12] MEDS: CLOPIDOGREL 75 MG TAB PO SCH ×2 (15:31→15:33)
[2021-01-12] MEDS ORDERED: WARFARIN 5 MG TAB PO SCH (17:00)
== END 2021-01-12 16:30 | disposition home or self-care (01) ==
LOC: ED 15:53 → 4A 17:45
PROVIDERS: ADMIT Internal Medicine; ATTEND Student in an Organized Health Care Education/Training Program
DX: I11.0 Hypertensive heart disease with heart failure (principal); I50.43 Acute on chronic combined systolic (congestive) and diastolic (congestive) heart failure; I25.10 Atherosclerotic heart disease of native coronary artery without angina pectoris; J44.9 Chronic obstructive pulmonary disease, unspecified; K21.9 Gastro-esophageal reflux disease without esophagitis; D64.9 Anemia, unspecified; E78.5 Hyperlipidemia, unspecified; I21.9 Acute myocardial infarction, unspecified; F17.210 Nicotine dependence, cigarettes, uncomplicated; Z79.899 Other long term (current) drug therapy; Z98.890 Other specified postprocedural states; Z90.710 Acquired absence of both cervix and uterus; Z95.1 Presence of aortocoronary bypass graft
CPT/HCPCS: 36415; 80053; 83880; 84484; 85025; 85610; 85730; 96374; 96376; 97116; 97162; 99284; G0378; J1940; J7512; 85007

== ENCOUNTER 2021-07-06 15:11 | Emergency (ER) | payer MEDICARE ==
[2021-07-06 16:14] VITALS: BP 111/75
[2021-07-06] MEDS ORDERED: hydrOXYzine HCL 25 MG TAB PO ONE (22:35)
--- NOTE | 2021-07-06 22:40 | Emergency Department Report ---
ED General Adult HPI - General Chief complaint: Skin/Abscess/Foreign Body Stated complaint: TICK BITES PUI?: No Time Seen by Provider: 07/06/21 22:29 Source: patient, RN notes reviewed, old records reviewed Mode of arrival: Ambulatory Limitations: No Limitations - History of Present Illness Initial comments: During the history and physical examination, I had on complete personal protective equipment. This patient is a 51-year-old female presenting to the ER today with a complaint of numerous arthropod bites. No travel. Patient reports that she rents an apartment, and believes that she has multiple bug bites from the apartment. No additional injuries or complaints. -: days(s) Consistency: constant Improves with: none Worsens with: none Associated Symptoms: denies other symptoms, other (Pruritus) - Related Data Home Medications Medication Instructions Recorded Confirmed Last Taken ALBUTEROL NEB's [Proventil 0.083% 1 bottle IN PRN PRN 03/20/21 03/20/21 Unknown NEBS] AtorvaSTATin [Lipitor] 20 mg PO DAILY 03/20/21 03/20/21 Unknown Furosemide [Lasix TAB] 40 mg PO QDAY 03/20/21 03/20/21 Unknown Quetiapine Fumarate [SEROquel] 50 mg PO QDAY 03/20/21 03/20/21 Unknown Rivaroxaban [Xarelto] 20 mg PO QDAY 03/20/21 03/20/21 Unknown carvediloL [Coreg] 6.25 mg PO BID 03/20/21 03/20/21 Unknown risperiDONE [RisperDAL] 1 mg PO DAILY 03/20/21 03/20/21 Unknown traZODone [Desyrel] 50 mg PO HS 03/20/21 03/20/21 Unknown Previous Rx's Medication Instructions Recorded Last Taken Type Albuterol Mdi (or & Nicu Only) 2 puff IH QID PRN #1 can 03/22/21 Unknown Rx [ProAir HFA Inhaler] dexAMETHasone [Decadron] 8 mg PO DAILY #16 tablet 03/22/21 Unknown Rx Permethrin 5% [Acticin 5% CREAM] 1 applicatio TP ONCE #2 tube 07/06/21 Unknown Rx hydrOXYzine HCL [Atarax] 25 mg PO Q6HR PRN #30 tablet 07/06/21 Unknown Rx Allergies Allergy/AdvReac Type Severity Reaction Status Date / Time aspirin Allergy Swelling, Verified 01/11/21 13:31 itching and hives cefepime Allergy Shortness Verified 03/20/21 17:36 of Breath ED Review of Systems ROS: Stated complaint: TICK BITES Other details as noted in HPI Comment: All other systems reviewed and negative Skin: lesions, pruritus ED Past Medical Hx - Past Medical History Hx Hypertension: Yes Hx Heart Attack/AMI: Yes Hx Congestive Heart Failure: No Hx Diabetes: No Hx Psychiatric Treatment: Yes (bipolar) Hx Asthma: Yes Hx COPD: No Additional medical history: bronchitis, CHF - Surgical History Additional Surgical History: . heart cath x3. lower spinal sx - Social History Smoking Status: Former Smoker Substance Use Type: None - Medications Home Medications: Home Medications Medication Instructions Recorded Confirmed Last Taken Type ALBUTEROL NEB's [Proventil 0.083% 1 bottle IN PRN PRN 03/20/21 03/20/21 Unknown History NEBS] AtorvaSTATin [Lipitor] 20 mg PO DAILY 03/20/21 03/20/21 Unknown History Furosemide [Lasix TAB] 40 mg PO QDAY 03/20/21 03/20/21 Unknown History Quetiapine Fumarate [SEROquel] 50 mg PO QDAY 03/20/21 03/20/21 Unknown History Rivaroxaban [Xarelto] 20 mg PO QDAY 03/20/21 03/20/21 Unknown History carvediloL [Coreg] 6.25 mg PO BID 03/20/21 03/20/21 Unknown History risperiDONE [RisperDAL] 1 mg PO DAILY 03/20/21 03/20/21 Unknown History traZODone [Desyrel] 50 mg PO HS 03/20/21 03/20/21 Unknown History Albuterol Mdi (or & Nicu Only) 2 puff IH QID PRN #1 can 03/22/21 Unknown Rx [ProAir HFA Inhaler] dexAMETHasone [Decadron] 8 mg PO DAILY #16 tablet 03/22/21 Unknown Rx Permethrin 5% [Acticin 5% CREAM] 1 applicatio TP ONCE #2 tube 07/06/21 Unknown Rx hydrOXYzine HCL [Atarax] 25 mg PO Q6HR PRN #30 tablet 07/06/21 Unknown Rx ED Physical Exam - General Limitations: No Limitations General appearance: alert, in no apparent distress - Head Head exam: Present: atraumatic, normocephalic - Eye Eye exam: Present: normal appearance, EOMI. Absent: nystagmus - ENT ENT exam: Present: normal exam, normal orophraynx, mucous membranes moist, normal external ear exam - Neck Neck exam: Present: normal inspection, full ROM. Absent: tenderness, meningismus - Respiratory Respiratory exam: Absent: normal lung sounds bilaterally, stridor, accessory muscle use - Cardiovascular Cardiovascular Exam: Absent: JVD - GI/Abdominal GI/Abdominal exam: Present: soft. Absent: distended, tenderness, guarding, rebound, rigid, pulsatile mass - Extremities Exam Extremities exam: Present: normal inspection, full ROM, other (2+ pulses noted in the bilateral upper and lower extremities. There is no palpable cord. negative Homans sign. Muscular compartments are soft. The pelvis is stable.). Absent: pedal edema, calf tenderness - Back Exam Back exam: Present: normal inspection. Absent: tenderness, CVA tenderness (R), CVA tenderness (L), paraspinal tenderness, vertebral tenderness - Neurological Exam Neurological exam: Present: alert, oriented X3, other (No facial droop. Tongue midline. Extraocular movements intact bilaterally. Facial sensation intact to light touch in V1, V2, V3 distribution bilaterally. 5 and a 5 strength in 4 extremities. Sensation intact to light touch in 4 extremities.) - Psychiatric Psychiatric exam: Present: normal affect, normal mood - Skin Skin exam: Present: warm, dry, normal color, other (Excoriated scratch fernández are noted, punctate bite lesions of note) ED Course Vital Signs 07/06/21 16:12 Temperature 97.9 F Pulse Rate 81 Respiratory 16 Rate Blood Pressure 111/75 [Left] O2 Sat by Pulse 100 Oximetry ED Medical Decision Making - Lab Data Vital Signs 07/06/21 16:12 Temperature 97.9 F Pulse Rate 81 Respiratory 16 Rate Blood Pressure 111/75 [Left] O2 Sat by Pulse 100 Oximetry - Medical Decision Making Differential diagnosis, including not limited to: Bedbugs, arthropod bites Assessment and plan: 51-year-old female, with probable arthropod bites. She is afebrile, with reassuring vital signs in no acute distress. Start permethrin, discharged with as needed Atarax, extensively counseled to follow-up with her landlord, to have her apartment evaluated for bedbugs/insect infestation. She does not appear to have an emergent medical condition present at this time Critical care attestation.: If time is entered above; I have spent that time in minutes in the direct care of this critically ill patient, excluding procedure time. ED Disposition Clinical Impression: Skin pruritus Disposition: HOME / SELF CARE / HOMELESS Is pt being admited?: No Does the pt Need Aspirin: No Condition: Good Instructions: Bedbugs, [id number] Additional Instructions: Skin lesions are very suspicious for insect bites/arthropod bites. Recommend that patient's apartment be evaluated by an residence manager, to assess for possible insect infestation. If patient is renting her property, it is typically the responsibility of the landlord to provide this service. Therefore, the patient should follow-up with her landlord/apartment typists supervisor, to coordinate this evaluation. Please wash all clothing and linens with hot water and soap. Consider purchasing a mattress cover. Use the permethrin as directed on day 1, and again on day 7, if still experiencing skin lesions/itching. Use the Atarax as needed for itching. Follow-up with a primary care doctor within the next month. Please return to the emergency room right away with new pain, worsened pain, migration of pain, projectile vomiting, change in mental status, confusion, inability tolerate liquid feeds, new, worsened or different symptoms not present on the initial emergency room evaluation Referrals: [facility] [Provider Group] - 3-5 Days Forms: Work/School Release Form(ED)
== END 2021-07-06 23:31 | disposition home or self-care (01) ==
LOC: ED 15:11
DX: L29.9 Pruritus, unspecified (principal); I10 Essential (primary) hypertension; F31.9 Bipolar disorder, unspecified; J45.909 Unspecified asthma, uncomplicated; Z98.890 Other specified postprocedural states; Z88.5 Allergy status to narcotic agent; Z87.891 Personal history of nicotine dependence; Z88.6 Allergy status to analgesic agent; Z79.899 Other long term (current) drug therapy
CPT/HCPCS: 99282; Q0177

== ENCOUNTER 2021-07-29 01:41 | Emergency (ER) | payer MEDICARE ==
[2021-07-29 04:01] VITALS: BP 110/68
[2021-07-29] MEDS ORDERED: diphenhydrAMINE 25 MG CAP PO ONE (07:46)
--- NOTE | 2021-07-29 07:52 | Emergency Department Report ---
ED General Adult HPI - General Chief complaint: Skin Rash Stated complaint: FACIAL PAIN Time Seen by Provider: 07/29/21 06:43 Source: patient Mode of arrival: Ambulatory Limitations: No Limitations - History of Present Illness Initial comments: 51 yo F who present with generalized body aches with chills that started after removing several ticks from her body in the last 1 month. She says someone that she was visiting had helped her removed some of the ticks from her back/trunk. She reports that the area itches sometimes. Pt denies smoking or alcohol abuse nor any other illicit drug use. No other modifying or associated factors reported. - Related Data Home Medications Medication Instructions Recorded Confirmed Last Taken ALBUTEROL NEB's [Proventil 0.083% 1 bottle IN PRN PRN 03/20/21 03/20/21 Unknown NEBS] AtorvaSTATin [Lipitor] 20 mg PO DAILY 03/20/21 03/20/21 Unknown Furosemide [Lasix TAB] 40 mg PO QDAY 03/20/21 03/20/21 Unknown Quetiapine Fumarate [SEROquel] 50 mg PO QDAY 03/20/21 03/20/21 Unknown Rivaroxaban [Xarelto] 20 mg PO QDAY 03/20/21 03/20/21 Unknown carvediloL [Coreg] 6.25 mg PO BID 03/20/21 03/20/21 Unknown risperiDONE [RisperDAL] 1 mg PO DAILY 03/20/21 03/20/21 Unknown traZODone [Desyrel] 50 mg PO HS 03/20/21 03/20/21 Unknown Previous Rx's Medication Instructions Recorded Last Taken Type Albuterol Mdi (or & Nicu Only) 2 puff IH QID PRN #1 can 03/22/21 Unknown Rx [ProAir HFA Inhaler] dexAMETHasone [Decadron] 8 mg PO DAILY #16 tablet 03/22/21 Unknown Rx Permethrin 5% [Acticin 5% CREAM] 1 applicatio TP ONCE #2 tube 07/06/21 Unknown Rx hydrOXYzine HCL [Atarax] 25 mg PO Q6HR PRN #30 tablet 07/06/21 Unknown Rx DOXYCYCLINE Hyclate [Vibramycin 100 mg PO Q12HR 14 Days #28 07/29/21 Unknown Rx CAP] capsule NS predniSONE [Deltasone] 20 mg PO QDAY 7 Days #7 tab NS 07/29/21 Unknown Rx Allergies Allergy/AdvReac Type Severity Reaction Status Date / Time aspirin Allergy Swelling, Verified 01/11/21 13:31 itching and hives cefepime Allergy Shortness Verified 03/20/21 17:36 of Breath ED Review of Systems ROS: Stated complaint: FACIAL PAIN Other details as noted in HPI Comment: All other systems reviewed and negative Skin: rash, pruritus ED Past Medical Hx - Past Medical History Previous Medical History?: Yes Hx Hypertension: Yes Hx Heart Attack/AMI: Yes Hx Congestive Heart Failure: No Hx Diabetes: No Hx Psychiatric Treatment: Yes (bipolar) Hx Asthma: Yes Hx COPD: No Additional medical history: bronchitis, CHF - Surgical History Past Surgical History?: Yes Additional Surgical History: . heart cath x3. lower spinal sx - Social History Smoking Status: Never Smoker Substance Use Type: None - Medications Home Medications: Home Medications Medication Instructions Recorded Confirmed Last Taken Type ALBUTEROL NEB's [Proventil 0.083% 1 bottle IN PRN PRN 03/20/21 03/20/21 Unknown History NEBS] AtorvaSTATin [Lipitor] 20 mg PO DAILY 03/20/21 03/20/21 Unknown History Furosemide [Lasix TAB] 40 mg PO QDAY 03/20/21 03/20/21 Unknown History Quetiapine Fumarate [SEROquel] 50 mg PO QDAY 03/20/21 03/20/21 Unknown History Rivaroxaban [Xarelto] 20 mg PO QDAY 03/20/21 03/20/21 Unknown History carvediloL [Coreg] 6.25 mg PO BID 03/20/21 03/20/21 Unknown History risperiDONE [RisperDAL] 1 mg PO DAILY 03/20/21 03/20/21 Unknown History traZODone [Desyrel] 50 mg PO HS 03/20/21 03/20/21 Unknown History Albuterol Mdi (or & Nicu Only) 2 puff IH QID PRN #1 can 03/22/21 Unknown Rx [ProAir HFA Inhaler] dexAMETHasone [Decadron] 8 mg PO DAILY #16 tablet 03/22/21 Unknown Rx Permethrin 5% [Acticin 5% CREAM] 1 applicatio TP ONCE #2 tube 07/06/21 Unknown Rx hydrOXYzine HCL [Atarax] 25 mg PO Q6HR PRN #30 tablet 07/06/21 Unknown Rx DOXYCYCLINE Hyclate [Vibramycin 100 mg PO Q12HR 14 Days #28 07/29/21 Unknown Rx CAP] capsule NS predniSONE [Deltasone] 20 mg PO QDAY 7 Days #7 tab NS 07/29/21 Unknown Rx ED Physical Exam - General Limitations: No Limitations General appearance: alert, in no apparent distress - Head Head exam: Present: normal inspection - Eye Eye exam: Present: normal appearance. Absent: scleral icterus Pupils: Present: normal accommodation - ENT ENT exam: Present: normal exam, normal orophraynx, mucous membranes moist - Neck Neck exam: Present: normal inspection, full ROM. Absent: tenderness, meningismus - Respiratory Respiratory exam: Present: normal lung sounds bilaterally. Absent: respiratory distress, accessory muscle use - Cardiovascular Cardiovascular Exam: Present: regular rate, normal rhythm, normal heart sounds - GI/Abdominal GI/Abdominal exam: Present: soft, normal bowel sounds. Absent: distended, tenderness - Extremities Exam Extremities exam: Present: normal inspection. Absent: pedal edema, calf tenderness - Back Exam Back exam: Absent: tenderness - Neurological Exam Neurological exam: Present: alert, oriented X3 - Psychiatric Psychiatric exam: Present: normal affect - Skin Skin exam: Present: rash, other (maculopapula). Absent: erythema ED Course Vital Signs 07/29/21 03:30 Temperature 98.3 F Pulse Rate 60 Respiratory 18 Rate Blood Pressure 110/68 O2 Sat by Pulse 100 Oximetry - Reevaluation(s) Reevaluation #1: 07/29/21 07:52 here with tick bite associated with itchiness and generalized muscle aches and fatigue-- concern for tick bite symptoms-- so will go ahead and treat symptomatically while trying the possibility of getting ehrlichiosis/ tick panel order with other routine CBC, CMP and UA for any systemic infectious process or electrolyte abnormality as a cause of generalized body fatigue or aches. Reevaluation #2: 07/29/21 12:48 I was informed that patient Eloped while i was busy with cardiac arrest patient in the main ED. Reevaluation #3: 07/29/21 14:03 Patient resurface that she has been in the room all this while-- I was unable to order the tick panel so will go ahead and start treatment with doxycycline and close follow up with her PCP --patient labs reviewed and noted to be within normal limits including LFTs. 07/29/21 14:10 ED Medical Decision Making - Lab Data Result diagrams: 07/29/21 07:52 07/29/21 07:52 Critical care attestation.: If time is entered above; I have spent that time in minutes in the direct care of this critically ill patient, excluding procedure time. ED Disposition Clinical Impression: Generalized body aches Tick bite Qualifiers: Encounter type: initial encounter Site of tick bite: abdominal wall Qualified Code(s): S30.861A - Insect bite (nonvenomous) of abdominal wall, initial encounter Fatigue Qualifiers: Fatigue type: unspecified Qualified Code(s): R53.83 - Other fatigue Disposition: 01 HOME / SELF CARE / HOMELESS Is pt being admited?: No Does the pt Need Aspirin: No Condition: Stable Instructions: Tick Bite Information, Adult, [id number], Lyme Disease Additional Instructions: It is very important that you take and complete your antibiotics to continue to help your symptoms Take your prednisone as prescribed to help your body aches Call and schedule follow-up with your primary doctor in the next 3 to 5 days for progress Please do not hesitate to call or return to emergency room if your symptoms worsen Prescriptions: predniSONE [Deltasone] 20 mg PO QDAY 7 Days #7 tab NS DOXYCYCLINE Hyclate [Vibramycin CAP] 100 mg PO Q12HR 14 Days #28 capsule NS Referrals: PRIMARY CARE, [Primary Care Provider] - 3-5 Days Time of Disposition: 14:04
[2021-07-29 08:31] LABS: Basophils # (Auto) 0.1 K/mm3 (0.0-0.1); Basophils % (Auto) 0.8 % (0.0-1.8); Eosinophils # (Auto) 0.1 K/mm3 (0.0-0.4); Eosinophils % (Auto) 1.8 % (0.0-4.3); Hematocrit 38.3 % (30.3-42.9); Hemoglobin 12.3 gm/dl (10.1-14.3); Lymphocytes # (Auto) 1.7 K/mm3 (1.2-5.4); Lymphocytes % (Auto) 23.4 % (13.4-35.0); Mean Corpuscular HGB Conc 32 % (30-34); Mean Corpuscular Volume 83 fl (79-97); Monocytes # (Auto) 1.1 K/mm3 (0.0-0.8); Monocytes % (Auto) 15.7 % (0.0-7.3); Platelet Count 304 K/mm3 (140-440); Red Blood Count 4.62 M/mm3 (3.65-5.03); Red Cell Distribution Width 19.6 % (13.2-15.2)
[2021-07-29 09:05] LABS: Alanine Aminotransferase 13 units/L (7-56); Albumin 3.5 g/dL (3.9-5); BUN/Creatinine Ratio 18; Blood Urea Nitrogen 16 mg/dL (7-17); Calcium 8.9 mg/dL (8.4-10.2); Hemolysis Index 5
== END 2021-07-29 13:27 | disposition home or self-care (01) ==
LOC: ED 01:41
DX: T14.8XXA Other injury of unspecified body region, initial encounter (principal); M79.10 Myalgia, unspecified site; R53.83 Other fatigue; I10 Essential (primary) hypertension; I21.9 Acute myocardial infarction, unspecified; J45.909 Unspecified asthma, uncomplicated; F31.9 Bipolar disorder, unspecified; Z91.09 Other allergy status, other than to drugs and biological substances; Z79.899 Other long term (current) drug therapy; W57.XXXA Bitten or stung by nonvenomous insect and other nonvenomous arthropods, initial encounter; Y93.89 Activity, other specified; Y92.89 Other specified places as the place of occurrence of the external cause; Y99.8 Other external cause status
CPT/HCPCS: 36415; 80053; 85025; 99283